=== PATIENT | male | born 1955 | race Asian ===

== ENCOUNTER 2019-06-16 01:07 | Inpatient (IN) | payer OTHER ==
--- NOTE | 2019-06-16 02:00 | PDOC ---
History of Present Illness - General Chief Complaint: Hemoptysis Stated Complaint: VOMITING BLOOD Time Seen by Provider: 06/16/19 01:31 History Source: Patient, Family (Son present at bedside.) Exam Limitations: No Limitations - History of Present Illness Initial Comments: HPI: 64 y/o male presenting to [facility] ER complaining of coughing up blood since this afternoon. Estimates approx. 15 episodes during the afternoon. Denies associated chest pain, SOB, fevers, or chills. Denies any abdominal pain, sore throat, or vomiting. Has been in normal state of health. Endorses 1 episode of night sweats earlier this week. Denies no unintentional weight loss, recent travel, or exposure to visitors from outside the country. Denies known h/o or exposure to TB. Pt is currently prescribed Plavix. Started taking it following vascular surgery by Dr. Garcia last year. Social Hx: - Former smoker, believes stopped 1.5 years ago Medical Hx: - HTN - HLD - Diabetes, not insulin dependent - H/o of ischemia of toe Review of Systems: In addition to that documented in the HPI above, the additional ROS was obtained : Constitutional: Denies fevers or chills Head: Denies vision changes ENMT: Denies sore throat CV: Denies chest pain Resp: Denies SOB GI: Denies vomiting or diarrhea : Denies painful urination MSK: Denies recent trauma Skin: Denies new rashes Neuro: Denies new numbness or tingling or weakness Endocrine: Denies polyuria Heme: Denies bleeding or bruising Physical Examination: Constitutional: Well-developed, well-nourished adult male in no acute distress or obvious discomfort. Found sitting upright on edge of hospital bed. Alert and oriented x4. Answered all questions appropriately and completely. Speech was non -labored, non-pressured. Single episode of coughing during interview produced small amount of bloody mucous. Head: Normocephalic. No obvious external signs of trauma. Eyes: Sclerae white. Ears: Hearing grossly intact. Nose: No nasal discharge. Throat: Oral cavity and pharynx normal. No inflammation, swelling, exudate, or lesions. Teeth and gingiva in good general condition. Neck: Supple, trachea is midline. Cardiovascular / Chest: Regular rate and regular rhythm. No murmur, rubs, clicks , or gallops. Peripheral pulses: radial pulses full. No pretibial edema. Respiratory: Breathing unlabored. Equal chest rise and fall. Clear to auscultation bilaterally. No stridor, no wheezing, no rhonchi. Gastrointestinal: abdomen is soft, non-tender, non-distended. Neuro: Alert and oriented. Moving all four extremities spontaneously. Skin: Warm, dry, and intact. Psych: Affect: appropriate. Mood: normal. MDM: *Reviewed vital signs, nursing notes, and prior visit documentation (if available). 64 y/o male presenting with a one day h/o of hemoptysis. Former smoker. On Plavix. No additional infectious symptoms. No B cell or additional TB symptoms/ exposures. Afebrile. Vitals unremarkable for hypotension or tachycardia. Physical exam as described above. Will further evaluate with non-con chest CT. Chest CT revealed right lower and upper lobe consolidation suggestive for possible post obstructive pneumonia. Possible right hilar mass. Pt and son deny known mass. Will obtain CBC, CMP, and blood cultures. Ordered Levaquin for community acquired pneumonia. CBC unremarkable for leukocytosis. CMP unremarkable for significant electrolyte derangement. Will admit for IV antibiotics and further workup of possible mass. 04:30 Tele[address] discussion with resident Dr. Cm. Verbally appraised of the pts HPI, ED course, and current plan of management. Will admit pt to med/surg for attending Dr. Wilson. Enrique Bustos M.D., PGY2 Emergency Medicine Resident Past History - Past Medical History Allergies/Adverse Reactions: Allergies Allergy/AdvReac Type Severity Reaction Status Date / Time Penicillins Allergy Mild Rash Verified 04/23/18 09:57 Home Medications: Ambulatory Orders metFORMIN HCL [Metformin HCl] 1,000 mg PO HS 02/03/16 Losartan Potassium [Cozaar -] 100 mg PO DAILY 03/03/18 Simvastatin 20 mg PO DAILY 03/03/18 metFORMIN HCL [Metformin HCl] 500 mg PO AM 03/03/18 Amlodipine Besylate [Norvasc -] 10 mg PO HS #30 tablet 03/09/18 Clopidogrel Bisulfate [Plavix] 75 mg PO DAILY #30 tablet 03/09/18 Hydrochlorothiazide [Hctz -] 12.5 mg PO DAILY #30 cap 03/09/18 Insulin Detemir [Levemir Flextouch] 5 unit SQ DAILY@0700 #3 insuln.pen 03/09/18 Anemia: No Asthma: No Cancer: No Cardiac Disorders: No CVA: No COPD: No CHF: No Dementia: No Diabetes: Yes GI Disorders: No Disorders: No HTN: Yes Hypercholesterolemia: Yes Liver Disease: No Seizures: No Thyroid Disease: No - Suicide/Smoking/Psychosocial Hx Smoking History: Unknown if ever smoked Have you smoked in the past 12 months: Yes Number of Cigarettes Smoked Daily: 10 'Breaking Loose' booklet given: 03/03/18 Hx Alcohol Use: Yes (weekends) Drug/Substance Use Hx: No Substance Use Type: Alcohol Hx Substance Use Treatment: No *Physical Exam - Vital Signs Last Vital Signs Temp Pulse Resp BP Pulse Ox 98.3 F 94 H 18 141/87 99 06/16/19 01:26 06/16/19 01:26 06/16/19 01:26 06/16/19 01:26 06/16/19 01:26 ED Treatment Course - LABORATORY CBC & Chemistry Diagram: 06/16/19 03:30 06/16/19 03:30 - RADIOLOGY Radiology Studies Ordered: Category Date Time Status CHEST CT WITHOUT CONTRAST [CT] Stat CT Scan 06/16/19 01:57 Ordered Radiograph Interpretation: Non-con Chest CT: THIS IS A PRELIMINARY REPORT FROM [facility] DATE OF SERVICE: 2019-06-16 02:03:50 IMAGES: [id number] EXAM: CHEST CT WITHOUT CONTRAST HISTORY: Hemoptysis COMPARISON: None. FINDINGS: There is no aortic aneurysm. There may be moderate right-sided hilar adenopathy or mass, though evaluation is limited without contrast. There is a consolidation in the right lower lobe consistent with pneumonia, unclear of postobstructive related to tumor. Additional small infiltrates noted in the right upper lobe, suggesting pneumonia. The heart size is normal. There is narrowing of the right upper lobe bronchus, possibly due to mass or adenopathy. The trachea and upper bronchi are patent. There is no pleural or pericardial effusion. Upper abdominal structures are normal IMPRESSION: Possible right hilar adenopathy or mass with narrowing of the right upper lobe bronchus. Right lower lobe and upper lobe consolidations, consistent with pneumonia, possibly postobstructive in nature and related tumor. One or more of the following dose reduction techniques were used: automated exposure control, adjustment of the mA and/or kV according to patient size, use of iterative reconstructive technique. THIS DOCUMENT HAS BEEN ELECTRONICALLY SIGNED Kuldip Montano MD 06/16/2019 02:58 EST *DC/Admit/Observation/Transfer Diagnosis at time of Disposition: Pneumonia Qualifiers: Pneumonia type: due to unspecified organism Laterality: right Lung location: unspecified part of lung Qualified Code(s): J18.9 - Pneumonia, unspecified organism - Discharge Dispostion Condition at time of disposition: Stable Decision to Admit order: Yes - Referrals - Patient Instructions - Post Discharge Activity
--- NOTE | 2019-06-16 03:02 | PDOC ---
Attending Attestation - Resident Resident Name: Enrique Bustos - ED Attending Attestation I have performed the following: I have examined & evaluated the patient, The case was reviewed & discussed with the resident, I agree w/resident's findings & plan - HPI HPI: 06/16/19 03:32 Pt comes with hemoptysis; he ahs a hx of smoking and a hx of prostate cancer. - Physicial Exam PE: 06/16/19 03:33 Agree with resident exam - Medical Decision Making 06/16/19 03:02 Patient Name: DEISI DAVIES THIS IS A PRELIMINARY REPORT FROM [facility] DATE OF SERVICE: 2019-06-16 02:03:50 IMAGES: [id number] EXAM: CHEST CT WITHOUT CONTRAST HISTORY: Hemoptysis COMPARISON: None. FINDINGS: There is no aortic aneurysm. There may be moderate right-sided hilar adenopathy or mass, though evaluation is limited without contrast. There is a consolidation in the right lower lobe consistent with pneumonia, unclear of postobstructive related to tumor. Additional small infiltrates noted in the right upper lobe, suggesting pneumonia. The heart size is normal. There is narrowing of the right upper lobe bronchus, possibly due to mass or adenopathy. The trachea and upper bronchi are patent. There is no pleural or pericardial effusion. Upper abdominal structures are normal IMPRESSION: Possible right hilar adenopathy or mass with narrowing of the right upper lobe bronchus. Right lower lobe and upper lobe consolidations, consistent with pneumonia, possibly postobstructive in nature and related tumor. 06/16/19 03:33 Pt will be admitted and labs will be sent. He needs IV abx for possible pneumonia and pulm consult for bronchoscopy to r/o primary lung cancer vs infectious/fungal mass, vs mets form prostate ca.
[2019-06-16 03:35] LABS: BASO % 0.6 % (0-2.0); HEMATOCRIT 31.9 % (35.4-49); HEMOGLOBIN 10.8 GM/dL (11.7-16.9); LYMPH % 27.2 % (8-40); MCH 28.9 pg (25.7-33.7); MCHC 33.8 g/dl (32.0-35.9); MEAN CELL VOLUME 85.7 fl (80-96); MEAN PLT VOLUME 6.7 fl (7.5-11.1); MONO % 7.1 % (3.8-10.2); NEUT % 61.1 % (42.8-82.8); PLATELET COUNT 272 K/MM3 (134-434); RBC 3.72 M/mm3 (4.00-5.60); RDW 13.3 % (11.9-15.9); WHITE BLOOD COUNT 6.1 K/mm3 (4.0-10.0)
[2019-06-16 03:57] LABS: ALBUMIN 3.1 g/dl (3.4-5.0); BILIRUBIN,TOTAL 0.3 mg/dL (0.2-1); BLOOD UREA NITROGEN 11.5 mg/dL (7-18); CALCIUM 8.6 mg/dL (8.5-10.1); CREATININE 0.9 mg/dL (0.55-1.3); POTASSIUM 4.2 mmol/L (3.5-5.1)
--- NOTE | 2019-06-16 05:36 | HP ---
CHIEF COMPLAINT: Cough with blood PCP: HISTORY OF PRESENT ILLNESS: 64 y/o M presenting to ED, accompanied by son whom translated 2/2 pt limited Korean, c/o bloody cough. Cough w blood started 3 weeks ago. Cough at visit was dry and nonproductive but pt states his concern of x15 episodes of phlegm with blood. Cough is associated with new onset of night sweats. He recently quit smoking cigarettes. He denies NVFD and chills. He has not felt dizzy or fainted. He does not experience SOB, CP, and bone pain. 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 Pt denies recent travel, sick contacts, or new foods. Pt has not been around anyone who has traveled recently to his knowledge and has not been around persons infected with TB. Pt states he only uses one pillow at night and has no night time awakening to catch his breath. Pt is not physically active by lifestyle choice so he cannot confirm how far he can walk or how many stairs he can climb. ER course was notable for: (1) CT chest with findings significant for RIGHT hilar adenopathy, RIGHT upper lobe consolidation, RIGHT lower lobe consolidation (2) Receiving levaquin Recent Travel: Denies PAST MEDICAL HISTORY: - DM - HTN - HLD - Prostate CA PAST SURGICAL HISTORY: Left iliac artery angioplasty (03/08/18) Social History: Smoking: Former smoker. 40 years at 1 ppd. Alcohol:4-5 glasses of scotch per day Drugs: Denies Family History: Allergies Penicillins Allergy (Mild, Verified 04/23/18 09:57) Rash HOME MEDICATIONS: Home Medications Medication Instructions Recorded metFORMIN HCL [Metformin HCl] 1,000 mg PO HS 02/03/16 Losartan Potassium [Cozaar -] 100 mg PO DAILY 03/03/18 Simvastatin 20 mg PO DAILY 03/03/18 metFORMIN HCL [Metformin HCl] 500 mg PO AM 03/03/18 Amlodipine Besylate [Norvasc -] 10 mg PO HS #30 tablet 03/09/18 Clopidogrel Bisulfate [Plavix] 75 mg PO DAILY #30 tablet 03/09/18 Hydrochlorothiazide [Hctz -] 12.5 mg PO DAILY #30 cap 03/09/18 Insulin Detemir [Levemir Flextouch] 5 unit SQ DAILY@0700 #3 insuln.pen 03/09/18 REVIEW OF SYSTEMS CONSTITUTIONAL: Absent: fever, chills, diaphoresis, generalized weakness, malaise, loss of appetite, weight change HEENT: Absent: rhinorrhea, nasal congestion, throat pain, throat swelling, difficulty swallowing, mouth swelling, ear pain, eye pain, visual changes CARDIOVASCULAR: Absent: chest pain, syncope, palpitations, irregular heart rate, lightheadedness , peripheral edema RESPIRATORY: Absent: cough, shortness of breath, dyspnea with exertion, orthopnea, wheezing, stridor, hemoptysis GASTROINTESTINAL: Absent: abdominal pain, abdominal distension, nausea, vomiting, diarrhea, constipation, melena, hematochezia GENITOURINARY: Absent: dysuria, frequency, urgency, hesitancy, hematuria, flank pain, genital pain MUSCULOSKELETAL: Absent: myalgia, arthralgia, joint swelling, back pain, neck pain SKIN: Absent: rash, itching, pallor HEMATOLOGIC/IMMUNOLOGIC: Absent: easy bleeding, easy bruising, lymphadenopathy, frequent infections ENDOCRINE: Absent: unexplained weight gain, unexplained weight loss, heat intolerance, cold intolerance NEUROLOGIC: Absent: headache, focal weakness or paresthesias, dizziness, unsteady gait, seizure, mental status changes, bladder or bowel incontinence PSYCHIATRIC: Absent: anxiety, depression, suicidal or homicidal ideation, hallucinations. PHYSICAL EXAMINATION Vital Signs Temp Pulse Resp BP Pulse Ox 98.3 F 87 18 135/62 96 06/16/19 05:22 06/16/19 05:22 06/16/19 05:22 06/16/19 05:22 06/16/19 05:22 GENERAL: Awake, alert, and fully oriented, in no acute distress. HEAD: Normal with no signs of trauma. EYES: Conjunctival injection.hyperemia Pupils equal, round and reactive to light , extraocular movements intact, sclera anicteric, conjunctiva clear. No lid lag. EARS, NOSE, THROAT: Ears normal, nares patent, oropharynx clear without exudates. Moist mucous membranes. NECK: NO head + neck lymphadenopathy appreciated. Normal range of motion, supple without lymphadenopathy, JVD, or masses. LUNGS: RIGHT upper lobe wheezing from posterior. Tactile dullness on RIGHT upper and middle lobe. Otherwise, breath sounds equal, clear to auscultation bilaterally. No crackles and no use of accessory muscles. HEART: Regular rate and rhythm, normal S1 and S2 without murmur, rub or gallop. ABDOMEN: Soft, nontender, not distended, normoactive bowel sounds, no guarding, no rebound, no masses. No hepatomegaly or splenomegaly. MUSCULOSKELETAL: Normal range of motion at all joints. No bony deformities or tenderness. No CVA tenderness. UPPER EXTREMITIES: NO axillary lymphadenpathy appreciated. 2+ pulses, warm, well -perfused. No cyanosis. No clubbing. No peripheral edema. LOWER EXTREMITIES: 2+ pulses, warm, well-perfused. No calf tenderness. No peripheral edema. NEUROLOGICAL: Cranial nerves II-XII intact. Normal speech. Normal gait. PSYCHIATRIC: Cooperative. Good eye contact. Appropriate mood and affect. SKIN: Warm, dry, normal turgor, no rashes or lesions noted, normal capillary refill. Laboratory Results - last 24 hr 06/16/19 06/16/19 03:30 03:30 WBC 6.1 RBC 3.72 L Hgb 10.8 L Hct 31.9 L D MCV 85.7 MCH 28.9 MCHC 33.8 RDW 13.3 Plt Count 272 D MPV 6.7 L D Absolute Neuts (auto) 3.7 Neutrophils % 61.1 Lymphocytes % 27.2 Monocytes % 7.1 Eosinophils % 4.0 Basophils % 0.6 Nucleated RBC % 0 Sodium 135 L Potassium 4.2 Chloride 102 Carbon Dioxide 20 L Anion Gap 13 BUN 11.5 Creatinine 0.9 Est GFR (CKD-EPI)AfAm 105.72 Est GFR (CKD-EPI)NonAf 91.22 Random Glucose 233 H Calcium 8.6 Total Bilirubin 0.3 AST 20 ALT 28 Alkaline Phosphatase 108 Total Protein 7.0 Albumin 3.1 L ASSESSMENT/PLAN: 64 y/o male with hemoptysis and positive lung findings on CT in the absence of physical exam findings supporting infectious process. # Poss. PNA VS poss. lung tumor - Repeat CT with contrast to elucidate RIGHT pulmonary mass - Culture sputum sample - Consult pulmonology - If CT neg. for PNA, consult oncology #F/E/N - No standing fluids - Monitor electrolytes - Diabetic diet # DVT prophylaxis - Regular ambulation q2h # Dispo Visit type - Emergency Visit Emergency Visit: Yes Care time: The patient presented to the Emergency Department on the above date and was hospitalized for further evaluation of their emergent condition. - New Patient This patient is new to me today: Yes Date on this admission: 06/16/19 - Critical Care Critical Care patient: No ATTENDING PHYSICIAN STATEMENT I saw and evaluated the patient. I reviewed the resident's note and discussed the case with the resident. I agree with the resident's findings and plan as documented. SUBJECTIVE: OBJECTIVE: ASSESSMENT AND PLAN:
--- NOTE | 2019-06-16 05:58 | PN ---
Teaching Attending Note Name of Resident: Khadar Fournier ATTENDING PHYSICIAN STATEMENT I saw and evaluated the patient. I reviewed the resident's note and discussed the case with the resident. I agree with the resident's findings and plan as documented. He is a 64 Y/O M W uncontrolled DM, HTN, HLD, PVD S/P PCI last year on plavix, EX heavy smoker and active Etoh abused( binge drinker). 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 no recent travels, has no pets in the house. Denies any urinary complaints of HX of BPH He is a binge drinker and drinks 6 drinks of whiskey/day during the day In the ED he was treated for possible PNA In exam he is afebrile, in no distress, talks in full sentences, CVS:S1S2, NO LAD, CTAB, Abd:bs+ NT/ND, Ext: no edema Labs: No leukocytosis, CT chest pending reports A&P: Hemoptysis in a smoker: less likely to be PNA and will hold off antibiotics, pending Pulm evaluation, and CT with contrast, Will also ask IR for possible Biopsy VS bronchoscopy, send sputum for CX and cytology. send Quantiferon levels. DM: will hold Po medications and will start on insulin sliding scale. PVD: on plavix, will C/W aspirin at this time pending pulmonology recs C/W statins rest of the management per HS notes
[2019-06-16] MEDS: INSULIN SLIDING SCALE (NOVOLOG) 1 VIAL SQ SCH ×4 (08:40→22:17)
[2019-06-16 08:45] LABS: INR 1.14 (0.83-1.09); PROTHROMBIN TIME (PATIENT) 13.5 SEC (9.7-13.0)
[2019-06-16 08:48] LABS: ACTIVATED PTT 34.4 SECONDS (25.2-36.5)
[2019-06-16 08:55] LABS: BASO % 0.3 % (0-2.0); EOS % 2.2 % (0-4.5); HEMATOCRIT 30.7 % (35.4-49); HEMOGLOBIN 10.6 GM/dL (11.7-16.9); LYMPH % 13.5 % (8-40); MCH 28.9 pg (25.7-33.7); MCHC 34.4 g/dl (32.0-35.9); MEAN PLT VOLUME 6.5 fl (7.5-11.1); MONO % 5.7 % (3.8-10.2); NEUT % 78.3 % (42.8-82.8); PLATELET COUNT 269 K/MM3 (134-434); RBC 3.66 M/mm3 (4.00-5.60); RDW 13.3 % (11.9-15.9); WHITE BLOOD COUNT 7.1 K/mm3 (4.0-10.0)
[2019-06-16 09:06] LABS: BILIRUBIN,TOTAL 0.6 mg/dL (0.2-1); BLOOD UREA NITROGEN 9.6 mg/dL (7-18); CALCIUM 8.7 mg/dL (8.5-10.1); CREATININE 0.8 mg/dL (0.55-1.3); MAGNESIUM 1.6 mg/dL (1.8-2.4); POTASSIUM 4.5 mmol/L (3.5-5.1); TOT PROT 7.2 g/dl (6.4-8.2)
[2019-06-16] MEDS: LOSARTAN POTASSIUM 50 MG TABLET (FP) PO SCH (09:41)
[2019-06-16] MEDS ORDERED: CLOPIDOGREL BISULFATE 75 MG TABLET (FP) PO SCH (10:00)
--- NOTE | 2019-06-16 10:25 | EKG ---
Test Reason : Blood Pressure : / mmHG Vent. Rate : 086 BPM Atrial Rate : 086 BPM P-R Int : 182 ms QRS Dur : 100 ms QT Int : 376 ms P-R-T Axes : 063 046 075 degrees QTc Int : 449 ms NORMAL SINUS RHYTHM NONSPECIFIC T WAVE ABNORMALITY ABNORMAL ECG WHEN COMPARED WITH ECG OF 03-MAR-2018 11:12, NO SIGNIFICANT CHANGE WAS FOUND Confirmed by Rea Velasco ([id number]) on 06/16/2019 10:24:33 AM Referred By: Confirmed By:Rea Velasco
--- NOTE | 2019-06-16 11:56 | CON.PULM ---
Consult Consult Specialty:: PULMONARY Referred by:: Dr Mejias Reason for Consultation:: hemoptysis - History of Present Illness Chief Complaint: hemoptysis History of Present Illness: 64yo male with h/o HTN, DM, hyperlipidemia, prostate ca, PAD who was admitted with hemoptysis. States hemoptysis started yesterday but per chart had started 3 weeks ago. Described as dark red, mixed with phlegm and about 1/2 tsp/day. No chest pain or discomfort. No history of asthma or COPD. He is a former long time smoker, started around 22yo, 1 PPD until he quit 1 1/2 years ago. He takes plavix after vascular surgery 1 1/2 years ago. No cardiac stents. No family history of cancers. 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 No fevers , chills but with occasional sweats. No unintentional weight loss. - History Source History Provided By: Patient, Family Member, Medical Record Limitations to Obtaining History: Language Barrier - Past Medical History Cardio/Vascular: Yes: HTN, Hyperlipdemia Endocrine: Yes: Diabetes Mellitus - Alcohol/Substance Use Hx Alcohol Use: Yes (weekends) - Smoking History Smoking history: Unknown if ever smoked Have you smoked in the past 12 months: Yes Aproximately how many cigarettes per day: 10 Home Medications - Allergies Allergies/Adverse Reactions: Allergies Allergy/AdvReac Type Severity Reaction Status Date / Time Penicillins Allergy Mild Rash Verified 04/23/18 09:57 - Home Medications Home Medications: Ambulatory Orders Losartan Potassium [Cozaar -] 50 mg PO DAILY 03/03/18 Simvastatin 20 mg PO DAILY 03/03/18 metFORMIN HCL [Metformin HCl] 500 mg PO BID 03/03/18 Amlodipine Besylate [Norvasc -] 10 mg PO HS #30 tablet 03/09/18 Clopidogrel Bisulfate [Plavix] 75 mg PO DAILY #30 tablet 03/09/18 Sitagliptin Phosphate [Januvia] 100 mg PO DAILY 06/16/19 Review of Systems - Review of Systems Constitutional: reports: Night Sweats. denies: Chills, Fever, Unintentional Wgt. Loss, Weakness Eyes: denies: Recent Change in Vision HENT: denies: Nasal Congestion, Throat Pain Neck: denies: Stiffness, Tenderness Cardiovascular: denies: Chest Pain, Palpitations, Shortness of Breath Respiratory: reports: Cough, Hemoptysis. denies: SOB on Exertion, Wheezing Gastrointestinal: denies: Abdominal Pain, Nausea, Vomiting Genitourinary: denies: Dysuria, Hematuria Neurological: denies: Dizziness, Headache Endocrine: denies: Unexplained Weight Loss Physical Exam Vital Sings: Vital Signs Temperature 97.8 F 06/16/19 07:00 Pulse Rate 88 06/16/19 09:35 Respiratory Rate 18 06/16/19 09:35 Blood Pressure 154/79 06/16/19 09:35 O2 Sat by Pulse Oximetry (%) 96 06/16/19 07:15 Constitutional: Yes: Calm Eyes: Yes: Conjunctiva Clear, EOM Intact HENT: Yes: Atraumatic, Normocephalic Neck: Yes: Supple, Trachea Midline Cardiovascular: Yes: Regular Rate and Rhythm Respiratory: Yes: Diminished (decreased breath sounds at the bases) ...Clubbing: No Gastrointestinal: Yes: Normal Bowel Sounds, Soft. No: Tenderness Edema: No Neurological: Yes: Alert, Oriented Labs: CBC, BMP 06/16/19 08:05 06/16/19 08:05 Imaging - Results Chest X-ray: Report Reviewed, Image Reviewed Cat Scan: Report Reviewed, Image Reviewed (RLL mass with post obstructive consolidation, patchy infiltrate RUL) Problem List - Problems (1) Hemoptysis Code(s): R04.2 - HEMOPTYSIS (2) Lung mass Code(s): R91.8 - OTHER NONSPECIFIC ABNORMAL FINDING OF LUNG FIELD Assessment/Plan Hemoptysis RLL Mass r/o Pneumonia HTN DM Hyperlipidemia PAD - CT findings suspcious for malignancy, will need biopsy but will need to be off plavix x 7 days - would give empiric antibiotics - f/u cultures - quantify hemoptysis - O2 to keep Spo2 >90% - inhaled bronchodilators as needed - outpt PFTs and PET scan - DVT prophylaxis - can continue work up as outpt Thank you for this consult Lam Dillon MD
[2019-06-16] MEDS ORDERED: INSULIN (NOVOLOG) ASPART 100 UNITS/ML 10ML VIAL ONE ×2 (11:58→16:49)
[2019-06-16] MEDS ORDERED: ALBUTEROL SO4 2.5/IPRATROPIUM 0.5 INH SOL 3 ML VIAL.NEB. NEB PRN (12:00)
--- NOTE | 2019-06-16 12:46 | PN ---
Physical Exam: SUBJECTIVE: Patient seen and examined,still with ongoing hemoptysis. Reports cough for a few weeks, but no productive sputum. no fevers, chills, dyspnea, chest pain or new concerns. OBJECTIVE: Vital Signs Period Temp Pulse Resp BP Sys/De La Torre Pulse Ox Last 24 Hr 97.8 F-98.3 F 85-94 18-18 135-154/62-87 96-99 Intake & Output 06/13/19 06/14/19 06/15/19 06/16/19 23:59 23:59 23:59 23:59 Weight 155 lb 3 oz GENERAL: lying in bed in no acute distress Neck: soft, supple, no JVD Chest: right sided rales from base upto upper 1/3rd, left basilar rales, no wheezing, pos air entry CVS:S1S2 regular Abdomen: soft, NT, ND, pos bowel sounds Extremities: no edema Psych: Appropriate, co-operative Laboratory Results - last 24 hr 06/16/19 06/16/19 06/16/19 03:30 03:30 07:53 WBC 6.1 RBC 3.72 L Hgb 10.8 L Hct 31.9 L D MCV 85.7 MCH 28.9 MCHC 33.8 RDW 13.3 Plt Count 272 D MPV 6.7 L D Absolute Neuts (auto) 3.7 Neutrophils % 61.1 Lymphocytes % 27.2 Monocytes % 7.1 Eosinophils % 4.0 Basophils % 0.6 Nucleated RBC % 0 PT with INR INR PTT (Actin FS) Sodium 135 L Potassium 4.2 Chloride 102 Carbon Dioxide 20 L Anion Gap 13 BUN 11.5 Creatinine 0.9 Est GFR (CKD-EPI)AfAm 105.72 Est GFR (CKD-EPI)NonAf 91.22 POC Glucometer 192 Random Glucose 233 H Calcium 8.6 Magnesium Total Bilirubin 0.3 AST 20 ALT 28 Alkaline Phosphatase 108 Total Protein 7.0 Albumin 3.1 L 06/16/19 06/16/19 06/16/19 08:05 08:05 08:05 WBC 7.1 RBC 3.66 L Hgb 10.6 L Hct 30.7 L MCV 84.0 MCH 28.9 MCHC 34.4 RDW 13.3 Plt Count 269 MPV 6.5 L Absolute Neuts (auto) 5.6 Neutrophils % 78.3 D Lymphocytes % 13.5 D Monocytes % 5.7 Eosinophils % 2.2 Basophils % 0.3 Nucleated RBC % 0 PT with INR 13.50 H INR 1.14 H PTT (Actin FS) 34.4 Sodium 135 L Potassium 4.5 Chloride 102 Carbon Dioxide 23 Anion Gap 10 BUN 9.6 Creatinine 0.8 Est GFR (CKD-EPI)AfAm 110.96 Est GFR (CKD-EPI)NonAf 95.74 POC Glucometer Random Glucose 215 H Calcium 8.7 Magnesium 1.6 L Total Bilirubin 0.6 AST 22 ALT 27 Alkaline Phosphatase 117 Total Protein 7.2 Albumin 3.0 L 06/16/19 11:52 WBC RBC Hgb Hct MCV MCH MCHC RDW Plt Count MPV Absolute Neuts (auto) Neutrophils % Lymphocytes % Monocytes % Eosinophils % Basophils % Nucleated RBC % PT with INR INR PTT (Actin FS) Sodium Potassium Chloride Carbon Dioxide Anion Gap BUN Creatinine Est GFR (CKD-EPI)AfAm Est GFR (CKD-EPI)NonAf POC Glucometer 254 Random Glucose Calcium Magnesium Total Bilirubin AST ALT Alkaline Phosphatase Total Protein Albumin Active Medications Generic Name Dose Route Start Last Admin Trade Name Freq PRN Reason Stop Dose Admin Albuterol/Ipratropium 1 amp 06/16/19 12:00 Duoneb - NEB Q6H PRN SHORTNESS OF BREATH Amlodipine Besylate 10 mg 06/16/19 22:00 Norvasc - PO HS MOLLY Ceftriaxone Sodium 1 gm/ 50 mls @ 100 mls/hr 06/17/19 10:00 Dextrose IVPB DAILY MOLLY Azithromycin 500 mg in 250 mls @ 250 mls/hr 06/17/19 10:00 Zithromax 500mg Ivpb (Pre-Docked) IVPB 06/21/19 10:59 DAILY MOLLY Insulin Aspart 1 vial 06/16/19 07:00 06/16/19 12:00 Novolog Vial Sliding Scale - SQ 6 units ACHS MOLLY Administration Protocol Losartan Potassium 50 mg 06/16/19 10:00 06/16/19 09:41 Cozaar - PO 50 mg DAILY MOLLY Administration CT chest results and images reviewed ASSESSMENT/PLAN: 64 yom with PMhx of HTN, HLD, NIDDM, PAD s/p Left iliac vessel angioplasty/PCI , ex heavy smoker, Prostate Ca admitted with hemoptysis and found with lung mass and suspect post operative consolidation. -Suspect RLL lung mass -S/p Post obstructive PNA -PAD s/p left iliac vessel angioplasty/PCI 02/2018 -NIDDM -HTN -HLD -Prostate Ca Plan: Pulmonary input noted. Emperic ceftriaxone/azithromycin. Transition to levaquin in 24 hours if no concerns. QFT sent. ID/oncology input. D/c plavix. Will need to be off plavix for 7 days for biopsy. ISS, hold metformin. resume januvia based on blood sugar readings Continue losartan/amlodipine DVTPPX SCDs , encourage ambulation dipo plan for d/c home in 24 hours if h/h stable, no concerning hemoptysis, no new concerns for infection with outpatient follow up for biopsy in 1week. Discussed with patient and at bedside, all questions answered. Visit type - Emergency Visit Emergency Visit: Yes ED Registration Date: 06/16/19 Care time: The patient presented to the Emergency Department on the above date and was hospitalized for further evaluation of their emergent condition. - New Patient This patient is new to me today: Yes Date on this admission: 06/16/19 - Critical Care Critical Care patient: No - Discharge Referral Referred to [facility] Med P.C.: No
--- NOTE | 2019-06-16 14:37 | PN ---
Progress Note (short form) - Note Progress Note: ID CONSULT DICTATED R LUNG MASS R/O POST OBSTRUCTIVE PNEUMONIA HEMOPTYSIS PCN ALLERGY OBTAIN SPUTUM C/S,AFB, QUANTIFERON SPUTUM CYTOLOGY CONTINUE CEFTRIAXONE/ ZITHROMAX
[2019-06-16] MEDS: guaiFENesin/D-M SUGAR-FREE/ACLHOL-FREE 118 ML BOTTLE PO PRN ×2 (17:22→22:09)
[2019-06-16] MEDS ORDERED: PT OWN MED DRAWER 7, Y5N ONE ×2 (17:37→21:59)
--- NOTE | 2019-06-16 19:32 | CONS ---
INFECTIOUS DISEASE CONSULTATION DATE OF CONSULTATION: DATE OF DICTATION: 06/16/2019 HISTORY OF PRESENT ILLNESS: The patient is a 64-year-old male who was evaluated for pneumonia. He reports developing a dry cough approximately 1 week prior to admission. He took [id number] remedies without significant improvement. He developed ariana hemoptysis and is now admitted for further evaluation. A CAT scan of the chest was performed and shows a right lower lobe mass lesion with right hilar and mediastinal adenopathy. Postobstructive pneumonitis could not be excluded. He is awake and alert, seated in bed. He denies any chest pain, denies any dyspnea at rest. No fever or chills. He had previously been feeling well. Denies any ill contacts. Recent travel to [place] in March 2019. Denies fevers, chills, night sweats, weight loss. PAST MEDICAL HISTORY: Positive for coronary artery disease status post coronary artery stent on Plavix, hypertension, diabetes, hyperlipidemia, ischemic toe, prostate cancer status post radiation therapy. ALLERGIES: PENICILLIN, reports pruritus. No history of anaphylaxis. MEDICATIONS: At the present time include albuterol, amlodipine, Zithromax, ceftriaxone, insulin, losartan. SOCIAL HISTORY: Originally from [facility], has been living in the [facility] for the past 25 years. He was formerly a heavy smoker, stopping approximately a year and a half ago. Positive active alcohol ingestion. 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 SYSTEMS REVIEW: Neurologic: No loss of consciousness, seizure activity, focal weakness. Cardiac: Negative chest pain or palpitations. Respiratory: As per HPI. Gastrointestinal: Negative vomiting or diarrhea. Genitourinary: Negative for urinary tract infection. LABORATORY DATA: White count 7.1, 78 neutrophils, 13 lymphocytes, 5 monocytes, 2 eosinophils. BUN 9, creatinine 0.8. Cultures are pending. PHYSICAL EXAMINATION:General: He is awake and alert, seated in bed, in no acute distress. Breathing is nonlabored. Vital Signs: Temperature 97.8, blood pressure 154/79, pulse 88 and regular, respirations 18 per minute. HEENT: Sclerae are anicteric. Heart Sounds: S1, S2. Lungs: Diminished breath sounds at the right base, few rhonchi. Abdomen: Soft and nontender. Extremities: Negative for edema. IMPRESSION: 1. Right lung mass, rule out postobstructive pneumonia. 2. Ariana hemoptysis. 3. PENICILLIN allergy. PLAN: CAT scan findings suggestive of a right lung mass with hilar and mediastinal adenopathy, cannot rule out a postobstructive pneumonia. In light of hemoptysis and travel history to [place], will obtain sputum AFB and PCR. Obtain QuantiFERON. Empiric antibiotic coverage in this PENICILLIN-allergic patient with ceftriaxone and Zithromax. Pulmonary evaluation. Will require a biopsy once off Plavix. Case discussed with family members present at the time of examination. Thank you for your kind referral. MAGDI PAYTON M.D. NICOL/[id number]
[2019-06-16] MEDS ORDERED: ATORVASTATIN CA 10 MG TABLET (FP) PO SCH (22:00)
[2019-06-16] MEDS: amLODIPine BESYLATE 10 MG TABLET (FP) PO SCH (22:08)
--- NOTE | 2019-06-16 22:51 | CONSULT ---
Consult Consult Specialty:: Oncology Referred by:: Dr. Wilson Reason for Consultation:: Lung mass - History of Present Illness Chief Complaint: SOB History of Present Illness: 64M, ex-smoker (1 ppd until 1.5 years ago), with HTN, DM, hx of prostate cancer s/p, PAD, on Plavix, presented with hemoptysis for [address] scan of chest showed RLL mass with post-obstructive consolidation and patchy infiltrate RUL ( official report pending). On empiric Abx. Evaluated by pulm for possible bronch but need to wait due to Plavix. Continues to have hemoptysis. Denies weight loss, chest pain. Endorses intermittent SOB - Past Medical History Cardio/Vascular: Yes: HTN, Hyperlipdemia Endocrine: Yes: Diabetes Mellitus - Alcohol/Substance Use Hx Alcohol Use: Yes (weekends) - Smoking History Smoking history: Unknown if ever smoked Have you smoked in the past 12 months: Yes Aproximately how many cigarettes per day: 10 If you are a former smoker, when did you quit?: one & 1/2 year Home Medications - Allergies Allergies/Adverse Reactions: Allergies Allergy/AdvReac Type Severity Reaction Status Date / Time Penicillins Allergy Mild Rash Verified 04/23/18 09:57 - Home Medications Home Medications: Ambulatory Orders Losartan Potassium [Cozaar -] 50 mg PO DAILY 03/03/18 Simvastatin 20 mg PO DAILY 03/03/18 metFORMIN HCL [Metformin HCl] 500 mg PO BID 03/03/18 Amlodipine Besylate [Norvasc -] 10 mg PO HS #30 tablet 03/09/18 Clopidogrel Bisulfate [Plavix] 75 mg PO DAILY #30 tablet 03/09/18 Sitagliptin Phosphate [Januvia] 100 mg PO DAILY 06/16/19 Review of Systems - Review of Systems Constitutional: denies: Fever, Loss of Appetite, Unintentional Wgt. Loss, Weakness HENT: reports: No Symptoms Cardiovascular: reports: Shortness of Breath. denies: Chest Pain Respiratory: reports: Cough, Hemoptysis Gastrointestinal: reports: No Symptoms Physical Exam Vital Signs: Vital Signs Temperature 99.5 F 06/16/19 21:49 Pulse Rate 84 06/16/19 21:49 Respiratory Rate 20 06/16/19 21:49 Blood Pressure 159/88 06/16/19 21:49 O2 Sat by Pulse Oximetry (%) 96 06/16/19 07:15 Constitutional: Yes: Well Nourished, No Distress Eyes: Yes: Conjunctiva Clear Cardiovascular: Yes: Regular Rate and Rhythm Respiratory: Yes: Regular, CTA Bilaterally Gastrointestinal: Yes: Soft. No: Distention, Tenderness Edema: Yes Edema: LLE: 1+, RLE: 1+ Labs: CBC, BMP 06/16/19 08:05 06/16/19 08:05 Imaging - Results Cat Scan: Report Reviewed Assessment/Plan 64M, with significant smoking history, presented with hemoptysis and found to have RLL lung mass. Possible bronch. Please obtain CT abd/pel to eval for distant disease. Will follow.
[2019-06-17] MEDS: guaiFENesin/D-M SUGAR-FREE/ACLHOL-FREE 118 ML BOTTLE PO PRN (06:46)
[2019-06-17] MEDS: INSULIN SLIDING SCALE (NOVOLOG) 1 VIAL SQ SCH ×4 (06:47→22:28)
[2019-06-17 08:21] LABS: BASO % 0.4 % (0-2.0); EOS % 1.7 % (0-4.5); HEMATOCRIT 31.8 % (35.4-49); HEMOGLOBIN 11.1 GM/dL (11.7-16.9); MCH 29.2 pg (25.7-33.7); MEAN CELL VOLUME 83.4 fl (80-96); MEAN PLT VOLUME 6.7 fl (7.5-11.1); MONO % 7.9 % (3.8-10.2); PLATELET COUNT 278 K/MM3 (134-434); RBC 3.81 M/mm3 (4.00-5.60); RDW 13.9 % (11.9-15.9); WHITE BLOOD COUNT 6.7 K/mm3 (4.0-10.0)
--- NOTE | 2019-06-17 09:55 | PN ---
Physical Exam: SUBJECTIVE: Patient seen and examined at bed side , feeling better but still coughing blood. denies any fever , chest pain N/V/D/C. OBJECTIVE: Vital Signs Period Temp Pulse Resp BP Sys/De La Torre Pulse Ox Last 24 Hr 98.7 F-99.5 F 84-89 18-20 148-159/75-89 95 GENERAL: AAOx3 in NAD HEAD: NC/AT EYES: EOMI, Conjunctiva clear, sclera anicteric ENT: moist mucous membrane NECK: Supple, no JVD LUNGS: decrease breath sounds at the bases , right side rales , no wheezing no accessory muscle use HEART: NSR, normal s1, s2, no M/R/G ABDOMEN: Soft, ND, NT, +BS 4 Q, no CVA Tenderness LOWER EXTREMITIES: no edema, +2DP pulse, NEUROLOGICAL: No focal deficit. Normal speech. gait not observed. PSYCHIATRIC: Cooperative. Good eye contact. Appropriate mood and affect. SKIN: Warm, dry, Laboratory Results - last 24 hr 06/16/19 06/16/19 06/16/19 11:52 16:33 22:13 WBC RBC Hgb Hct MCV MCH MCHC RDW Plt Count MPV Absolute Neuts (auto) Neutrophils % Lymphocytes % Monocytes % Eosinophils % Basophils % Nucleated RBC % POC Glucometer 254 192 190 06/17/19 06/17/19 06:10 06:43 WBC 6.7 RBC 3.81 L Hgb 11.1 L Hct 31.8 L MCV 83.4 MCH 29.2 MCHC 35.0 RDW 13.9 Plt Count 278 MPV 6.7 L Absolute Neuts (auto) 4.9 Neutrophils % 73.0 Lymphocytes % 17.0 D Monocytes % 7.9 Eosinophils % 1.7 Basophils % 0.4 Nucleated RBC % 0 POC Glucometer 177 Active Medications Generic Name Dose Route Start Last Admin Trade Name Freq PRN Reason Stop Dose Admin Albuterol/Ipratropium 1 amp 06/16/19 12:00 Duoneb - NEB Q6H PRN SHORTNESS OF BREATH Amlodipine Besylate 10 mg 06/16/19 22:00 06/16/19 22:08 Norvasc - PO 10 mg HS MOLLY Administration Guaifenesin 5 ml 06/16/19 16:41 06/17/19 06:46 Diabetic Tussin Dm - PO 5 ml Q4H PRN Administration COUGH Insulin Aspart 1 vial 06/16/19 07:00 06/17/19 06:47 Novolog Vial Sliding Scale - SQ 2 units ACHS MOLLY Administration Protocol Losartan Potassium 50 mg 06/16/19 10:00 06/16/19 09:41 Cozaar - PO 50 mg DAILY MOLLY Administration CBC, BMP 06/17/19 06:10 06/16/19 08:05 06/16/2019 Ct chest w contrat IMPRESSION: 1. Large right lower lobe mass strongly suspicious for malignancy. 2. Extensive right hilar and mediastinal lymphadenopathy. 3. Postobstructive consolidation right lower lobe with additional small right upper lobe infiltrate. Clinical correlation and follow-up recommended. Please see above discussion. ASSESSMENT/PLAN: 64 y/o male with hemoptysis and positive lung findings on CT in the absence of physical exam findings supporting infectious process. # Hemoptysis # Post obstructive . PNA R.o malignancy , less likley TB - Culture sputum sample - sputum cytology - AFB x3 sputum - Consult pulmonology - consult oncology - hold plavix as pt will need biopsy after 7 days - Abx per ID Ceftin 500 bid Po, -h.o pencillin allergy only rash , tolerating cephalosporins -consult thoracic surgery :Dr Guillory Recommend outpatient pet scan, but could consider CT guided biopsy or bronch as inpatient to determine if this is lung cancer.and cranial imaging -PAD s/p left iliac vessel angioplasty/PCI 02/2018: hold plavix in term of need for biopsy -NIDDM hold metformin resume Januvia -HTN , cont home meds losartan and amlodipine -HLD cont home meds -Prostate Ca on #F/E/N - No standing fluids - Monitor electrolytes - Diabetic diet # DVT prophylaxis - Regular ambulation q2h # Dispo - DC in 1-2 days pending AFB results and follow up out pt in term of lung cancer Visit type - Emergency Visit Emergency Visit: Yes ED Registration Date: 06/16/19 Care time: The patient presented to the Emergency Department on the above date and was hospitalized for further evaluation of their emergent condition. - New Patient This patient is new to me today: Yes Date on this admission: 06/17/19 - Critical Care Critical Care patient: No ATTENDING PHYSICIAN STATEMENT I saw and evaluated the patient. I reviewed the resident's note and discussed the case with the resident. I agree with the resident's findings and plan as documented. SUBJECTIVE: OBJECTIVE: ASSESSMENT AND PLAN:
[2019-06-17] MEDS ORDERED: levoFLOXacin 750 MG TABLET PO SCH (10:00)
[2019-06-17] MEDS ORDERED: AZITHROMYCIN IVPB 500 MG/250 ML BAG IVPB SCH (10:00)
[2019-06-17] MEDS ORDERED: CEFTRIAXONE 1 GM in DEXTROSE 5%-WATER - 50 ML IVPB SCH (10:00)
--- NOTE | 2019-06-17 10:50 | PN ---
Progress Note (short form) - Note Progress Note: Still with dark hemoptysis mixed with sputum. Quantity seems to be several teaspoons according to the patient. No CP. Afebrile. Intake & Output 06/14/19 06/15/19 06/16/19 06/17/19 23:59 23:59 23:59 23:59 Intake Total 200 Balance 200 Weight 155 lb 0.3 oz Last Vital Signs Temp Pulse Resp BP Pulse Ox 98.7 F 84 18 158/89 95 06/17/19 06:28 06/17/19 06:28 06/17/19 06:28 06/17/19 06:28 06/16/19 21:00 Active Medications Albuterol/Ipratropium (Duoneb -) 1 amp NEB Q6H PRN PRN Reason: SHORTNESS OF BREATH Amlodipine Besylate (Norvasc -) 10 mg PO HS [facility] Last Admin: 06/16/19 22:08 Dose: 10 mg Cefuroxime Axetil (Ceftin -) 500 mg PO BID [facility] Guaifenesin (Diabetic Tussin Dm -) 5 ml PO Q4H PRN PRN Reason: COUGH Last Admin: 06/17/19 06:46 Dose: 5 ml Insulin Aspart (Novolog Vial Sliding Scale -) 1 vial SQ ACHS [facility]; Protocol Last Admin: 06/17/19 06:47 Dose: 2 units Losartan Potassium (Cozaar -) 50 mg PO DAILY [facility] Last Admin: 06/16/19 09:41 Dose: 50 mg Constitutional: Yes: NAD Eyes: Yes: Conjunctiva Clear, EOM Intact HENT: Yes: Atraumatic, Normocephalic Neck: Yes: Supple, Trachea Midline Cardiovascular: Yes: Regular Rate and Rhythm Respiratory: Yes: Diminished (decreased breath sounds at the bases) ...Clubbing: No Gastrointestinal: Yes: Normal Bowel Sounds, Soft. No: Tenderness Edema: No Neurological: Yes: Alert, Oriented Labs: Laboratory Results - last 24 hr 06/16/19 06/16/19 06/16/19 11:52 16:33 22:13 WBC RBC Hgb Hct MCV MCH MCHC RDW Plt Count MPV Absolute Neuts (auto) Neutrophils % Lymphocytes % Monocytes % Eosinophils % Basophils % Nucleated RBC % POC Glucometer 254 192 190 06/17/19 06/17/19 06:10 06:43 WBC 6.7 RBC 3.81 L Hgb 11.1 L Hct 31.8 L MCV 83.4 MCH 29.2 MCHC 35.0 RDW 13.9 Plt Count 278 MPV 6.7 L Absolute Neuts (auto) 4.9 Neutrophils % 73.0 Lymphocytes % 17.0 D Monocytes % 7.9 Eosinophils % 1.7 Basophils % 0.4 Nucleated RBC % 0 POC Glucometer 177 Problem List - Problems (1) Hemoptysis Code(s): R04.2 - HEMOPTYSIS (2) Lung mass Code(s): R91.8 - OTHER NONSPECIFIC ABNORMAL FINDING OF LUNG FIELD Assessment/Plan Hemoptysis RLL Mass High clinical suspicion of Malignancy r/o Pneumonia HTN DM Hyperlipidemia PAD - CT findings suspcious for malignancy: ideally EBUS of the mediastinum to establish diagnosis and stage - ABX per ID - f/u cultures - quantify hemoptysis - O2 to keep Spo2 >90% - inhaled bronchodilators as needed - outpt PFTs and PET scan - DVT prophylaxis - Follow sputum AFB Dr Dominguez
--- NOTE | 2019-06-17 11:41 | PN ---
Teaching Attending Note Name of Resident: Nathan Hughes ATTENDING PHYSICIAN STATEMENT I saw and evaluated the patient. I reviewed the resident's note and discussed the case with the resident. I agree with the resident's findings and plan as documented with exceptions below. SUBJECTIVE: Patient seen and examined, ongoing hemoptysis per patient and . OBJECTIVE: Vital Signs Period Temp Pulse Resp BP Sys/De La Torre Pulse Ox Last 24 Hr 97.8 F-99.5 F 84-89 18-20 148-159/70-89 95 Intake & Output 06/14/19 06/15/19 06/16/19 06/17/19 23:59 23:59 23:59 23:59 Intake Total 200 Balance 200 Weight 155 lb 0.3 oz GENERAL: lying in bed in no acute distress Neck: soft, supple, no JVD Chest: right sided rales from base upto upper 1/3rd, left basilar rales, no wheezing, pos air entry CVS:S1S2 regular Abdomen: soft, NT, ND, pos bowel sounds Extremities: no edema Psych: Appropriate, co-operative Home Medications Medication Instructions Recorded Losartan Potassium [Cozaar -] 50 mg PO DAILY 03/03/18 Simvastatin 20 mg PO DAILY 03/03/18 metFORMIN HCL [Metformin HCl] 500 mg PO BID 03/03/18 Amlodipine Besylate [Norvasc -] 10 mg PO HS #30 tablet 03/09/18 Clopidogrel Bisulfate [Plavix] 75 mg PO DAILY #30 tablet 03/09/18 Sitagliptin Phosphate [Januvia] 100 mg PO DAILY 06/16/19 Active Medications Albuterol/Ipratropium (Duoneb -) 1 amp NEB Q6H PRN PRN Reason: SHORTNESS OF BREATH Amlodipine Besylate (Norvasc -) 10 mg PO HS [facility] Last Admin: 06/16/19 22:08 Dose: 10 mg Cefuroxime Axetil (Ceftin -) 500 mg PO BID [facility] Guaifenesin (Diabetic Tussin Dm -) 5 ml PO Q4H PRN PRN Reason: COUGH Last Admin: 06/17/19 06:46 Dose: 5 ml Insulin Aspart (Novolog Vial Sliding Scale -) 1 vial SQ [facility]; Protocol Last Admin: 06/17/19 06:47 Dose: 2 units Losartan Potassium (Cozaar -) 50 mg PO DAILY [facility] Last Admin: 06/16/19 09:41 Dose: 50 mg Laboratory Results - last 24 hr 06/16/19 06/16/19 06/16/19 11:52 16:33 22:13 WBC RBC Hgb Hct MCV MCH MCHC RDW Plt Count MPV Absolute Neuts (auto) Neutrophils % Lymphocytes % Monocytes % Eosinophils % Basophils % Nucleated RBC % POC Glucometer 254 192 190 06/17/19 06/17/19 06:10 06:43 WBC 6.7 RBC 3.81 L Hgb 11.1 L Hct 31.8 L MCV 83.4 MCH 29.2 MCHC 35.0 RDW 13.9 Plt Count 278 MPV 6.7 L Absolute Neuts (auto) 4.9 Neutrophils % 73.0 Lymphocytes % 17.0 D Monocytes % 7.9 Eosinophils % 1.7 Basophils % 0.4 Nucleated RBC % 0 POC Glucometer 177 ASSESSMENT AND PLAN: 64 yom with PMhx of HTN, HLD, NIDDM, PAD s/p Left iliac vessel angioplasty/PCI , ex heavy smoker, Prostate Ca admitted with hemoptysis and found with lung mass and suspect post operative consolidation. -RLL Lung mass with hilar/mediastinal lymphadenopathy suspicious for malignancy -R/o Post obstructive PNA -Hemoptysis -PAD s/p left iliac vessel angioplasty/PCI 02/2018 -NIDDM -HTN -HLD -Prostate Ca Plan: Discussed with pulmonary, plan for outpatient follow up with Dr. Guillory for likely EBUS/lung biopsy. Will need to be off plavix for 7 days. Sputum AFB x3 and QFT but low suspicion for active TB, CT findings and presentation are highly suspicious for malignancy. Discussed with ID, changed for cefuroxime. Oncology input noted. Recent CT chest with contrast. Will wait atleast 48-72 hours to repeat contrast. Can be pursued outpatient. PFTs/PET outpatient. h/h stable. ISS, hold metformin. resume januvia based on blood sugar readings Continue losartan/amlodipine DVTPPX SCDs , encourage ambulation Dispo plan for d/c home 1-2 days if h/h stable, no concerning hemoptysis, sputum AFB, with outpatient follow up for biopsy in 1 week. Discussed with patient and at bedside, all questions answered. Informed about need for follow up for biopsy and pulmonary/oncology follow up.
[2019-06-17] MEDS ORDERED: INSULIN (NOVOLOG) ASPART 100 UNITS/ML 10ML VIAL ONE (11:44)
[2019-06-17] MEDS: LOSARTAN POTASSIUM 50 MG TABLET (FP) PO SCH (11:50)
[2019-06-17] MEDS: CEFUROXIME AXETIL 500 MG TABLET PO SCH ×2 (11:51→22:21)
[2019-06-17 14:01] VITALS: BMI 23.6
--- NOTE | 2019-06-17 14:59 | PN ---
Progress Note (short form) - Note Progress Note: Thoracic Surgery: Images reviewed. Likely advanced malignancy, at least stage 3. Recommend outpatient pet scan, but could consider CT guided biopsy or bronch as inpatient to determine if this is lung cancer. However, optimal staging would have PET before biopsy bc there may be other potential areas of biopsy suggesting stage 4 disease. Also, recommend cranial imaging. If no obvious mets , an EBUS of the paratracheal node would establish stage 3 disease.
--- NOTE | 2019-06-17 18:08 | PN ---
Progress Note, Physician History of Present Illness: AWAKE, ALERT SEATED IN BED REPORTS + HEMOPTYSIS NO C/O CHEST PAIN/ DYSPNEA OCCASIONAL COUGH TOLERATED CEPHALSPORIN NO FEVER/ CHILLS WBC WNL - Current Medication List Current Medications: Active Medications Albuterol/Ipratropium (Duoneb -) 1 amp NEB Q6H PRN PRN Reason: SHORTNESS OF BREATH Amlodipine Besylate (Norvasc -) 10 mg PO HS [facility] Last Admin: 06/16/19 22:08 Dose: 10 mg Cefuroxime Axetil (Ceftin -) 500 mg PO BID [facility] Last Admin: 06/17/19 11:51 Dose: 500 mg Guaifenesin (Diabetic Tussin Dm -) 5 ml PO Q4H PRN PRN Reason: COUGH Last Admin: 06/17/19 06:46 Dose: 5 ml Insulin Aspart (Novolog Vial Sliding Scale -) 1 vial SQ ACHS [facility]; Protocol Last Admin: 06/17/19 16:50 Dose: 4 units Losartan Potassium (Cozaar -) 50 mg PO DAILY [facility] Last Admin: 06/17/19 11:50 Dose: 50 mg - Objective Vital Signs: Vital Signs Temperature 99.2 F 06/17/19 17:55 Pulse Rate 80 06/17/19 17:55 Respiratory Rate 18 06/17/19 17:55 Blood Pressure 151/78 06/17/19 17:55 O2 Sat by Pulse Oximetry (%) 95 06/17/19 10:00 Constitutional: Yes: No Distress Cardiovascular: Yes: Regular Rate and Rhythm, S1, S2 Respiratory: Yes: Other (+ CREPITATIONS R BASE) Gastrointestinal: Yes: Normal Bowel Sounds, Soft Labs: CBC, BMP 06/17/19 06:10 06/16/19 08:05 INR, PTT INR 1.14 (0.83-1.09) H 06/16/19 08:05 Assessment/Plan R LUNG MASS/ CONSOLIDATION R/O MALIGNANCY R/O POST OBSTRUCTIVE PNEUMONIA HEMOPTYSIS PCN ALLERGY AWAIT AFB CONTINUE CEFTIN BX PER PULMONARY
[2019-06-17] MEDS: amLODIPine BESYLATE 10 MG TABLET (FP) PO SCH (22:21)
[2019-06-18] MEDS: INSULIN SLIDING SCALE (NOVOLOG) 1 VIAL SQ SCH ×4 (06:36→21:17)
[2019-06-18 08:00] LABS: BASO % 0.4 % (0-2.0); EOS % 2.2 % (0-4.5); HEMATOCRIT 33.6 % (35.4-49); HEMOGLOBIN 11.6 GM/dL (11.7-16.9); LYMPH % 23.7 % (8-40); MCHC 34.5 g/dl (32.0-35.9); MEAN CELL VOLUME 84.1 fl (80-96); MEAN PLT VOLUME 6.9 fl (7.5-11.1); MONO % 6.8 % (3.8-10.2); NEUT % 66.9 % (42.8-82.8); PLATELET COUNT 304 K/MM3 (134-434); RBC 3.99 M/mm3 (4.00-5.60); RDW 13.6 % (11.9-15.9)
[2019-06-18 08:19] LABS: MAGNESIUM 2.1 mg/dL (1.8-2.4)
[2019-06-18] MEDS: CEFUROXIME AXETIL 500 MG TABLET PO SCH ×2 (09:55→21:20)
[2019-06-18] MEDS: LOSARTAN POTASSIUM 50 MG TABLET (FP) PO SCH (09:55)
--- NOTE | 2019-06-18 11:18 | PN ---
Progress Note (short form) - Note Progress Note: Breathing feels a little better today. Less hemoptysis. Reported as dark and less in volume. No CP. Afebrile. Intake & Output 06/15/19 06/16/19 06/17/19 06/18/19 23:59 23:59 23:59 23:59 Intake Total 200 800 Balance 200 800 Weight 155 lb 0.3 oz 155 lb Last Vital Signs Temp Pulse Resp BP Pulse Ox 98.6 F 82 18 162/79 97 06/18/19 09:45 06/18/19 09:45 06/18/19 09:45 06/18/19 09:45 06/18/19 10:00 Active Medications Albuterol/Ipratropium (Duoneb -) 1 amp NEB Q6H PRN PRN Reason: SHORTNESS OF BREATH Amlodipine Besylate (Norvasc -) 10 mg PO HS [facility] Last Admin: 06/17/19 22:21 Dose: 10 mg Cefuroxime Axetil (Ceftin -) 500 mg PO BID [facility] Last Admin: 06/18/19 09:55 Dose: 500 mg Guaifenesin (Diabetic Tussin Dm -) 5 ml PO Q4H PRN PRN Reason: COUGH Last Admin: 06/17/19 06:46 Dose: 5 ml Insulin Aspart (Novolog Vial Sliding Scale -) 1 vial SQ [facility]; Protocol Last Admin: 06/18/19 06:36 Dose: 2 units Losartan Potassium (Cozaar -) 50 mg PO DAILY [facility] Last Admin: 06/18/19 09:55 Dose: 50 mg Constitutional: Yes: NAD Eyes: Yes: Conjunctiva Clear, EOM Intact HENT: Yes: Atraumatic, Normocephalic Neck: Yes: Supple, Trachea Midline Cardiovascular: Yes: Regular Rate and Rhythm Respiratory: Yes: Diminished (decreased breath sounds at the bases) ...Clubbing: No Gastrointestinal: Yes: Normal Bowel Sounds, Soft. No: Tenderness Edema: No Neurological: Yes: Alert, Oriented Labs: Laboratory Results - last 24 hr 06/17/19 06/17/19 06/17/19 11:53 16:47 22:25 WBC RBC Hgb Hct MCV MCH MCHC RDW Plt Count MPV Absolute Neuts (auto) Neutrophils % Lymphocytes % Monocytes % Eosinophils % Basophils % Nucleated RBC % POC Glucometer 248 235 288 Phosphorus Magnesium 08/06/19 08/06/19 08/06/19 06:35 06:50 06:50 WBC 7.0 RBC 3.99 L Hgb 11.6 L Hct 33.6 L MCV 84.1 MCH 29.0 MCHC 34.5 RDW 13.6 Plt Count 304 MPV 6.9 L Absolute Neuts (auto) 4.7 Neutrophils % 66.9 Lymphocytes % 23.7 D Monocytes % 6.8 Eosinophils % 2.2 Basophils % 0.4 Nucleated RBC % 0 POC Glucometer 153 Phosphorus 4.0 Magnesium 2.1 Problem List - Problems (1) Hemoptysis Code(s): R04.2 - HEMOPTYSIS (2) Lung mass Code(s): R91.8 - OTHER NONSPECIFIC ABNORMAL FINDING OF LUNG FIELD Assessment/Plan Hemoptysis RLL Mass High clinical suspicion of Malignancy r/o Pneumonia HTN DM Hyperlipidemia PAD - CTS evaluation noted: agree that PET is helpful to determine optimal site for diagnosis/staging (ie EBUS) - ABX per ID - f/u cultures - quantify hemoptysis - O2 to keep Spo2 >90% - inhaled bronchodilators as needed - outpt PFTs and PET scan - DVT prophylaxis - Follow sputum AFB Dr Dominguez
--- NOTE | 2019-06-18 14:35 | PN ---
Physical Exam: SUBJECTIVE: Patient seen and examined, blood tinged sputum, no new dyspnea, headache or concerns. OBJECTIVE: Vital Signs Period Temp Pulse Resp BP Sys/De La Torre Pulse Ox Last 24 Hr 98.3 F-99.2 F 79-82 18-18 139-162/73-80 95-97 Intake & Output 06/15/19 06/16/19 06/17/19 06/18/19 23:59 23:59 23:59 23:59 Intake Total 200 800 Balance 200 800 Weight 155 lb 0.3 oz 155 lb GENERAL: lying in bed in no acute distress Neck: soft, supple, no JVD Chest: right sided rales from base upto upper 1/3rd, left basilar rales, no wheezing, pos air entry CVS:S1S2 regular Abdomen: soft, NT, ND, pos bowel sounds Extremities: no edema Psych: Appropriate, co-operative Laboratory Results - last 24 hr 06/17/19 06/17/19 06/18/19 16:47 22:25 06:35 WBC RBC Hgb Hct MCV MCH MCHC RDW Plt Count MPV Absolute Neuts (auto) Neutrophils % Lymphocytes % Monocytes % Eosinophils % Basophils % Nucleated RBC % POC Glucometer 235 288 153 Phosphorus Magnesium 06/18/19 06/18/19 06/18/19 06:50 06:50 11:34 WBC 7.0 RBC 3.99 L Hgb 11.6 L Hct 33.6 L MCV 84.1 MCH 29.0 MCHC 34.5 RDW 13.6 Plt Count 304 MPV 6.9 L Absolute Neuts (auto) 4.7 Neutrophils % 66.9 Lymphocytes % 23.7 D Monocytes % 6.8 Eosinophils % 2.2 Basophils % 0.4 Nucleated RBC % 0 POC Glucometer 182 Phosphorus 4.0 Magnesium 2.1 Active Medications Generic Name Dose Route Start Last Admin Trade Name Freq PRN Reason Stop Dose Admin Albuterol/Ipratropium 1 amp 06/16/19 12:00 Duoneb - NEB Q6H PRN SHORTNESS OF BREATH Amlodipine Besylate 10 mg 06/16/19 22:00 06/17/19 22:21 Norvasc - PO 10 mg HS MOLLY Administration Cefuroxime Axetil 500 mg 06/17/19 10:00 06/18/19 09:55 Ceftin - PO 500 mg BID MOLLY Administration Guaifenesin 5 ml 06/16/19 16:41 06/17/19 06:46 Diabetic Tussin Dm - PO 5 ml Q4H PRN Administration COUGH Insulin Aspart 1 vial 06/16/19 07:00 06/18/19 11:35 Novolog Vial Sliding Scale - SQ 2 units ACHS MOLLY Administration Protocol Losartan Potassium 50 mg 06/16/19 10:00 06/18/19 09:55 Cozaar - PO 50 mg DAILY MOLLY Administration CT brain and CT A/P results reviewed Microbiology 06/16/19 09:44 Sputum - Expectorated Gram Stain - Final 06/16/19 09:44 Sputum - Expectorated Sputum Culture - Final NORMAL RESPIRATORY KEITH 06/16/19 17:15 Sputum - Expectorated AFB Smear Concentration - Final 06/16/19 17:15 Sputum - Expectorated Mycobacterial Culture - Preliminary 06/16/19 05:25 Sputum - Expectorated AFB Smear Concentration - Final 06/16/19 05:25 Sputum - Expectorated Mycobacterial Culture - Preliminary 06/17/19 14:20 Sputum - Expectorated AFB Smear Concentration - Preliminary 06/17/19 14:20 Sputum - Expectorated Mycobacterial Culture - Preliminary 06/16/19 06:00 Blood - Peripheral Venous Blood Culture - Preliminary NO GROWTH OBTAINED AFTER 48 HOURS, INCUBATION TO CONTINUE FOR 3 DAYS. 06/16/19 06:00 Blood - Peripheral Venous Blood Culture - Preliminary NO GROWTH OBTAINED AFTER 48 HOURS, INCUBATION TO CONTINUE FOR 3 DAYS. 06/16/19 17:15 Urine For Antigen Detection Legionella Antigen - Final 06/16/19 17:15 Urine For Antigen Detection Streptococcus pneumoniae Antigen (M - Final ASSESSMENT/PLAN: 64 yom with PMhx of HTN, HLD, NIDDM, PAD s/p Left iliac vessel angioplasty/PCI , ex heavy smoker, Prostate Ca admitted with hemoptysis and found with lung mass and suspect post operative consolidation. -RLL Lung mass with hilar/mediastinal lymphadenopathy suspicious for malignancy -Brain mass with vasogenic edema, suspicious for metastatic lesion -R/o Post obstructive PNA -Hemoptysis -PAD s/p left iliac vessel angioplasty/PCI 02/2018 -NIDDM -HTN -HLD -Prostate Ca Plan: Clinical presentation and imaging not consistent with TB. Sputum AFB (prelim neg so far) and QFT sent. Discussed with hadley Inman for d/c on cefuroxime for 1 week. H/h stable. Pulmonary/thoracic surgery input noted. Also with solitary brain lesion suspicious for metastasis. Neurosurgery consulted, discussed with Dr. Underwood, resectable if deemed appropriate. Discussed with Dr. Guillory, lung lesion not resectable. Based on current imaging, recommend CT guided lung biopsy. Needs to be off plavix for 1 week for lung biopsy. Will await Dr. Syed's input before formulating a d/c plan. Oncology aware. PFTs/PET outpatient. ISS, hold metformin given recent contrast. resume januvia on dc Continue losartan/amlodipine DVTPPX SCDs , encourage ambulation Dispo plan for d/c home later today pending oncology input and plan of care. Discussed with nursing and patient/son/ at bedside in detail, all questions answered. Visit type - Emergency Visit Emergency Visit: Yes ED Registration Date: 06/16/19 Care time: The patient presented to the Emergency Department on the above date and was hospitalized for further evaluation of their emergent condition. - New Patient This patient is new to me today: No - Critical Care Critical Care patient: No - Discharge Referral Referred to [facility] Med P.C.: No
--- NOTE | 2019-06-18 16:34 | CONSULT ---
Consult - text type - Consultation Consultation Note: NEUROSURGERY CONSULTATION Segundo Higgins is a 64 year old [place] male who presented with recent onset hemoptysis. During evaluation, he was found to have a Right lower lobe pulmonary lesion with multiple lesions suspicious for hilar adenopathy. The patient has been taking Plavix for cardiac disease and biopsy of the Pulmonary lesion is pending. As part of his staging, Head CT with and without contrast was obtained and this reveals a 9.2mm x 9.2mm lesion in the Right frontal lobe just above the cingulate gyrus with some perilesional edema. On this exam, it appears to represent a solitary focus. The patient has a remote history of Prostate cancer which reportedly responded to treatment. The patient is neurologically nonfocal and this lesion represents an incidental finding during staging of his pulmonary process. I discussed this case with Dr. Guillory as well as Dr. Mejias. Plans are in place to discharge the patient to allow the Plavix to wear off and then biopsy the pulmonary lesion next week. There has also been suggestion of PET scanning to identify potential other foci of metastatic spread. The patient is relatively young and healthy otherwise and given a solitary lesion in the brain which is reasonably accessible for resection, consideration must be given to the role of craniotomy and microsurgical resection of the lesion. In general, patients with solitary metastatic foci that can be resected without undue morbidity, would benefit from surgical resection with subsequent radiation, if the patient's overall prognosis is poor, he would not be a candidate for surgery. Agree with plans in place to have Oncology evaluate the patient and to reserve a decision on the advisability of Neurosurgical treatment until afterwards. Will follow. Case discussed with patient and family (spouse and son). Contact information provided.
--- NOTE | 2019-06-18 19:21 | PN ---
Progress Note (short form) - Note Progress Note: Patient seen and examined Discussed with staff Underwent MRI of brain. Can have outpatient PET. Last took Plavix -06/16 Can decide re area to biopsy based upon PET CT with mediastinal involvement - at least stage III disease-- NON surgical candidate. Based upon path and extent of disease on PET, , can decide best approach to treatment both for TRA[employer] SERVICE [employer]CTOR and systemically. Have discussed all of the above with son at bedside.
[2019-06-18] MEDS ORDERED: INSULIN (NOVOLOG) ASPART 100 UNITS/ML 10ML VIAL ONE (21:16)
[2019-06-18] MEDS: amLODIPine BESYLATE 10 MG TABLET (FP) PO SCH (21:17)
[2019-06-19] MEDS: INSULIN SLIDING SCALE (NOVOLOG) 1 VIAL SQ SCH (06:10)
[2019-06-19 07:36] LABS: BASO % 0.4 % (0-2.0); HEMATOCRIT 30.4 % (35.4-49); HEMOGLOBIN 10.5 GM/dL (11.7-16.9); LYMPH % 19.2 % (8-40); MCHC 34.5 g/dl (32.0-35.9); MEAN CELL VOLUME 84.1 fl (80-96); MEAN PLT VOLUME 6.7 fl (7.5-11.1); MONO % 7.1 % (3.8-10.2); NEUT % 70.3 % (42.8-82.8); PLATELET COUNT 274 K/MM3 (134-434); RBC 3.61 M/mm3 (4.00-5.60); RDW 13.3 % (11.9-15.9); WHITE BLOOD COUNT 5.6 K/mm3 (4.0-10.0)
--- NOTE | 2019-06-19 07:55 | PN ---
Physical Exam: SUBJECTIVE: Patient seen and examined OBJECTIVE: Vital Signs Period Temp Pulse Resp BP Sys/De La Torre Pulse Ox Last 24 Hr 98.1 F-99.0 F 18-82 18-18 130-162/62-79 95-97 GENERAL: The patient is awake, alert, and fully oriented, in no acute distress. HEAD: Normal with no signs of trauma. EYES: PERRL, extraocular movements intact, sclera anicteric, conjunctiva clear. No ptosis. ENT: Ears normal, nares patent, oropharynx clear without exudates, moist mucous membranes. NECK: Trachea midline, full range of motion, supple. LUNGS: Breath sounds equal, clear to auscultation bilaterally, no wheezes, no crackles, no accessory muscle use. HEART: Regular rate and rhythm, S1, S2 without murmur, rub or gallop. ABDOMEN: Soft, nontender, nondistended, normoactive bowel sounds, no guarding, no rebound, no hepatosplenomegaly, no masses. EXTREMITIES: 2+ pulses, warm, well-perfused, no edema. NEUROLOGICAL: Cranial nerves II through XII grossly intact. Normal speech, gait not observed. PSYCH: Normal mood, normal affect. SKIN: Warm, dry, normal turgor, no rashes or lesions noted Laboratory Results - last 24 hr 06/18/19 06/18/19 06/18/19 06:50 06:50 11:34 WBC 7.0 RBC 3.99 L Hgb 11.6 L Hct 33.6 L MCV 84.1 MCH 29.0 MCHC 34.5 RDW 13.6 Plt Count 304 MPV 6.9 L Absolute Neuts (auto) 4.7 Neutrophils % 66.9 Lymphocytes % 23.7 D Monocytes % 6.8 Eosinophils % 2.2 Basophils % 0.4 Nucleated RBC % 0 POC Glucometer 182 Phosphorus 4.0 Magnesium 2.1 06/18/19 06/18/19 06/19/19 16:14 21:15 05:41 WBC RBC Hgb Hct MCV MCH MCHC RDW Plt Count MPV Absolute Neuts (auto) Neutrophils % Lymphocytes % Monocytes % Eosinophils % Basophils % Nucleated RBC % POC Glucometer 227 180 160 Phosphorus Magnesium Active Medications Generic Name Dose Route Start Last Admin Trade Name Freq PRN Reason Stop Dose Admin Albuterol/Ipratropium 1 amp 06/16/19 12:00 Duoneb - NEB Q6H PRN SHORTNESS OF BREATH Amlodipine Besylate 10 mg 06/16/19 22:00 06/18/19 21:17 Norvasc - PO 10 mg HS MOLLY Administration Cefuroxime Axetil 500 mg 06/17/19 10:00 06/18/19 21:20 Ceftin - PO 500 mg BID MOLLY Administration Guaifenesin 5 ml 06/16/19 16:41 06/17/19 06:46 Diabetic Tussin Dm - PO 5 ml Q4H PRN Administration COUGH Insulin Aspart 1 vial 06/16/19 07:00 06/19/19 06:10 Novolog Vial Sliding Scale - SQ 2 units ACHS MOLLY Administration Protocol Losartan Potassium 50 mg 06/16/19 10:00 06/18/19 09:55 Cozaar - PO 50 mg DAILY MOLLY Administration ASSESSMENT/PLAN: ATTENDING PHYSICIAN STATEMENT I saw and evaluated the patient. I reviewed the resident's note and discussed the case with the resident. I agree with the resident's findings and plan as documented. SUBJECTIVE: OBJECTIVE: ASSESSMENT AND PLAN:
[2019-06-19 08:06] LABS: BLOOD UREA NITROGEN 13.5 mg/dL (7-18); CREATININE 0.8 mg/dL (0.55-1.3); POTASSIUM 4.1 mmol/L (3.5-5.1)
[2019-06-19 09:48] VITALS: BP 150/78; PULSE 85; TEMP 97.6
[2019-06-19] MEDS: CEFUROXIME AXETIL 500 MG TABLET PO SCH (10:10)
[2019-06-19] MEDS: LOSARTAN POTASSIUM 50 MG TABLET (FP) PO SCH (10:10)
--- NOTE | 2019-06-19 10:33 | PN ---
Progress Note (short form) - Note Progress Note: Breathing feels overall better. Less hemoptysis. Again reported as dark and less in volume. No CP. Afebrile. MRI brain noted: (+) Met Intake & Output 06/16/19 06/17/19 06/18/19 06/19/19 23:59 23:59 23:59 23:59 Intake Total 200 800 600 Balance 200 800 600 Weight 155 lb 0.3 oz 155 lb Last Vital Signs Temp Pulse Resp BP Pulse Ox 97.6 F 85 18 150/78 95 06/19/19 09:47 06/19/19 09:47 06/19/19 09:47 06/19/19 09:47 06/19/19 09:00 Active Medications Albuterol/Ipratropium (Duoneb -) 1 amp NEB Q6H PRN PRN Reason: SHORTNESS OF BREATH Amlodipine Besylate (Norvasc -) 10 mg PO HS [facility] Last Admin: 06/18/19 21:17 Dose: 10 mg Cefuroxime Axetil (Ceftin -) 500 mg PO BID [facility] Last Admin: 06/19/19 10:10 Dose: 500 mg Guaifenesin (Diabetic Tussin Dm -) 5 ml PO Q4H PRN PRN Reason: COUGH Last Admin: 06/17/19 06:46 Dose: 5 ml Insulin Aspart (Novolog Vial Sliding Scale -) 1 vial SQ ACHS [facility]; Protocol Last Admin: 06/19/19 06:10 Dose: 2 units Losartan Potassium (Cozaar -) 50 mg PO DAILY [facility] Last Admin: 06/19/19 10:10 Dose: 50 mg Constitutional: Yes: NAD Eyes: Yes: Conjunctiva Clear, EOM Intact HENT: Yes: Atraumatic, Normocephalic Neck: Yes: Supple, Trachea Midline Cardiovascular: Yes: Regular Rate and Rhythm Respiratory: Yes: Diminished (decreased breath sounds at the bases) ...Clubbing: No Gastrointestinal: Yes: Normal Bowel Sounds, Soft. No: Tenderness Edema: No Neurological: Yes: Alert, Oriented Labs: Laboratory Results - last 24 hr 06/18/19 06/18/19 06/18/19 11:34 16:14 21:15 WBC RBC Hgb Hct MCV MCH MCHC RDW Plt Count MPV Absolute Neuts (auto) Neutrophils % Lymphocytes % Monocytes % Eosinophils % Basophils % Nucleated RBC % Sodium Potassium Chloride Carbon Dioxide Anion Gap BUN Creatinine Est GFR (CKD-EPI)AfAm Est GFR (CKD-EPI)NonAf POC Glucometer 182 227 180 Random Glucose Calcium 06/19/19 06/19/19 06/19/19 05:41 07:00 07:00 WBC 5.6 RBC 3.61 L Hgb 10.5 L Hct 30.4 L MCV 84.1 MCH 29.0 MCHC 34.5 RDW 13.3 Plt Count 274 MPV 6.7 L Absolute Neuts (auto) 3.9 Neutrophils % 70.3 Lymphocytes % 19.2 Monocytes % 7.1 Eosinophils % 3.0 Basophils % 0.4 Nucleated RBC % 0 Sodium 137 Potassium 4.1 Chloride 103 Carbon Dioxide 24 Anion Gap 10 BUN 13.5 Creatinine 0.8 Est GFR (CKD-EPI)AfAm 110.96 Est GFR (CKD-EPI)NonAf 95.74 POC Glucometer 160 Random Glucose 160 H Calcium 9.0 Problem List - Problems (1) Hemoptysis Code(s): R04.2 - HEMOPTYSIS (2) Lung mass Code(s): R91.8 - OTHER NONSPECIFIC ABNORMAL FINDING OF LUNG FIELD Assessment/Plan Metastatic CA:Lung most likely the primary Hemoptysis RLL Mass Post obstructive Pneumonia HTN DM Hyperlipidemia PAD - Will need PET scan for guide tissue biopsy - ABX per ID - quantify hemoptysis - Follow sputum AFB - D/C planning Dr Dominguez
--- NOTE | 2019-06-19 16:14 | DS ---
Physical Exam: SUBJECTIVE: Patient seen and examined doing well , cough has improved but still with some bloody streak. stable to dc home and follow up as out pt. OBJECTIVE: Vital Signs Period Temp Pulse Resp BP Sys/De La Torre Pulse Ox Last 24 Hr 97.6 F-98.3 F 18-85 18-18 140-150/70-78 95-95 PHYSICAL EXAM GENERAL: AAOx3 in NAD HEAD: NC/AT EYES: EOMI, Conjunctiva clear, sclera anicteric ENT: moist mucous membrane NECK: Supple, no JVD LUNGS: decrease breath sounds at the bases , right side rales , no wheezing no accessory muscle use HEART: NSR, normal s1, s2, no M/R/G ABDOMEN: Soft, ND, NT, +BS 4 Q, no CVA Tenderness LOWER EXTREMITIES: no edema, +2DP pulse, NEUROLOGICAL: No focal deficit. Normal speech. gait not observed. PSYCHIATRIC: Cooperative. Good eye contact. Appropriate mood and affect. SKIN: Warm, dry, LABS Laboratory Results - last 24 hr 06/18/19 06/18/19 06/19/19 16:14 21:15 05:41 WBC RBC Hgb Hct MCV MCH MCHC RDW Plt Count MPV Absolute Neuts (auto) Neutrophils % Lymphocytes % Monocytes % Eosinophils % Basophils % Nucleated RBC % Sodium Potassium Chloride Carbon Dioxide Anion Gap BUN Creatinine Est GFR (CKD-EPI)AfAm Est GFR (CKD-EPI)NonAf POC Glucometer 227 180 160 Random Glucose Calcium 06/19/19 06/19/19 07:00 07:00 WBC 5.6 RBC 3.61 L Hgb 10.5 L Hct 30.4 L MCV 84.1 MCH 29.0 MCHC 34.5 RDW 13.3 Plt Count 274 MPV 6.7 L Absolute Neuts (auto) 3.9 Neutrophils % 70.3 Lymphocytes % 19.2 Monocytes % 7.1 Eosinophils % 3.0 Basophils % 0.4 Nucleated RBC % 0 Sodium 137 Potassium 4.1 Chloride 103 Carbon Dioxide 24 Anion Gap 10 BUN 13.5 Creatinine 0.8 Est GFR (CKD-EPI)AfAm 110.96 Est GFR (CKD-EPI)NonAf 95.74 POC Glucometer Random Glucose 160 H Calcium 9.0 CBC, BMP 06/19/19 07:00 06/19/19 07:00 Microbiology 06/17/19 14:20 Sputum - Expectorated AFB Smear Concentration - Final 06/17/19 14:20 Sputum - Expectorated Mycobacterial Culture - Preliminary 06/16/19 06:00 Blood - Peripheral Venous Blood Culture - Preliminary NO GROWTH OBTAINED AFTER 72 HOURS, INCUBATION TO CONTINUE FOR 2 DAYS. 06/16/19 06:00 Blood - Peripheral Venous Blood Culture - Preliminary NO GROWTH OBTAINED AFTER 72 HOURS, INCUBATION TO CONTINUE FOR 2 DAYS. 06/16/19 09:44 Sputum - Expectorated Gram Stain - Final 06/16/19 09:44 Sputum - Expectorated Sputum Culture - Final NORMAL RESPIRATORY KEITH 06/16/19 17:15 Sputum - Expectorated AFB Smear Concentration - Final 06/16/19 17:15 Sputum - Expectorated Mycobacterial Culture - Preliminary 06/16/19 05:25 Sputum - Expectorated AFB Smear Concentration - Final 06/16/19 05:25 Sputum - Expectorated Mycobacterial Culture - Preliminary 06/16/19 17:15 Urine For Antigen Detection Legionella Antigen - Final 06/16/19 17:15 Urine For Antigen Detection Streptococcus pneumoniae Antigen (M - Final Brain mRI Impression. Approximately 11mm x 9.4 mm x 7.5 mm solid enhancing cortical lesion is observed in medial surface of the right cerebral hemisphere associated with medial cystic component with peripheral enhancement measuring 7.9 mm x 5.0 mm. Vasogenic edema in the right frontal lobe centrum semiovale is noted. On T2 gradient heme sensitive images hypointense foci are observed in the solid component of the lesion related to the hemosiderin deposits. No evidence of leptomeningeal enhancement. No evidence of additional infratentorial , or supratentorial enhancing lesion. Abdomen/pelvic CT IMPRESSION: Mild diffuse fatty infiltration of the liver and splenomegaly. No evidence of metastatic disease or acute pathology within the abdomen or pelvis. Please see above discussion. Chest CT with contrast IMPRESSION: 1. Large right lower lobe mass strongly suspicious for malignancy. 2. Extensive right hilar and mediastinal lymphadenopathy. 3. Postobstructive consolidation right lower lobe with additional small right upper lobe infiltrate. Clinical correlation and follow-up recommended. Please see above discussion. HOSPITAL COURSE: Date of Admission:06/16/19 Date of Discharge: 06/19/19 64 yom with PMhx of HTN, HLD, NIDDM, PAD s/p Left iliac vessel angioplasty/PCI , ex heavy smoker, Prostate Ca admitted with hemoptysis and found with lung mass and suspect post operative consolidation.RLL Lung mass with hilar/ mediastinal lymphadenopathy suspicious for malignancy and mets to the brain ,pt need to be off plavix for one week before decide for lung biposy , need PET scan as out pt , he needs to follow up [facility] Dr Ayala , Dr Dominguez after PET scan result to decide mass/cancer stage and possibility for surgery as dr Ayala thick it stage 3 . pt needs to be of metformin for the next 48-72 hours and drink alot of fluid as he received contrast. work up for TB come back negative. AFB X3 and quanteferon negative , pt is cleared BY ID Dr Lion for discharged he will be send home with ceftin 500 BID for more 3 days to cover for PNA.pt can resume all other home meds as before admission Minutes to complete discharge: 45 Discharge Summary Reason For Visit: PNEUMONIA Condition: Stable - Instructions Diet, Activity, Other Instructions: you presented to the hospital due to coughing blood due to new Lung mass founded on imaging you need to hold the blood thinner for one week for Lung biopsy Please take Ceftin 500 Mg twice daily for Pneumonia for 3 more days MEDICATIONS: Stop your plavix for now (You need to be off the medication for 1 week for biopsy) Antibiotic Cefuroxime 500 mg twice daily for 3 more days. Do not take your metformin on discharge as you may need studies with contrast after discharge. Continue other medications as before. INSTRUCTIONS: Please note that your newly diagnosed lung mass needs additional testing and close follow with your doctor, oncologist and independent trader to devise further plan. You will be needing CT scan of your belly, brain imaging, PET scan. Accordingly optimum site for biopsy will need to be determined by your doctors You will need to be off plavix for 7 days for biopsy. MRI shows mass in the brain as weel and you will follow up with Dr Jillian Alexander regarding that Please follow up with Dr Dillon, Michaela wright Dr within one week Please follow up with Dr Ayala the oncologist Doctor within one week Please follow up with your primary physician within one week You blood count has been stable in the hospital please repeat CBC within one week with your primary Please resume all home meds as before admission please return to the hospital if you develop fever , chills, chest pain, worsening cough with blood . Referrals: Benjamin Underwood MD, FAANS [Staff Physician] - 1 Month Kristi Nunez MD [Primary Care Provider] - 1 Week Jamal Ayala MD [Staff Physician] - 1 Week Michaela Dillon MD, MD [Staff Physician] - 1 Week Disposition: HOME - Home Medications Comprehensive Discharge Medication List: Ambulatory Orders Losartan Potassium [Cozaar -] 50 mg PO DAILY 03/03/18 Simvastatin 20 mg PO DAILY 03/03/18 Amlodipine Besylate [Norvasc -] 10 mg PO HS #30 tablet 03/09/18 Sitagliptin Phosphate [Januvia] 100 mg PO DAILY 06/16/19 Cefuroxime Axetil [Ceftin -] 500 mg PO BID #14 tablet 06/18/19 Guaifenesin/D-Methorphan Hb [Diabetic Tussin Dm -] 5 ml PO Q4H PRN #1 ml This patient is new to me today: No Emergency Visit: Yes ED Registration Date: 06/16/19 Care time: The patient presented to the Emergency Department on the above date and was hospitalized for further evaluation of their emergent condition. Critical Care patient: No - Discharge Referral Referred to [facility] Med P.C.: No ATTENDING PHYSICIAN STATEMENT I saw and evaluated the patient. I reviewed the resident's note and discussed the case with the resident. I agree with the resident's findings and plan as documented. SUBJECTIVE: OBJECTIVE: ASSESSMENT AND PLAN:
--- NOTE | 2019-06-21 16:13 | PATH ---
Cytology Non-Gynecological Report Patient Name: DEISI DAVIES Med. Rec. #: [id number] /Age/Gender: 1955 (Age: 64) / M Account: [id number] Location: [address] [place] [address] Taken: 06/17/2019 Received: 06/18/2019 Reported: 06/21/2019 Physicians: Lyle Mejias M.D. Specimen(s) Received SPUTUM Clinical History Former smoker, r/o malignancy Final Diagnosis SPUTUM FOR CYTOLOGY: ATYPICAL. VERY RARE CLUSTERS OF ATYPICAL CELLS WITH IRREGULAR NUCLEAR CONTOURS AND VACUOLATED CYTOPLASM IN A BACKGROUND OF FEW ALVEOLAR MACROPHAGES, MANY SQUAMOUS CELLS, NUMEROUS RED BLOOD CELLS, NEUTROPHILS AND RARE CILIATED CELLS PRESENT. Comment: The rare clusters are best seen in the cell block material. Degenerative changes present. Immunohistochemical stains performed at [place], [place] ([id number]) and interpreted at [facility] show the rare atypical cluster is positive for Cornelio-Ep4 and weakly for CD68, while negative for MOC-31 and TTF-1. The nature of the rare atypical cluster cannot be definitively ascertained in this material. Suggest clinical correlation. Positive and negative controls (internal if applicable) show appropriate results. Electronically Signed Ariela Costello M.D. Gross Description Approximately 25 cc of brown fluid received fixed in 50% alcohol. One cytofunnel prepared and Pap stained. One cellblock prepared.
--- NOTE | 2019-06-25 18:41 | PN ---
Teaching Attending Note ATTENDING PHYSICIAN STATEMENT I saw and evaluated the patient. I reviewed the resident's note and discussed the case with the resident. I agree with the resident's findings and plan as documented. SUBJECTIVE: OBJECTIVE: ASSESSMENT AND PLAN:
== END 2019-06-19 12:03 | disposition home or self-care (01) | DRG 180 ==
LOC: JER 01:07 → JERBED 03:15 → J5S 07:01
PROVIDERS: ADMIT Internal Medicine; ATTEND Internal Medicine
DX: C34.31 Malignant neoplasm of lower lobe, right bronchus or lung (principal); J18.9 Pneumonia, unspecified organism; G93.6 Cerebral edema; R04.2 Hemoptysis; I10 Essential (primary) hypertension; E78.5 Hyperlipidemia, unspecified; E11.9 Type 2 diabetes mellitus without complications; Z87.891 Personal history of nicotine dependence
CPT/HCPCS: 36415; 70470-TC; 70552-TC; 71250-TC; 71260-TC; 74177-TC; 80048; 80053; 82962; 83735; 84100; 85025; 85610; 85730; 86480; 87040; 87070; 87116; 87205; 87206; 87556; 87899; 88104; 88305-TC; 93005; 93010; 94010; 99283-25; A9579; Q9967

== ENCOUNTER 2019-07-22 21:36 | Inpatient (IN) | payer OTHER ==
--- NOTE | 2019-07-22 22:02 | PDOC ---
History of Present Illness - General Chief Complaint: Injury Stated Complaint: RIGHT ARM INJURY Time Seen by Provider: 07/22/19 22:02 Past History - Past Medical History Allergies/Adverse Reactions: Allergies Allergy/AdvReac Type Severity Reaction Status Date / Time Penicillins Allergy Mild Rash Verified 04/23/18 09:57 Home Medications: Ambulatory Orders Losartan Potassium [Cozaar -] 50 mg PO DAILY 03/03/18 Simvastatin 20 mg PO DAILY 03/03/18 Amlodipine Besylate [Norvasc -] 10 mg PO HS #30 tablet 03/09/18 Sitagliptin Phosphate [Januvia] 100 mg PO DAILY 06/16/19 Cefuroxime Axetil [Ceftin -] 500 mg PO BID #14 tablet 06/18/19 Guaifenesin/D-Methorphan Hb [Diabetic Tussin Dm -] 5 ml PO Q4H PRN #1 ml Anemia: No Asthma: No Cancer: Yes (Lung with mets to bone, brain) Cardiac Disorders: No CVA: No COPD: No CHF: No Dementia: No Diabetes: Yes (NIDDM) GI Disorders: No Disorders: No HTN: Yes Hypercholesterolemia: Yes Liver Disease: No Seizures: No Thyroid Disease: No - Suicide/Smoking/Psychosocial Hx Smoking History: Never smoked Have you smoked in the past 12 months: Yes Number of Cigarettes Smoked Daily: 10 If you are a former smoker, when did you quit?: one & 1/2 year 'Breaking Loose' booklet given: 03/03/18 Hx Alcohol Use: Yes (weekends) Drug/Substance Use Hx: No Substance Use Type: Alcohol Hx Substance Use Treatment: No *Physical Exam - Vital Signs Last Vital Signs Temp Pulse Resp BP Pulse Ox 97.8 F 70 18 132/90 100 07/22/19 21:50 07/22/19 21:50 07/22/19 21:50 07/22/19 21:50 07/22/19 21:50 *DC/Admit/Observation/Transfer - Referrals Referrals: Kristi Nunez MD [Primary Care Provider] - - Patient Instructions - Post Discharge Activity
--- NOTE | 2019-07-22 23:10 | PDOC ---
History of Present Illness - General Chief Complaint: Injury Stated Complaint: RIGHT ARM INJURY Time Seen by Provider: 07/22/19 22:02 - History of Present Illness Initial Comments: 07/22/19 23:10 64y/o M hx of Prostate Ca, Recent lung Ca diagnosis with metastasis to the bone , diabetes, HLD presenting with right upper arm pain. Approx. 8 hrs ago pt pushed himself up on his cane to a standing position. He was holding the cane in his right hand. He reports hearing a cracking sound and increased pain in his right upper arm. He reports the pain as 10/10 when he tries to move. He took 5mg of oxycodone today but that did not relieve the pain. He denies any , fevers, chills, loss of sensation in affected arm, falls or other trauma. 07/22/19 23:27 07/23/19 03:10 Past History - Past Medical History Allergies/Adverse Reactions: Allergies Allergy/AdvReac Type Severity Reaction Status Date / Time Penicillins Allergy Mild Rash Verified 04/23/18 09:57 Home Medications: Ambulatory Orders Losartan Potassium [Cozaar -] 50 mg PO DAILY 03/03/18 Simvastatin 20 mg PO DAILY 03/03/18 Amlodipine Besylate [Norvasc -] 10 mg PO HS #30 tablet 03/09/18 Sitagliptin Phosphate [Januvia] 100 mg PO DAILY 06/16/19 Cholecalciferol (Vitamin D3) [Vitamin D-400] 400 unit PO DAILY 07/23/19 Cyclobenzaprine HCl 10 mg PO BID 07/23/19 Oxycodone HCl 5 mg PO PRN 07/23/19 Tramadol HCl 50 mg PO BID 07/23/19 Anemia: No Asthma: No Cancer: Yes (Lung with mets to bone, brain) Cardiac Disorders: No CVA: No COPD: No CHF: No Dementia: No Diabetes: Yes (NIDDM) GI Disorders: No Disorders: No HTN: Yes Hypercholesterolemia: Yes Liver Disease: No Seizures: No Thyroid Disease: No - Suicide/Smoking/Psychosocial Hx Smoking History: Never smoked Have you smoked in the past 12 months: Yes Number of Cigarettes Smoked Daily: 10 If you are a former smoker, when did you quit?: one & 1/2 year 'Breaking Loose' booklet given: 03/03/18 Hx Alcohol Use: Yes (weekends) Drug/Substance Use Hx: No Substance Use Type: Alcohol Hx Substance Use Treatment: No Review of Systems - Review of Systems Constitutional: No: Chills, Fever HEENTM: No: Blurred Vision Respiratory: No: Shortness of Breath Cardiac (ROS): No: Chest Pain ABD/GI: No: Abdominal cramping : No: Burning, Dysuria Musculoskeletal: Yes: Back Pain, Muscle Pain Integumentary: No: Bruising, Change in Color Neurological: No: Headache, Numbness *Physical Exam - Vital Signs Last Vital Signs Temp Pulse Resp BP Pulse Ox 97.8 F 70 18 132/90 100 07/22/19 21:50 07/22/19 21:50 07/22/19 21:50 07/22/19 21:50 07/22/19 21:50 - Physical Exam General Appearance: Yes: Nourished, Appropriately Dressed, Apparent Distress HEENT: positive: EOMI, Normal Voice, Other (dry lips) Neck: positive: Trachea midline, Supple Respiratory/Chest: positive: Crackles. negative: Chest Tender, Respiratory Distress Cardiovascular: positive: Regular Rhythm, Regular Rate, S1, S2. negative: JVD, Murmur Vascular Pulses: Dorsalis-Pedis (R): 2+, Doralis-Pedis (L): 2+ Gastrointestinal/Abdominal: positive: Normal Bowel Sounds, Soft. negative: Protuberent, Distended, Guarding Extremity: positive: Normal Capillary Refill, Other (right arm held close to body. 2+ radial pulses. able to flex and extend wrist and move individual fingers. tenderness to palpation of right upper arm. bulging of right upper arm compared to left. Pt unable to lift arm without excruciating pain) Integumentary: positive: Dry, Warm Neurologic: positive: Fully Oriented, Alert, Normal Response ED Treatment Course - LABORATORY CBC & Chemistry Diagram: 07/22/19 23:34 07/22/19 23:34 Medical Decision Making - Medical Decision Making 07/22/19 23:31 64y/o M hx of Prostate Ca, Recent lung Ca diagnosis with metastasis to the bone and brain, diabetes, HLD presenting with right upper arm pain. Labs/Imaging/Meds AP view of Humerus X-ray shows midshaft oblique fracture of humerus with lateral upward displacement of the distal portion of humerus. pt has received 4mg of morphine so far so he could tolerate imaging. Pt received 4mg of morphine prior to imaging and 4mg of morphine afterwards for pain relief. Orthopedic service paged at 00:25 a.m. (Dr. Rakesh Franklin) Dr. Franklin Interventions: pt. placed in arriaza brace repeat x-ray of humerus ordered to access fracture after brace placement -equally recommended thoracic and lumbar ct for patients back pain complaints Dr. Natarajan (Oncologist, [place]) covering for patients oncologist Dr. Ira Tyosn recommends blood transfusion should pt be admitted. Hb/Hct. 07/05. Plan pt to be admitted Pt signed out to Dr. Vazquez 07/23/19 03:08 *DC/Admit/Observation/Transfer Diagnosis at time of Disposition: Humeral fracture, Pathologic fracture, Anemia, Intractable pain - Discharge Dispostion Condition at time of disposition: Stable - Referrals Referrals: Kristi Nunez MD [Primary Care Provider] - - Patient Instructions - Post Discharge Activity
[2019-07-22] MEDS ORDERED: morphine CARPU-JECT 2 MG/1 ML DISP.SYRIN IVPUSH ONE ×3 (23:18→23:46)
--- NOTE | 2019-07-22 23:27 | PDOC ---
Attending Attestation - Resident Resident Name: Aleksandra Negron - ED Attending Attestation I have performed the following: I have examined & evaluated the patient, The case was reviewed & discussed with the resident, I agree w/resident's findings & plan, Exceptions are as noted - HPI HPI: 07/22/19 23:26 64-year-old male brought in by ambulance after sustaining severe right arm pain and deformity. He pushed himself up from a seated position and had severe sudden right arm pain and deformity. He has not been able to lift his arm since that time. - Physicial Exam PE: 07/22/19 23:27 64-year-old male presents with right arm pain and deformity, good ulnar, radial pulses, there is a bulging deformity midshaft of the right humerus head no scalp lacerations, no hematomas. dry mucus membranes Neck supple Lungs scattered rhonchi cvs [id number] abd no rebound skin warm and dry neuro alert,conversant 07/23/19 01:23 07/23/19 01:58 - Medical Decision Making 07/22/19 23:29 64-year-old male with a history of prostate cancer who was admitted last month for hemoptysis and found to have a right lower lobe mass mediastinal involvement and an enhancing lesion on his brain MRI He pushed himself up from a seated position and had sudden severe right arm pain and deformity 07/22/19 23:32 past medical history also includes hypertension, hyperlipidemia, non-insulin- dependent diabetes, peripheral arterial disease, status post left iliac vessel angioplasty,PCI, 02/2018 , smoker, and prostate cancer pt cleared for TB ,there were AFB 3 Negative and QuantiFERON negative. Patient cleared by IDDr. Lion 07/23/19 01:13 pt given morphine and taken to radiology and right humerus does have a displaced mid shaft fracture labs reveal hct=23 and hbg=8.0 this is lower than his normal Plan ORTHO CONSULT, Splinting and sling, pain control 07/23/19 01:24 07/23/19 01:[address] Natarajan who is the covering oncologist for this patient and the anemia can be followed as an outpatient as long as this patient doesn't require admission tonight the orthopedist Dr Franklin is seeing the pt bedside currently 07/23/19 02:32 now complaining of thoracic and lumbar back pain which is new. Patient is right hand dominant and will have difficulty using his cane now that his right arm is fractured. plan stool hemoccult, ct of lumbar and thoracic spine,admission for pain control, blood transfusion 07/23/19 02:53
[2019-07-22] MEDS ORDERED: MORPHINE SULFATE 2 MG/ML VIAL ONE ×2 (23:30→23:46)
[2019-07-22 23:52] LABS: BASO % 0.3 % (0-2.0); EOS % 0.2 % (0-4.5); MCH 28.2 pg (25.7-33.7); MCHC 34.9 g/dl (32.0-35.9); MEAN CELL VOLUME 80.8 fl (80-96); MEAN PLT VOLUME 6.5 fl (7.5-11.1); MONO % 5.3 % (3.8-10.2); NEUT % 85.2 % (42.8-82.8); PLATELET COUNT 276 K/MM3 (134-434); RBC 2.84 M/mm3 (4.00-5.60); RDW 15.7 % (11.9-15.9); WHITE BLOOD COUNT 7.7 K/mm3 (4.0-10.0)
[2019-07-23 00:04] LABS: INR 1.19 (0.83-1.09); PROTHROMBIN TIME (PATIENT) 14.1 SEC (9.7-13.0)
[2019-07-23 00:06] LABS: ACTIVATED PTT 33.2 SECONDS (25.2-36.5)
[2019-07-23 00:14] LABS: ALBUMIN 3.1 g/dl (3.4-5.0); BILIRUBIN,TOTAL 1.1 mg/dL (0.2-1); BLOOD UREA NITROGEN 13.3 mg/dL (7-18); CALCIUM 9.7 mg/dL (8.5-10.1); CREATININE 0.7 mg/dL (0.55-1.3); POTASSIUM 4.1 mmol/L (3.5-5.1); TOT PROT 6.9 g/dl (6.4-8.2)
[2019-07-23] MEDS ORDERED: morphine CARPU-JECT 4 MG/1 ML DISP.SYRIN IVPUSH ONE (01:08)
[2019-07-23] MEDS ORDERED: morphine SULFATE 4 MG/ML VIAL ONE (01:20)
--- NOTE | 2019-07-23 02:22 | CONSULT ---
Consult - text type - Consultation Consultation Note: ORTHOPEDIC SURGERY CONSULTATION NOTE Department of Orthopedic Surgery HISTORY OF PRESENT ILLNESS Mr. Manzo is a 64 year old right hand dominant male with hx of Prostate Ca, Recent Stage IV Lung Ca diagnosis with metastasis to the bone, diabetes, HLD presenting with right upper arm pain who presents to [facility] ER with a right mid- distal third shaft fracture. The orthopedic service was consulted for a pathologic right humerus fracture. Yesterday, the patient states he pushed himself up on his cane to a standing position. The patient notes significant pain in his right arm. Denies any other injuries. Denies numbness, tingling or other constitutional complaints. Denies tobacco use, drug use, alcohol abuse. The patient lives with family and uses a cane as assistive devices at baseline. Denies any urinary / stool incontinence, denies saddle parasthesias. FAMILY HISTORY non-contributory REVIEW OF SYMPTOMS A twelve-point review of systems was performed and was negative except as noted in HPI. PHYSICAL EXAM Constitutional: Alert and oriented to person, place, and time. Appears well- developed and well-nourished. No acute distress, appropriate mood and affect. Right Upper Extremity: Skin warm, dry, and intact; no lesions, rashes or ulcers noted. Muscle mass equal and symmetric to contralateral side. No atrophy noted. No masses or effusions noted. Tender to palpation at midshaft humerus; + deformity of the humerus with mild swelling; nontender throughout rest of extremity. Full passive and active ROM of the wrist, elbow, hand, and fingers, free from pain. LROM of the arm secondary to pain; Joints stable with no pathologic laxity. M/R/U/MSK/AX motor intact; SILT distally; 2+ radial pulses; Cap refill brisk. Tone and reflexes normal. Left Upper Extremity: Skin warm, dry, and intact; no lesions, rashes or ulcers noted. Muscle mass equal and symmetric to contralateral side. No atrophy noted. No masses or effusions noted. No tenderness to palpation all joints; nontender throughout rest of extremity. Full passive and active ROM, free from pain. Joints stable with no pathologic laxity. M/R/U/MSK/AX motor intact; SILT distally; 2+ radial pulses; Cap refill brisk. Tone and reflexes normal. Right Lower Extremity: Skin warm, dry, and intact; no lesions, rashes or ulcers noted. Muscle mass equal and symmetric to contralateral side. No atrophy noted. No masses or effusions noted. Negative Log roll, Able to SLR; nontender throughout rest of extremity. No cords or calf tenderness No significant calf/ankle edema. Full passive and active ROM, free from pain. Joints stable with no pathologic laxity. EHL/TA/GS motor intact; SILT distally; 2+ DP pulses; Cap refill brisk. Tone and reflexes normal. Left Lower Extremity: Skin warm, dry, and intact; no lesions, rashes or ulcers noted. Muscle mass equal and symmetric to contralateral side. No atrophy noted. No masses or effusions noted. Negative Log roll, Able to SLR; nontender throughout rest of extremity. No cords or calf tenderness No significant calf/ankle edema. Full passive and active ROM, free from pain. Joints stable with no pathologic laxity. EHL/TA/GS motor intact; SILT distally; 2+ DP pulses; Cap refill brisk. Tone and reflexes normal. Back: No step offs; Skin intact clean/dry; + TTP over the thoracolumbar SP along with paraspinal muscle pain. Past Medical History Cardio/Vascular HTN,Hyperlipdemia Endocrine Diabetes Mellitus Social History Smoking history Never smoked Aproximately how many 10 cigarettes per day If you are a former smoker, one & 1/2 year when did you quit? Hx Alcohol Use Yes: weekends Allergies Allergy/AdvReac Type Severity Reaction Status Date / Time Penicillins Allergy Mild Rash Verified 04/23/18 09:57 Vital Signs (last) Temp Pulse Resp BP Pulse Ox 97.9 F 96 H 20 148/69 95 07/22/19 21:50 07/22/19 21:50 07/22/19 21:50 07/22/19 21:50 07/22/19 21:50 Intake and Output 07/21/19 07/22/19 07/23/19 23:59 23:59 23:59 Other: Voiding Method Toilet Weight 150 lb Height 5 ft 8 in Body Mass Index (BMI) 22.8 Laboratory 07/22/19 23:34 07/22/19 23:34 PT with INR 14.10 SEC (9.7-13.0) H 07/22/19 23:34 PTT (Actin FS) 33.2 SECONDS (25.2-36.5) 07/22/19 23:34 IMAGING I personally reviewed right humerus radiographs; They demonstrate a pathologic mid - distal third humerus fracture, displaced. Post-functional brace application radiographs of the right humerus demonstrate acceptable positioning of right humerus pathologic fracture. Post-bracing exam unchanged for RUE. ASSESSMENT AND PLAN Mr. Manzo is a 64 year old male presenting status with a right sided midshaft- distal third pathologic humerus fracture. We have reviewed the imaging and clinical findings in detail, as well as their potential implications. After appropriate informed discussion, a slight reduction maneuver was performed, and the patient was placed in a well-padded arriaza functional brace. Patient was instructed regarding: non weight bearing on fractured side. signs and symptoms of compartment syndrome and need to seek immediate care should new onset numbness, tingling, or significantly increasing pain occur. ice to RUE. keeping the splint clean and dry. avoiding NSAID medications. - no further orthopedic surgical intervention at this time. patient will stay in arriaza brace for next several weeks, with X-rays weekly for the first 3 weeks, and every 2-3 weeks after that until fracture healed. I discussed possible surgical options with the family if the patient develops non-union, or if further displacement of the fracture occurs, but patient and family do not want surgical intervention at this time. All questions were answered. Thank you for involving our team in the care of this patient. Please have patient follow up in our office in 1 week . He will need X-rays taken at the hospital of his right humerus the day before his office visit.
--- NOTE | 2019-07-23 02:43 | PDOC ---
ED Treatment Course - LABORATORY CBC & Chemistry Diagram: 07/25/19 06:35 07/25/19 06:35 - ADDITIONAL ORDERS Additional order review: Laboratory Results 07/22/19 07/22/19 07/22/19 23:34 23:34 23:34 PT with INR 14.10 H INR 1.19 H PTT (Actin FS) 33.2 Sodium 136 Potassium 4.1 Chloride 98 Carbon Dioxide 23 Anion Gap 16 BUN 13.3 Creatinine 0.7 Est GFR (CKD-EPI)AfAm 117.22 Est GFR (CKD-EPI)NonAf 101.14 Random Glucose 160 H Calcium 9.7 Total Bilirubin 1.1 H AST 36 ALT 23 Alkaline Phosphatase 135 H Total Protein 6.9 Albumin 3.1 L Blood Type O POSITIVE Antibody Screen Negative 07/22/19 23:34 RBC 2.84 L MCV 80.8 MCHC 34.9 RDW 15.7 D MPV 6.5 L Neutrophils % 85.2 H D Lymphocytes % 9.0 D Monocytes % 5.3 Eosinophils % 0.2 D Basophils % 0.3 - Medications Given in the ED: ED Medications Discontinued Medications Generic Name Dose Route Start Last Admin Trade Name Freq PRN Reason Stop Dose Admin Morphine Sulfate 2 mg 07/22/19 23:18 07/22/19 23:33 Morphine Injection - IVPUSH 07/22/19 23:19 2 mg ONCE ONE Administration Morphine Sulfate 2 mg 07/22/19 23:44 07/22/19 23:49 Morphine Injection - IVPUSH 07/22/19 23:45 2 mg ONCE ONE Administration Morphine Sulfate 2 mg 07/22/19 23:46 07/23/19 01:08 Morphine Injection - IVPUSH 07/22/19 23:47 Not Given ONCE ONE Morphine Sulfate 4 mg 07/23/19 01:08 07/23/19 01:24 Morphine Injection - IVPUSH 07/23/19 01:09 4 mg ONCE ONE Administration Medical Decision Making - Medical Decision Making 64 year old male with PMH prostate cancer with metasisis to the lung and brain presented to ED for right arm pain after raising himself up from the cane. Initial Vital Signs Temp Pulse Resp BP Pulse Ox 97.8 F 96 H 18 148/69 100 07/22/19 21:50 07/22/19 21:50 07/22/19 21:50 07/22/19 21:50 07/22/19 21:50 Pt had humeral spiral fracture of which Dr. Franklin placed in a brace, recommended outpatient treatment. Pt is very generally weak, unable to tolerate pain control with morphine 8 mg IV total given. Pt's oncologist was called by prior resident, recommended blood transfusion for Hgb 8. Sign out given to admitting team, pt to be admitted under Dr. Baptiste' service. Pending admission. CT thoracic spine report: Name: DEISI DAVIES DEPARTMENT OF RADIOLOGY Phys: Aleksandra Alvarado RESIDENT : 1955 Age: 64 Sex: M [facility] Acct: [id number] Loc: [address] Exam Date: 07/23/19 Status: [place] [address] Unit Number: [id number] ACCESSION # : [id number] EXAM#: TYPE/EXAM: RESULT: [id number] CT/THORACIC SPINE CT W/O CONTRAST Back pain Thoracic spine CT C. Axial images were obtained with coronal , sagittal reconstruction. C7. Osteolytic changes in C7 vertebral body. T1. Osteolytic lesion in the superior aspect of T1 vertebral body. Osteolytic changes in the spinous process of T1. T5. Osteolytic changes in the superior aspect of T5 vertebral body, with mild pathological compression deformity of the superior endplate. T5. Questionable osteolytic changes. T6. Osteolytic lesion T6 vertebral body. T10, T11. Suggestion of osteolytic changes in the posterior aspect of the vertebral bodies.. The intraspinal contents cannot be adequately right of the beam hardening artifacts. Right pleural effusion. Mediastinal, hilar adenopathy. Right lung mass. Impression. Osteolytic lesion are noted in multiple thoracic vertebral bodies, spinous process of T1 - metastatic disease. Right pleural effusion. Hilar, mediastinal adenopathy. Right lung mass. Reported By: Daniel Patel MD 07/23/[address] lumbar spine report: Name: DEISI DAVIES DEPARTMENT OF RADIOLOGY Phys: Aleksandra Calderon RESIDENT : 1955 Age: 64 Sex: M [facility] Acct: [id number] Loc: [address] Exam Date: 07/23/19 Status: [place] [address] Unit Number: [id number] ACCESSION # : [id number] EXAM#: TYPE/EXAM: RESULT: [id number] CT/LUMBAR SPINE CT W/O CONTRAST Reason for the study. Back pain. History of malignancy. CT scan of lumbosacral spine noncontrast. Direct axial images were obtained from T11-T12 through the upper sacrum. The study was supplemented with computer generated sagittal and coronal reconstruction images. Findings. Straightening of lumbosacral spine. T11-T12. Questionable osteolytic lesion in the medial aspect of the right 11th rib. Ossification of the right paracentral anterior paraspinal soft tissues. Posterior annular calcifications. Facet joint arthropathy. T12-L1. Midline posterior annular calcifications. Right lateral marginal osteophytes. L1-L2 Loss of disc space height. Posterior annular calcifications. Facet joint arthropathy. L2-L3. Midline posterior annular calcifications deforming the ventral surface of the thecal sac. . Facet joint arthropathy. Osteolytic changes are noted in the superior aspect of L3 vertebral body with pathological compression deformity of the superior endplate of L3. L3-L4. Osteolytic lesions noted in the inferior aspect of L3 with pathological disruption but inferior endplate. Degenerative anterior osteophytes. L4-L5. Osteolytic lesions are noted in L4 vertebral body.. Facet joint arthropathy. Osteolytic lesion - tip of the spinous process of L4 L5-S1. Marked osteolytic changes are noted in L5 vertebral body associated with mild compression deformity of the superior endplate of L5. Osteolytic lesion noted in the spinous process of L5. Osteolytic changes are observed in the left posterior lamina of S1, spinous process of S1 with left posterior paraspinal mass.. The intraspinal contents cannot be adequately right of the beam Vincent artifacts. Markedly distended urinary bladder distended urinary bladder. Impression. Metastatic disease, osteolytic lesions in the bodies of vertebral bodies, spinous processes as described the body of report with pathological compression deformity of the superior endplate of L3 , superior endplate of L5. Osteolytic lesion is noted in the inferior aspect of L3 with pathological disruption but inferior endplate. Reported By: Daniel Patel MD 07/23/19 0815 *DC/Admit/Observation/Transfer Diagnosis at time of Disposition: Humeral fracture, Pathologic fracture, Anemia, Intractable pain - Discharge Dispostion Condition at time of disposition: Stable Decision to Admit order: Yes - Referrals - Patient Instructions - Post Discharge Activity
--- NOTE | 2019-07-23 03:23 | HP ---
CHIEF COMPLAINT: acute fracture and anemia PCP: Dr. Enrique Berry HISTORY OF PRESENT ILLNESS: Segundo Higgins is a 64 year old male with a past medical history of prostate cancer, recent diagnosis of stage IV lung cancer with metastatis to bone (known via PET scan), diabetes, hyperlipidemia who presents after having R upper arm pain. The patient had leaned on his cane yesterday and felt a sharp pain in his arm along with a cracking sound. He stated that he was still able to move his arm but had severe 10/10 pain associated with movement. He stated he has some tingling in his arm but denied focal weakness, numbness, coldness in the arm, color changes. He states that he also has severe back pain especially when walking. At home he ambulates slowly with a cane. He denies any other acute complaints of chest pain, shortness of breath, abdominal pain, nausea, vomiting , fever, chills, lower extremity weakness, numbness, tingling, urinary hesitancy , frequency, dysuria, incontinence. In the ED, the patient had a R upper extremity x-ray done which showed a pathologic mid-distal third humerus fracture. He was seen by Dr. Franklin who recommended ice, splint, avoiding weight bearing, avoiding NSAIDs, monitoring for changes to the extremity suggestive of compartment syndrome, and adequate pain control. Additionally, the patient's oncologist was reached and recommenced that while in the hospital to get 1 unit of PRBCs. Patient and family are currently in discuss with oncologist about treatment for his cancer. Oncologist Dr. Ira Tyson (Dr. Natarajan covering and spoken to) by ED. ER course was notable for: (1) x-rays as above (2) Hgb 8.0 (3) Given a total of 8mg of morphine for pain control with moderate success Recent Travel: denies PAST MEDICAL HISTORY: as above PAST SURGICAL HISTORY: L wrist fracture repair Social History: Smoking: former Alcohol: social Drugs: denies Family History: denies significant family history Allergies Penicillins Allergy (Mild, Verified 04/23/18 09:57) Rash HOME MEDICATIONS: Home Medications Medication Instructions Recorded Losartan Potassium [Cozaar -] 50 mg PO DAILY 03/03/18 Simvastatin 20 mg PO DAILY 03/03/18 Amlodipine Besylate [Norvasc -] 10 mg PO HS #30 tablet 03/09/18 Sitagliptin Phosphate [Januvia] 100 mg PO DAILY 06/16/19 Cholecalciferol (Vitamin D3) 400 unit PO DAILY 07/23/19 [Vitamin D-400] Cyclobenzaprine HCl 10 mg PO BID 07/23/19 Oxycodone HCl 5 mg PO PRN 07/23/19 Tramadol HCl 50 mg PO BID 07/23/19 REVIEW OF SYSTEMS CONSTITUTIONAL: Absent: fever, chills, diaphoresis, generalized weakness, malaise, loss of appetite, weight change HEENT: Absent: rhinorrhea, nasal congestion, throat pain, throat swelling, difficulty swallowing, CARDIOVASCULAR: Absent: chest pain, syncope, palpitations, irregular heart rate, lightheadedness , peripheral edema RESPIRATORY: Absent: cough, shortness of breath, dyspnea with exertion, orthopnea, wheezing, GASTROINTESTINAL: Absent: abdominal pain, abdominal distension, nausea, vomiting, diarrhea, constipation, GENITOURINARY: Absent: dysuria, frequency, urgency, hesitancy, hematuria, flank pain, MUSCULOSKELETAL: back pain, R upper extremity pain Absent: myalgia, arthralgia, joint swelling, , neck pain SKIN: Absent: rash, itching, pallor HEMATOLOGIC/IMMUNOLOGIC: Absent: easy bleeding, easy bruising, lymphadenopathy, frequent infections ENDOCRINE: Absent: unexplained weight gain, unexplained weight loss, heat intolerance, cold intolerance NEUROLOGIC: tingling in R upper extremity Absent: headache, focal weakness, dizziness, unsteady gait, seizure, mental status changes, bladder or bowel incontinence PSYCHIATRIC: Absent: anxiety, depression, suicidal or homicidal ideation, hallucinations. PHYSICAL EXAMINATION Vital Signs - 24 hr 07/22/19 21:50 Temperature 97.9 F Pulse Rate 70 Pulse Rate [ 96 H Right Radial] Respiratory 20 Rate Blood Pressure 132/90 Blood Pressure 148/69 [Left Arm] O2 Sat by Pulse 95 Oximetry (%) GENERAL: Awake, alert, and fully oriented, in mild acute distress. HEAD: Normal with no signs of trauma. EYES: Pupils equal, round, extraocular movements intact, sclera anicteric, conjunctiva clear. EARS, NOSE, THROAT: Oropharynx clear without exudates. Moist mucous membranes. NECK: Normal range of motion, no JVD. LUNGS: Breath sounds equal, clear to auscultation bilaterally. No wheezes, and no crackles. No accessory muscle use. HEART: Regular rate and rhythm, normal S1 and S2 without murmur, rub or gallop. ABDOMEN: Soft, nontender, not distended, normoactive bowel sounds, no guarding, no rebound, no masses. MUSCULOSKELETAL: R upper extremity in sling with limited range of motion secondary to sling and painful to palpation. Normal range of motion in other joints. UPPER EXTREMITIES: 2+ pulses, warm, well-perfused. No cyanosis. No clubbing. No peripheral edema. LOWER EXTREMITIES: 2+ pulses, warm, well-perfused. No calf tenderness. No peripheral edema. NEUROLOGICAL: Cranial nerves II-XII intact. 5/5 muscle strength in bilateral lower extremities. 5/5 muscle strength in L upper extremity. 5/5 muscle strength in distal R upper extremity to grasp and wrist flexion and extension. Unable to test proximal extremity secondary to arm in immobilizing sling. Sensation intact to gross touch throughout. PSYCHIATRIC: Cooperative. Good eye contact. Appropriate mood and affect. SKIN: Warm, dry, normal turgor, no rashes or lesions noted, normal capillary refill. Laboratory Results - last 24 hr 07/22/19 07/22/19 07/22/19 23:34 23:34 23:34 WBC 7.7 RBC 2.84 L Hgb 8.0 L Hct 23.0 L D MCV 80.8 MCH 28.2 MCHC 34.9 RDW 15.7 D Plt Count 276 MPV 6.5 L Absolute Neuts (auto) 6.5 Neutrophils % 85.2 H D Lymphocytes % 9.0 D Monocytes % 5.3 Eosinophils % 0.2 D Basophils % 0.3 Nucleated RBC % 0 PT with INR 14.10 H INR 1.19 H PTT (Actin FS) 33.2 Sodium 136 Potassium 4.1 Chloride 98 Carbon Dioxide 23 Anion Gap 16 BUN 13.3 Creatinine 0.7 Est GFR (CKD-EPI)AfAm 117.22 Est GFR (CKD-EPI)NonAf 101.14 Random Glucose 160 H Calcium 9.7 Total Bilirubin 1.1 H AST 36 ALT 23 Alkaline Phosphatase 135 H Total Protein 6.9 Albumin 3.1 L Blood Type Antibody Screen 07/22/19 23:34 WBC RBC Hgb Hct MCV MCH MCHC RDW Plt Count MPV Absolute Neuts (auto) Neutrophils % Lymphocytes % Monocytes % Eosinophils % Basophils % Nucleated RBC % PT with INR INR PTT (Actin FS) Sodium Potassium Chloride Carbon Dioxide Anion Gap BUN Creatinine Est GFR (CKD-EPI)AfAm Est GFR (CKD-EPI)NonAf Random Glucose Calcium Total Bilirubin AST ALT Alkaline Phosphatase Total Protein Albumin Blood Type O POSITIVE Antibody Screen Negative ASSESSMENT/PLAN: Segundo Higgins is a 64 year old male with a past medical history of prostate cancer, recent diagnosis of stage IV lung cancer with metastatis to bone (known via PET scan), diabetes, hyperlipidemia admitted for adequate pain control from a recent R humeral fracture and blood transfusion. R humerus fracture Anemia HLD DM HTN Elevated Alk phos and T bili Back Pain R humerus fracture - x-rays as above - continue to immobilize in sling - follow recommendations of ortho, Dr. Franklin, recs appreciated - ice, avoid weight bearing, avoid NSAIDs - to follow up in outpatient clinic for continued management - pain medication as per order set, oxycodone - standing oxycontin 10mg q12h, titrate as necessary - frequent pulse checks and neurochecks to make sure no compartment syndrome - will need x-ray before discharge - pain management upon discharge Anemia - currently does not have any acute bleeding - no current indication for transfusion - can reassess with further laboratory work - will need records obtained from oncologist at [facility] - continue patient's home meds once reconciled DM - BGM - ISS HTN - patient's meds list shows HTN meds, confirm with pharmacy and restart Elevated Alk phos and T bili - RUQ U/s to assess for any acute pathology, no current complaints from patient - direct bili Back Pain - imaging to assess for further lesions FEN - no standing fluids - continue to monitor electrolytes and replete as necessary - diabetic diet Prophylaxis - Lovenox 40 units subq dialy Code - full code KWAN SUMNER DO - PGY-1 Visit type - Emergency Visit Emergency Visit: Yes ED Registration Date: 07/23/19 Care time: The patient presented to the Emergency Department on the above date and was hospitalized for further evaluation of their emergent condition. - New Patient This patient is new to me today: Yes Date on this admission: 07/23/19 - Critical Care Critical Care patient: No
[2019-07-23] MEDS ORDERED: NALOXONE HCL 0.4 MG/ML VIAL IVPUSH PRN (03:41)
[2019-07-23] MEDS ORDERED: MORPHINE SULFATE 2 MG/ML VIAL IVPUSH PRN (03:44)
--- NOTE | 2019-07-23 04:39 | PN ---
Teaching Attending Note Name of Resident: Christian Daniel ATTENDING PHYSICIAN STATEMENT I saw and evaluated the patient. chart, data reviewed. I reviewed the resident's note and discussed the case with the resident. I agree with the resident's findings and plan as documented. SUBJECTIVE: 64 year man w/ prostate cancer, recent diagnosis of stage IV lung cancer w/ bony mets (known via PET scan)-scheduled to receive tx at [facility] , DM was attempting to stand earlier from chair with cane and felt snap of right arm, significant pain. Brought to outpatient clinic and given oxycodone and muscle relaxant without much relief. OBJECTIVE: Last Vital Signs Temp Pulse Resp BP Pulse Ox 97.9 F 96 H 20 148/69 95 07/22/19 21:50 07/22/19 21:50 07/22/19 21:50 07/22/19 21:50 07/22/19 21:50 gen -drowsy, nad heent- at, nc cv-s1+s2+rrr chest -clear b/l abd- soft, nt, bs+ ( ext - right upper ext in brace, sensation of hand and fingers intact, no cyanosis, moves fingers, radial, ulnar pulses 2+ Abnormal Lab Results 07/22/19 07/22/19 07/22/19 23:34 23:34 23:34 RBC 2.84 L Hgb 8.0 L Hct 23.0 L D MPV 6.5 L Neutrophils % 85.2 H D PT with INR 14.10 H INR 1.19 H Random Glucose 160 H Total Bilirubin 1.1 H Alkaline Phosphatase 135 H Albumin 3.1 L Imaging reviewed ASSESSMENT AND PLAN: #right mid-distal third shaft fracture evaluated by orthopedic surgery. No evidence of neuro or vascular compromise on my exam. -med/surg -as per ortho recs, no surgical intervention at this time -maintain arriaza brace -check pulses, sensation of right arm periodically -weekly x-ray as per ortho recs -pain management - PO morphine PO ER with IVP for breakthrough pain -follow further ortho recs -dvt ppx- lovenox ppx dose #Lung cancer/prostate cancer- would obtain outside records from [facility] -pain control -pt is full code at this time -hypoalbuminemia #anemia- normocytic, prob of chronic disease, likely related to malignancies #DM -diabetic diet -novolog sliding scale -a1c
[2019-07-23] MEDS ORDERED: MORPHINE SULFATE 2 MG/ML VIAL ONE (06:00)
[2019-07-23] MEDS: INSULIN SLIDING SCALE (NOVOLOG) 1 VIAL SQ SCH ×3 (07:48→16:26)
[2019-07-23] MEDS ORDERED: DOCUSATE SODIUM 100 MG CAPSULE (FP) PO ONE (09:02)
[2019-07-23] MEDS ORDERED: LOSARTAN POTASSIUM 50 MG TABLET (FP) ONE (09:02)
[2019-07-23] MEDS ORDERED: ENOXAPARIN NA (PORCINE) 40 MG/0.4 ML DISP.SYRIN SQ ONE (09:04)
[2019-07-23] MEDS ORDERED: oxyCODONE HCL 10 MG SUSTAINED ACTING TABLET ONE ×2 (09:04→13:15)
[2019-07-23] MEDS: ENOXAPARIN NA (PORCINE) 40 MG/0.4 ML DISP.SYRIN SQ SCH (09:14)
[2019-07-23] MEDS: LOSARTAN POTASSIUM 50 MG TABLET (FP) PO SCH (09:14)
[2019-07-23] MEDS: CYCLOBENZAPRINE HCL 10 MG TABLET (FP) PO SCH ×2 (09:14→21:29)
[2019-07-23] MEDS: DOCUSATE SODIUM 100 MG CAPSULE (FP) PO SCH ×2 (09:14→21:29)
[2019-07-23] MEDS ORDERED: ATORVASTATIN CA 10 MG TABLET (FP) ONE (09:17)
[2019-07-23] MEDS: ATORVASTATIN CA 10 MG TABLET (FP) PO SCH (09:20)
[2019-07-23 09:37] LABS: CREATININE 0.8 mg/dL (0.55-1.3); MAGNESIUM 1.6 mg/dL (1.8-2.4); PHOSPHOROUS 5.1 mg/dL (2.5-4.9); POTASSIUM 4.1 mmol/L (3.5-5.1)
[2019-07-23 09:39] LABS: BASO % 0.4 % (0-2.0); EOS % 0.4 % (0-4.5); HEMATOCRIT 23.6 % (35.4-49); HEMOGLOBIN 8.2 GM/dL (11.7-16.9); LYMPH % 13.6 % (8-40); MCH 28.1 pg (25.7-33.7); MCHC 34.6 g/dl (32.0-35.9); MEAN CELL VOLUME 81.1 fl (80-96); MEAN PLT VOLUME 6.6 fl (7.5-11.1); MONO % 7.3 % (3.8-10.2); NEUT % 78.3 % (42.8-82.8); PLATELET COUNT 290 K/MM3 (134-434); RBC 2.91 M/mm3 (4.00-5.60); RDW 15.8 % (11.9-15.9); WHITE BLOOD COUNT 6.9 K/mm3 (4.0-10.0)
[2019-07-23] MEDS ORDERED: oxyCODONE HCL 10 MG SUSTAINED ACTING TABLET PO SCH (10:00)
--- NOTE | 2019-07-23 10:50 | EKG ---
Test Reason : Blood Pressure : / mmHG Vent. Rate : 097 BPM Atrial Rate : 097 BPM P-R Int : 176 ms QRS Dur : 102 ms QT Int : 358 ms P-R-T Axes : 062 039 068 degrees QTc Int : 454 ms NORMAL SINUS RHYTHM NORMAL ECG WHEN COMPARED WITH ECG OF 16-JUN-2019 03:07, NO SIGNIFICANT CHANGE WAS FOUND Confirmed by Adrien Almonte MD ([id number]) on 07/23/2019 10:49:22 AM Referred By: Confirmed By:Adrien Almonte MD
[2019-07-23] MEDS: oxyCODONE HCL 5 MG TABLET PO PRN (13:05)
--- NOTE | 2019-07-23 14:20 | PN ---
Teaching Attending Note Name of Resident: Kirsty Cm ATTENDING PHYSICIAN STATEMENT I saw and evaluated the patient. I reviewed the resident's note and discussed the case with the resident. I agree with the resident's findings and plan as documented. SUBJECTIVE: Has pain in his R upper arm. Has no fever or chills. Denies any SOB. Has no cough. no pain or numbness in R hand. he reports having an appointment with [facility] on to discuss his options . he also has close f/u with his oncologist. PET scan was done recently. OBJECTIVE: NAD, awake, alert, slightly drowsy. No facial droop, EOMI, round equal pupils, reactive to light. MMM CV: RRR, no MRG Lungs: CATB , slightly decreased breath sounds at R base Abd: soft, NT, ND , NL BS Ext: No edema or erythema on LE. RUE with a brace on upper arm, and with edema on hand . nl sensation to light touch and RP 2+ symmetric with R L side. Can move R hand and amke a fist. Neuro of LE: strength 5/5 in hip flexion, knee flexion /extension and ankle dorsiflexion and plantar flexion . sensation to light touch NL. reflexes 2+ knee jerk B/L ASSESSMENT AND PLAN: Unfortunate 64 y/o man with h/o HTN, HLP, prostate cancer, PAD s/p L iliac vessel angioplasty, PCI , h/o heavy smoking, recent diagnossi of lung cancer with mets to bone and brain who presented with pain in RUE trying to get up form his chair. He was found tohave a spiral Fx of the R humerus 1- R humerus Fx: pathologic Fx due to mets to the bone. out pt PET scan report reviewed, evidence of a lesion in R humerus. - case was d/w Dr. Franklin by the team . still no plan on internal fixation - cont brace. - f/u with ortho as out pt. - serial xrays weekly x 3 weeks after dc then q 2-3 weeks after then. 2- H/o DM :cont with SSI 3- H/o recently diagnosed lung cancer. with Mets to brain and spine, and other sites, including R humerus. - He is scheduled to receive treatment at [place]. has close f/u with his oncologist and has Apt with [facility] in 2 days to discuss options - Despite spine mets, neuro exam of LE is non focal. - twin have him follow up with his treating team. 4- HTN: Norvasc and losartan 5- Elevated Alk phos, due to bone mets,. Nl abd exam . no tenderness .no need fro US. 6- DVT PX : Lovenox. Case was d/w patient and son at bedside. rehab placement
[2019-07-23] MEDS ORDERED: MAGNESIUM OXIDE 400 MG TABLET (FP) PO ONE (14:29)
[2019-07-23] MEDS ORDERED: MAGNESIUM OXIDE 400 MG TABLET (FP) ONE (14:41)
--- NOTE | 2019-07-23 15:06 | PN ---
Physical Exam: SUBJECTIVE: Patient examined at bedside with son present. Patient reports right upper arm pain. Patient denies chest pain, shortness of breath, headaches, and numbness and tingling. Denies any change in sensation in his R hand or difference in sensation between his R and L hands. Patient endorses R arm pain and severe back pain. OBJECTIVE: Vital Signs Period Temp Pulse Resp BP Sys/[place] Pulse Ox Last 24 Hr 97.6 F-98.8 F 70-96 16-20 132-177/69-92 95-100 GENERAL: The patient is awake, alert, and fully oriented, in no acute distress. HEAD: Normal with no signs of trauma. EYES: PERRL, extraocular movements intact, sclera anicteric, conjunctiva clear. No ptosis. ENT: Ears normal, nares patent, oropharynx clear without exudates, moist mucous membranes. NECK: Trachea midline, full range of motion, supple. LUNGS: Breath sounds equal, clear to auscultation bilaterally, no wheezes, no crackles, no accessory muscle use. HEART: Regular rate and rhythm, S1, S2 without murmur. ABDOMEN: Soft, nontender, nondistended, normoactive bowel sounds, no guarding, no rebound, no hepatosplenomegaly, no masses. EXTREMITIES: 2+ pulses, warm, well-perfused. Fx of R humerus, patient has limited ability to move arm due to pain. Sensation intact in bilateral UE and project management it specialist strength equal and intact bilaterally. NEUROLOGICAL: Cranial nerves II through XII grossly intact. Normal speech, gait not observed. PSYCH: Normal mood, normal affect. SKIN: Warm, dry, normal turgor, no rashes or lesions noted Laboratory Results - last 24 hr 07/22/19 07/22/19 07/22/19 23:34 23:34 23:34 WBC 7.7 RBC 2.84 L Hgb 8.0 L Hct 23.0 L D MCV 80.8 MCH 28.2 MCHC 34.9 RDW 15.7 D Plt Count 276 MPV 6.5 L Absolute Neuts (auto) 6.5 Neutrophils % 85.2 H D Lymphocytes % 9.0 D Monocytes % 5.3 Eosinophils % 0.2 D Basophils % 0.3 Nucleated RBC % 0 PT with INR 14.10 H INR 1.19 H PTT (Actin FS) 33.2 Sodium 136 Potassium 4.1 Chloride 98 Carbon Dioxide 23 Anion Gap 16 BUN 13.3 Creatinine 0.7 Est GFR (CKD-EPI)AfAm 117.22 Est GFR (CKD-EPI)NonAf 101.14 POC Glucometer Random Glucose 160 H Calcium 9.7 Phosphorus Magnesium Total Bilirubin 1.1 H Direct Bilirubin GGT AST 36 ALT 23 Alkaline Phosphatase 135 H Total Protein 6.9 Albumin 3.1 L Blood Type Antibody Screen 07/22/19 07/23/19 07/23/19 23:34 06:13 07:22 WBC RBC Hgb Hct MCV MCH MCHC RDW Plt Count MPV Absolute Neuts (auto) Neutrophils % Lymphocytes % Monocytes % Eosinophils % Basophils % Nucleated RBC % PT with INR INR PTT (Actin FS) Sodium Potassium Chloride Carbon Dioxide Anion Gap BUN Creatinine Est GFR (CKD-EPI)AfAm Est GFR (CKD-EPI)NonAf POC Glucometer 147 146 Random Glucose Calcium Phosphorus Magnesium Total Bilirubin Direct Bilirubin GGT AST ALT Alkaline Phosphatase Total Protein Albumin Blood Type O POSITIVE Antibody Screen Negative 07/23/19 07/23/19 07/23/19 08:50 08:50 08:50 WBC 6.9 RBC 2.91 L Hgb 8.2 L Hct 23.6 L MCV 81.1 MCH 28.1 MCHC 34.6 RDW 15.8 Plt Count 290 MPV 6.6 L Absolute Neuts (auto) 5.4 Neutrophils % 78.3 Lymphocytes % 13.6 D Monocytes % 7.3 Eosinophils % 0.4 D Basophils % 0.4 Nucleated RBC % 0 PT with INR INR PTT (Actin FS) Sodium 135 L Potassium 4.1 Chloride 97 L Carbon Dioxide 22 Anion Gap 15 BUN 17.0 Creatinine 0.8 Est GFR (CKD-EPI)AfAm 110.96 Est GFR (CKD-EPI)NonAf 95.74 POC Glucometer Random Glucose 138 H Calcium 10.0 Phosphorus 5.1 H Magnesium 1.6 L Total Bilirubin Direct Bilirubin 0.2 GGT AST ALT Alkaline Phosphatase Total Protein Albumin Blood Type Antibody Screen 07/23/19 07/23/19 08:50 11:22 WBC RBC Hgb Hct MCV MCH MCHC RDW Plt Count MPV Absolute Neuts (auto) Neutrophils % Lymphocytes % Monocytes % Eosinophils % Basophils % Nucleated RBC % PT with INR INR PTT (Actin FS) Sodium Potassium Chloride Carbon Dioxide Anion Gap BUN Creatinine Est GFR (CKD-EPI)AfAm Est GFR (CKD-EPI)NonAf POC Glucometer 151 Random Glucose Calcium Phosphorus Magnesium Total Bilirubin Direct Bilirubin GGT 61 AST ALT Alkaline Phosphatase Total Protein Albumin Blood Type Antibody Screen Active Medications Generic Name Dose Route Start Last Admin Trade Name Freq PRN Reason Stop Dose Admin Acetaminophen 1,000 mg 07/23/19 03:41 Tylenol - PO Q6H PRN PAIN LEVEL 1 - 3 Amlodipine Besylate 10 mg 07/23/19 22:00 Norvasc - PO HS MOLLY Atorvastatin Calcium 10 mg 07/23/19 09:15 07/23/19 09:20 Lipitor - PO 10 mg HS MOLLY Administration Cyclobenzaprine HCl 10 mg 07/23/19 10:00 07/23/19 09:14 Flexeril - PO 10 mg BID MOLLY Administration Docusate Sodium 100 mg 07/23/19 10:00 07/23/19 09:14 Colace - PO 100 mg BID MOLLY Administration Enoxaparin Sodium 40 mg 07/23/19 10:00 07/23/19 09:14 Lovenox - SQ 40 mg DAILY MOLLY Administration Insulin Aspart 1 vial 07/23/19 16:30 Novolog Vial Sliding Scale - SQ TIDAC [facility] Protocol Losartan Potassium 50 mg 07/23/19 10:00 07/23/19 09:14 Cozaar - PO 50 mg DAILY MOLLY Administration Oxycodone HCl 5 mg 07/23/19 03:41 Roxicodone - PO Q3H PRN PAIN LEVEL 4 - 6 Oxycodone HCl 10 mg 07/23/19 03:41 07/23/19 13:05 Roxicodone - PO 10 mg Q3H PRN Administration PAIN LEVEL 7 - 10 ASSESSMENT/PLAN: Patient is a 64-year-old male with PMHx of prostate cancer, recent lung cancer with metastasis to the bone, diabetes and hyperlipidemia who presented to the ED with right upper arm pain which started after pushing himself up onto his cane. # Humeral fracture - Orthopedic surgery consulted, patient placed in arriaza functional brace for several weeks; patient to follow up outpatient with x-rays # Anemia - Hgb 8.2, up from 8.0 yesterday - Continue to monitor - Transfuse prn for Hgb <7 # Hyperlipidemia - Continue home simvastatin # Diabetes Mellitus - Continue home Januvia # Hypertension - Continue home Losartan # Hyperbilirubinemia - Total bilirubin 1.1, direct bilirubin .2 - Continue to monitor # DVT Prophylaxis - Lovenox 40 sq daily Dispo: pending social work Visit type - Emergency Visit Emergency Visit: Yes ED Registration Date: 07/23/19 Care time: The patient presented to the Emergency Department on the above date and was hospitalized for further evaluation of their emergent condition. - New Patient This patient is new to me today: Yes Date on this admission: 07/23/19 - Critical Care Critical Care patient: No - Discharge Referral Referred to [facility] No ATTENDING PHYSICIAN STATEMENT I saw and evaluated the patient. I reviewed the resident's note and discussed the case with the resident. I agree with the resident's findings and plan as documented. SUBJECTIVE: OBJECTIVE: ASSESSMENT AND PLAN:
--- NOTE | 2019-07-23 19:37 | PN ---
Progress Note (short form) - Note Progress Note: ORTHOPEDIC SURGERY PROGRESS NOTE Department of Orthopedic Surgery SUBJECTIVE No acute events today. No complaints currently. Denies chest pain, shortness of breath, or calf pain. No nausea or vomiting. Tolerating oral intake. Pain controlled. PHYSICAL EXAMINATION General: Alert, oriented, cooperative and no distress. Right Upper Extremity: Functional brace in place and intact; Skin intact, mild swelling of arm, forearm and hand, no lesions, rashes or ulcers noted. Muscle mass equal and symmetric to contralateral side. No atrophy noted. No masses or effusions noted. No tenderness to palpation at hand wrist or forearm. + TTP at the humerus. Full passive and active ROM, free from pain of the elbow and wrist and fingers. M/R/U/MSK/AX motor intact; SILT distally; 2+ radial pulses; Cap refill brisk. Compartments soft and compressible. No signs of compartment syndrome. DVT Exam: No evidence of DVT seen on physical exam; No cords or calf tenderness ; No significant calf/ankle edema. Intake & Output 07/21/19 07/22/19 07/23/19 23:59 23:59 23:59 Output Total 200 Balance -200 Output: Urine 200 Void 200 Other: Voiding Method Toilet Urinal Weight 150 lb Height 5 ft 8 in Body Mass Index (BMI) 22.8 Active Medications Generic Name Dose Route Start Last Admin Trade Name Freq PRN Reason Stop Dose Admin Acetaminophen 1,000 mg 07/23/19 03:41 Tylenol - PO Q6H PRN PAIN LEVEL 1 - 3 Amlodipine Besylate 10 mg 07/23/19 22:00 Norvasc - PO HS MOLLY Atorvastatin Calcium 10 mg 07/23/19 09:15 07/23/19 09:20 Lipitor - PO 10 mg HS MOLLY Administration Cyclobenzaprine HCl 10 mg 07/23/19 10:00 07/23/19 09:14 Flexeril - PO 10 mg BID MOLLY Administration Docusate Sodium 100 mg 07/23/19 10:00 07/23/19 09:14 Colace - PO 100 mg BID MOLLY Administration Enoxaparin Sodium 40 mg 07/23/19 10:00 07/23/19 09:14 Lovenox - SQ 40 mg DAILY MOLLY Administration Insulin Aspart 1 vial 07/23/19 16:30 07/23/19 16:26 Novolog Vial Sliding Scale - SQ Not Given TIDAC [facility] Protocol Losartan Potassium 50 mg 07/23/19 10:00 07/23/19 09:14 Cozaar - PO 50 mg DAILY MOLLY Administration Oxycodone HCl 5 mg 07/23/19 03:41 Roxicodone - PO Q3H PRN PAIN LEVEL 4 - 6 Oxycodone HCl 10 mg 07/23/19 03:41 07/23/19 13:05 Roxicodone - PO 10 mg Q3H PRN Administration PAIN LEVEL 7 - 10 Vital Signs (last) Temp Pulse Resp BP Pulse Ox 99.2 F 98 H 18 150/87 92 L 07/23/19 18:00 07/23/19 18:00 07/23/19 18:00 07/23/19 18:00 07/23/19 18:00 Laboratory (coagulation) PT with INR 14.10 SEC (9.7-13.0) H 07/22/19 23:34 Laboratory 07/23/19 08:50 07/23/19 08:50 ASSESSMENT AND PLAN Mr. Higgins is a 64 year old male with a right pathologic mid-distal third humeral shaft fracture - in functional brace. Post-reduction radiographs of right humerus show fractured humerus in acceptable position currently. - Pain control: Transition to oral pain medications, minimize narcotic use; avoid NSAIDs - DVT prophylaxis - Ice/Elevation of right forearm and wrist. Ice to right humerus (not directly on skin) - Appreciate medical management (Nutrition optimization, decubitus precautions heel/sacrum, neuro-checks) - PT for RUE (non weight bearing); AROM of hand and fingers and elbow - No surgical orthopedic management - Patient will stay in Delcid brace for next several weeks, with X-rays weekly for the first 3 weeks, and every 2-3 weeks after that until fracture healed. I discussed possible surgical options with the family and the high risk of non-union. I discussed this may occur especially if further displacement of the fracture occurs, but patient and family do not want surgical intervention at this time due to poor prognosis of his Stage IV metastatic lung cancer. - Patient will need X-rays taken at the hospital of his right humerus the day before his office visit. - All questions were answered. Thank you for involving our team in the care of this patient. Please have patient follow up in our office in 1 week after discharge [phone].
[2019-07-23] MEDS: amLODIPine BESYLATE 10 MG TABLET (FP) PO SCH (21:29)
[2019-07-24] MEDS: oxyCODONE HCL 5 MG TABLET PO PRN ×3 (02:26→18:10)
[2019-07-24 07:29] LABS: HEMATOCRIT 23.7 % (35.4-49); HEMOGLOBIN 8.2 GM/dL (11.7-16.9); MCHC 34.7 g/dl (32.0-35.9); MEAN CELL VOLUME 80.9 fl (80-96); MEAN PLT VOLUME 6.7 fl (7.5-11.1); PLATELET COUNT 272 K/MM3 (134-434); RBC 2.93 M/mm3 (4.00-5.60); WHITE BLOOD COUNT 7.2 K/mm3 (4.0-10.0)
[2019-07-24 07:41] LABS: ALBUMIN 2.9 g/dl (3.4-5.0); BLOOD UREA NITROGEN 20.1 mg/dL (7-18); CALCIUM 9.9 mg/dL (8.5-10.1); CREATININE 0.8 mg/dL (0.55-1.3); POTASSIUM 4.1 mmol/L (3.5-5.1); TOT PROT 6.6 g/dl (6.4-8.2)
[2019-07-24] MEDS ORDERED: SODIUM CHLORIDE 1,000 ML IV SCH (08:30)
--- NOTE | 2019-07-24 09:20 | PN ---
Teaching Attending Note Name of Resident: Eleanor Puga ATTENDING PHYSICIAN STATEMENT I saw and evaluated the patient. I reviewed the resident's note and discussed the case with the resident. I agree with the resident's findings and plan as documented. SUBJECTIVE: Patient is comfortable with no acute distress, except c/o having right humurus pain due fracture. OBJECTIVE: Vital Signs Temperature 99.1 F 07/24/19 06:00 Pulse Rate 104 H 07/24/19 06:00 Respiratory Rate 18 07/24/19 06:00 Blood Pressure 141/73 07/24/19 06:00 O2 Sat by Pulse Oximetry (%) 93 L 07/23/19 20:57 GENERAL: The patient is awake, alert, and fully oriented, in no acute distress. HEAD: Normal with no signs of trauma. EYES: PERRL, extraocular movements intact, sclera anicteric, conjunctiva clear. ENT: Ears normal, oropharynx clear without exudates, moist mucous membranes. NECK: Trachea midline, full range of motion, supple. LUNGS: Breath sounds equal, clear to auscultation bilaterally, no wheezes, no crackles, no accessory muscle use. HEART: Regular rate and rhythm, S1, S2 without murmur, rub or gallop. ABDOMEN: Soft, NT, ND, normoactive bowel sounds, no guarding, no rebound, no hepatosplenomegaly, no masses. EXTREMITIES: 2+ pulses, warm, well-perfused, no edema. NEUROLOGICAL: Cranial nerves II through XII grossly intact. Normal speech, gait not observed. PSYCH: Normal mood, normal affect. SKIN: Warm, dry, normal turgor, no rashes or lesions noted CBCD WBC 7.2 K/mm3 (4.0-10.0) 07/24/19 05:30 RBC 2.93 M/mm3 (4.00-5.60) L 07/24/19 05:30 Hgb 8.2 GM/dL (11.7-16.9) L 07/24/19 05:30 Hct 23.7 % (35.4-49) L 07/24/19 05:30 MCV 80.9 fl (80-96) 07/24/19 05:30 MCHC 34.7 g/dl (32.0-35.9) 07/24/19 05:30 RDW 16.0 % (11.9-15.9) H 07/24/19 05:30 Plt Count 272 K/MM3 (134-434) 07/24/19 05:30 MPV 6.7 fl (7.5-11.1) L 07/24/19 05:30 CMP Sodium 130 mmol/L (136-145) L 07/24/19 05:30 Potassium 4.1 mmol/L (3.5-5.1) 07/24/19 05:30 Chloride 96 mmol/L (98-107) L 07/24/19 05:30 Carbon Dioxide 24 mmol/L (21-32) 07/24/19 05:30 Anion Gap 10 MMOL/L (8-16) 07/24/19 05:30 BUN 20.1 mg/dL (7-18) H 07/24/19 05:30 Creatinine 0.8 mg/dL (0.55-1.3) 07/24/19 05:30 Random Glucose 124 mg/dL (74-106) H 07/24/19 05:30 Calcium 9.9 mg/dL (8.5-10.1) 07/24/19 05:30 Total Bilirubin 1.0 mg/dL (0.2-1) 07/24/19 05:30 AST 35 U/L (15-37) 07/24/19 05:30 ALT 21 U/L (13-61) 07/24/19 05:30 Alkaline Phosphatase 133 U/L (45-117) H 07/24/19 05:30 Total Protein 6.6 g/dl (6.4-8.2) 07/24/19 05:30 Albumin 2.9 g/dl (3.4-5.0) L 07/24/19 05:30 Current Medications Generic Name Dose Route Start Last Admin Trade Name Freq PRN Reason Stop Dose Admin Acetaminophen 1,000 mg 07/23/19 03:41 Tylenol - PO Q6H PRN PAIN LEVEL 1 - 3 Amlodipine Besylate 10 mg 07/23/19 22:00 07/23/19 21:29 Norvasc - PO 10 mg HS MOLLY Administration Atorvastatin Calcium 10 mg 07/23/19 09:15 07/23/19 09:20 Lipitor - PO 10 mg HS MOLLY Administration Cyclobenzaprine HCl 10 mg 07/23/19 10:00 07/23/19 21:29 Flexeril - PO 10 mg BID MOLLY Administration Docusate Sodium 100 mg 07/23/19 10:00 07/23/19 21:29 Colace - PO 100 mg BID MOLLY Administration Enoxaparin Sodium 40 mg 07/23/19 10:00 07/23/19 09:14 Lovenox - SQ 40 mg DAILY MOLLY Administration Sodium Chloride 1,000 mls @ 50 mls/hr 07/24/19 08:30 07/24/19 09:17 Normal Saline - IV 07/25/19 04:29 50 mls/hr ASDIR MOLLY Administration Insulin Aspart 1 vial 07/23/19 16:30 07/23/19 16:26 Novolog Vial Sliding Scale - SQ Not Given [facility] Protocol Losartan Potassium 50 mg 07/23/19 10:00 07/23/19 09:14 Cozaar - PO 50 mg DAILY MOLLY Administration Oxycodone HCl 5 mg 07/23/19 03:41 Roxicodone - PO Q3H PRN PAIN LEVEL 4 - 6 Oxycodone HCl 10 mg 07/23/19 03:41 07/24/19 02:26 Roxicodone - PO 10 mg Q3H PRN Administration PAIN LEVEL 7 - 10 Home Medications Medication Instructions Recorded Losartan Potassium [Cozaar -] 50 mg PO DAILY 03/03/18 Simvastatin 20 mg PO DAILY 03/03/18 Amlodipine Besylate [Norvasc -] 10 mg PO HS #30 tablet 03/09/18 Sitagliptin Phosphate [Januvia] 100 mg PO DAILY 06/16/19 Cefuroxime Axetil [Cefuroxime] 500 mg PO BID 07/23/19 Cyclobenzaprine HCl 10 mg PO DAILY 07/23/19 Ergocalciferol (Vitamin D2) 50,000 unit PO WEEKLY 07/23/19 [Vitamin D2] Oxycodone HCl 5 mg PO TID 07/23/19 Tramadol HCl 50 mg PO BID 07/23/19 ASSESSMENT AND PLAN: Patient is a 64 y/o male with PMhx of HTN, HLP, prostate cancer, PAD s/p L iliac vessel angioplasty, PCI , h/o heavy smoking, recent diagnosis of lung cancer with mets to bone and brain who presented with pain in RUE trying to get up form his chair. He was found to have a spiral Fx of the R humerus # Acute R humerus Fx : pathologic Fx due to mets to the bone. out pt PET scan report reviewed, evidence of a lesion in R humerus. Dr. Franklin on the case, suggested to wear the sling with the brace for 3 weeks . serial xrays weekly x 3 weeks after dc then q 2-3 weeks after then. # H/o T2DM :cont with SSI and Januvia as an outpatient # H/o recent dx of diagnosis of lung cancer with Mets to brain and spine, and other sites, including R humerus. - He is scheduled to receive treatment at [place]. has close f/u with his oncologist and has an appointment with [facility] in am to discuss options. he will follow with his doctors at [email or web address] ,and with his treating team. # HTN contolled : Norvasc and losartan continue # Elevated Alk phos, due to bone mets,. Nl abd exam . no tenderness. no need for US. # Acute hyponatrremia 136--136 now , on IVF 0.9NS and rfecheck the sodium prior to dc to rehab. DVT PX : Lovenox. rehab placement follow up with Rtx and oncologist as an outpatient, patient has an appointment in am
--- NOTE | 2019-07-24 10:19 | PN ---
Physical Exam: SUBJECTIVE: Patient seen and examined at the bedside, there was no acute events overnight. Patient reports the pain medicines are helping and that 'd like to see physical therapy to try and walk today. OBJECTIVE: Vital Signs Period Temp Pulse Resp BP Sys/[place] Pulse Ox Last 24 Hr 97.6 F-99.2 F 96-111 18-18 140-159/73-89 92-97 GENERAL: The patient is awake, alert, and fully oriented, in no acute distress. HEAD: Normal with no signs of trauma. EYES: PERRL, extraocular movements intact, sclera anicteric, conjunctiva clear. No ptosis. ENT: Ears normal, nares patent, oropharynx clear without exudates, moist mucous membranes. NECK: Trachea midline, full range of motion, supple. LUNGS: Breath sounds equal, clear to auscultation bilaterally, no wheezes, no crackles, no accessory muscle use. HEART: Regular rate and rhythm, S1, S2 without murmur. ABDOMEN: Soft, nontender, nondistended, normoactive bowel sounds, no guarding, no rebound, no hepatosplenomegaly, no masses. EXTREMITIES: 2+ pulses, warm, well-perfused. Fx of R humerus, patient has limited ability to move arm due to pain. Sensation intact in bilateral UE and stock sorter strength equal and intact bilaterally. NEUROLOGICAL: Cranial nerves II through XII grossly intact. Normal speech, gait not observed. PSYCH: Normal mood, normal affect. SKIN: Warm, dry, normal turgor, no rashes or lesions noted Laboratory Results - last 24 hr 07/23/19 07/23/19 07/23/19 11:22 16:23 21:11 WBC RBC Hgb Hct MCV MCH MCHC RDW Plt Count MPV Sodium Potassium Chloride Carbon Dioxide Anion Gap BUN Creatinine Est GFR (CKD-EPI)AfAm Est GFR (CKD-EPI)NonAf POC Glucometer 151 135 173 Random Glucose Calcium Total Bilirubin AST ALT Alkaline Phosphatase Total Protein Albumin 07/24/19 07/24/19 07/24/19 05:30 05:30 06:14 WBC 7.2 RBC 2.93 L Hgb 8.2 L Hct 23.7 L MCV 80.9 MCH 28.0 MCHC 34.7 RDW 16.0 H Plt Count 272 MPV 6.7 L Sodium 130 L Potassium 4.1 Chloride 96 L Carbon Dioxide 24 Anion Gap 10 BUN 20.1 H Creatinine 0.8 Est GFR (CKD-EPI)AfAm 110.96 Est GFR (CKD-EPI)NonAf 95.74 POC Glucometer 128 Random Glucose 124 H Calcium 9.9 Total Bilirubin 1.0 AST 35 ALT 21 Alkaline Phosphatase 133 H Total Protein 6.6 Albumin 2.9 L Active Medications Generic Name Dose Route Start Last Admin Trade Name Freq PRN Reason Stop Dose Admin Acetaminophen 1,000 mg 07/23/19 03:41 Tylenol - PO Q6H PRN PAIN LEVEL 1 - 3 Amlodipine Besylate 10 mg 07/23/19 22:00 07/23/19 21:29 Norvasc - PO 10 mg HS MOLLY Administration Atorvastatin Calcium 10 mg 07/23/19 09:15 07/23/19 09:20 Lipitor - PO 10 mg HS MOLLY Administration Cyclobenzaprine HCl 10 mg 07/23/19 10:00 07/23/19 21:29 Flexeril - PO 10 mg BID MOLLY Administration Docusate Sodium 100 mg 07/23/19 10:00 07/23/19 21:29 Colace - PO 100 mg BID MOLLY Administration Enoxaparin Sodium 40 mg 07/23/19 10:00 07/23/19 09:14 Lovenox - SQ 40 mg DAILY MOLLY Administration Sodium Chloride 1,000 mls @ 50 mls/hr 07/24/19 08:30 07/24/19 09:17 Normal Saline - IV 07/25/19 04:29 50 mls/hr ASDIR MOLLY Administration Insulin Aspart 1 vial 07/23/19 16:30 07/23/19 16:26 Novolog Vial Sliding Scale - SQ Not Given [facility] Protocol Losartan Potassium 50 mg 07/23/19 10:00 07/23/19 09:14 Cozaar - PO 50 mg DAILY MOLLY Administration Oxycodone HCl 5 mg 07/23/19 03:41 Roxicodone - PO Q3H PRN PAIN LEVEL 4 - 6 Oxycodone HCl 10 mg 07/23/19 03:41 07/24/19 09:24 Roxicodone - PO 10 mg Q3H PRN Administration PAIN LEVEL 7 - 10 ASSESSMENT/PLAN: Patient is a 64-year-old male with PMHx of prostate cancer, recent lung cancer with metastasis to the bone, diabetes and hyperlipidemia who presented to the ED with right upper arm pain which started after pushing himself up onto his cane. # Humeral fracture - Orthopedic surgery consulted, patient placed in arriaza functional brace for several weeks; patient to follow up outpatient with x-rays. - Per ortho: No surgical orthopedic management - Patient will stay in Arriaza brace for next several weeks, with X-rays weekly for the first 3 weeks , and every 2-3 weeks after that until fracture healed. - Patient will need X-rays taken at the hospital of his right humerus the day before his office visit. - Pain control: Transition to oral pain medications, minimize narcotic use; avoid NSAIDs - DVT prophylaxis - Ice/Elevation of right forearm and wrist. Ice to right humerus (not directly on skin) - PT for RUE (non weight bearing); AROM of hand and fingers and elbow - Ortho following, appreciate recommendations # Hyponatremia - Na decreased from 136 to 130. - Patient on 50cc/hr NS, will recheck afternoon BMP - Replete Na prior to discharge # Anemia - Hgb 8.2, up from 8.0 yesterday - Continue to monitor - Transfuse prn for Hgb <7 # Hyperlipidemia - Continue home simvastatin # Diabetes Mellitus - ISS - Will resume home Januvia at discharge # Hypertension - Continue home Losartan - Continue home Norvasc # DVT Prophylaxis - Lovenox 40 sq daily Dispo: pending availability of rehab, needs to follow up with radiation oncologist in [place] Visit type - Emergency Visit Emergency Visit: Yes ED Registration Date: 07/23/19 Care time: The patient presented to the Emergency Department on the above date and was hospitalized for further evaluation of their emergent condition. - New Patient This patient is new to me today: No - Critical Care Critical Care patient: No - Discharge Referral Referred to [facility] No ATTENDING PHYSICIAN STATEMENT I saw and evaluated the patient. I reviewed the resident's note and discussed the case with the resident. I agree with the resident's findings and plan as documented. SUBJECTIVE: OBJECTIVE: ASSESSMENT AND PLAN:
[2019-07-24] MEDS: ENOXAPARIN NA (PORCINE) 40 MG/0.4 ML DISP.SYRIN SQ SCH (11:03)
[2019-07-24] MEDS: LOSARTAN POTASSIUM 50 MG TABLET (FP) PO SCH (11:03)
[2019-07-24] MEDS: DOCUSATE SODIUM 100 MG CAPSULE (FP) PO SCH ×2 (11:03→22:41)
[2019-07-24] MEDS: CYCLOBENZAPRINE HCL 10 MG TABLET (FP) PO SCH ×2 (11:03→22:41)
[2019-07-24] MEDS: INSULIN SLIDING SCALE (NOVOLOG) 1 VIAL SQ SCH ×2 (12:21→17:55)
--- NOTE | 2019-07-24 13:44 | PN ---
Progress Note (short form) - Note Progress Note: ORTHOPEDIC SURGERY PROGRESS NOTE Department of Orthopedic Surgery SUBJECTIVE No acute events today. No complaints currently. Denies chest pain, shortness of breath, or calf pain. No nausea or vomiting. Tolerating oral intake. Pain controlled. PHYSICAL EXAMINATION General: Alert, oriented, cooperative and no distress. Right Upper Extremity: Functional brace in place and intact; Skin intact, improved swelling of arm, forearm and hand, no lesions, rashes or ulcers noted. Muscle mass equal and symmetric to contralateral side. No atrophy noted. No masses or effusions noted. No tenderness to palpation at hand wrist or forearm. + TTP at the humerus. Full passive and active ROM, free from pain of the elbow and wrist and fingers. M/R/U/MSK/AX motor intact; SILT distally; 2+ radial pulses; Cap refill brisk. Compartments soft and compressible. No signs of compartment syndrome. DVT Exam: No evidence of DVT seen on physical exam; No cords or calf tenderness ; No significant calf/ankle edema. Intake & Output 07/22/19 07/23/19 07/24/19 23:59 23:59 23:59 Intake Total 430 350 Output Total 200 Balance 230 350 Intake: IV 150 Normal Saline - 1,000 ml 150 @ 50 mls/hr IV ASDIR MOLLY Rx#:[id number] Oral 430 200 Output: Urine 200 Void 200 Other: Voiding Method Toilet Urinal Urinal # Unmeasured Voids Void 200 300 Weight 150 lb Height 5 ft 8 in 5 ft 8 in Body Mass Index (BMI) 22.8 Active Medications Generic Name Dose Route Start Last Admin Trade Name Freq PRN Reason Stop Dose Admin Acetaminophen 1,000 mg 07/23/19 03:41 Tylenol - PO Q6H PRN PAIN LEVEL 1 - 3 Amlodipine Besylate 10 mg 07/23/19 22:00 07/23/19 21:29 Norvasc - PO 10 mg HS MOLLY Administration Atorvastatin Calcium 10 mg 07/23/19 09:15 07/23/19 09:20 Lipitor - PO 10 mg HS MOLLY Administration Cyclobenzaprine HCl 10 mg 07/23/19 10:00 07/24/19 11:03 Flexeril - PO 10 mg BID MOLLY Administration Docusate Sodium 100 mg 07/23/19 10:00 07/24/19 11:03 Colace - PO 100 mg BID MOLLY Administration Enoxaparin Sodium 40 mg 07/23/19 10:00 07/24/19 11:03 Lovenox - SQ 40 mg DAILY MOLLY Administration Insulin Aspart 1 vial 07/23/19 16:30 07/24/19 12:21 Novolog Vial Sliding Scale - SQ Not Given [facility] Protocol Losartan Potassium 50 mg 07/23/19 10:00 07/24/19 11:03 Cozaar - PO 50 mg DAILY MOLLY Administration Oxycodone HCl 5 mg 07/23/19 03:41 Roxicodone - PO Q3H PRN PAIN LEVEL 4 - 6 Oxycodone HCl 10 mg 07/23/19 03:41 07/24/19 09:24 Roxicodone - PO 10 mg Q3H PRN Administration PAIN LEVEL 7 - 10 Vital Signs (last) Temp Pulse Resp BP Pulse Ox 98.9 F 110 H 24 H 138/80 93 L 07/24/19 10:47 07/24/19 12:24 07/24/19 12:24 07/24/19 12:24 07/23/19 20:57 Laboratory (coagulation) PT with INR 14.10 SEC (9.7-13.0) H 07/22/19 23:34 Laboratory 07/24/19 05:30 07/24/19 05:30 ASSESSMENT AND PLAN Mr. Higgins is a 64 year old male with a right pathologic mid-distal third humeral shaft fracture - in functional brace. Post-reduction radiographs of right humerus show fractured humerus in acceptable position currently. - Pain control: Transition to oral pain medications, minimize narcotic use; avoid NSAIDs - DVT prophylaxis - Recommend Spine surgery consult regarding thoracolumbar metastasis and pain - Ice/Elevation of right forearm and wrist. Ice to right humerus (not directly on skin) - Appreciate medical management (Nutrition optimization, decubitus precautions heel/sacrum, neuro-checks) - PT for RUE (non weight bearing); AROM of hand and fingers and elbow - No surgical orthopedic management - Patient will stay in Delcid brace for next several weeks, with X-rays weekly for the first 3 weeks, and every 2-3 weeks after that until fracture healed. I discussed possible surgical options with the family and the high risk of non-union. I discussed this may occur especially if further displacement of the fracture occurs, but patient and family do not want surgical intervention at this time due to poor prognosis of his Stage IV metastatic lung cancer. - Patient will need X-rays taken at the hospital of his right humerus the day before his office visit. - All questions were answered. Thank you for involving our team in the care of this patient. Please have patient follow up in our office in 1 week after discharge [phone].
[2019-07-24 16:31] LABS: BLOOD UREA NITROGEN 22.6 mg/dL (7-18); CALCIUM 9.5 mg/dL (8.5-10.1); CREATININE 0.9 mg/dL (0.55-1.3)
[2019-07-24] MEDS: SODIUM CHLORIDE 1,000 ML IV SCH (18:07)
[2019-07-24 22:28] LABS: BLOOD UREA NITROGEN 24.7 mg/dL (7-18); CALCIUM 9.5 mg/dL (8.5-10.1); POTASSIUM 4.2 mmol/L (3.5-5.1)
[2019-07-24] MEDS: ATORVASTATIN CA 10 MG TABLET (FP) PO SCH (22:42)
[2019-07-24] MEDS: amLODIPine BESYLATE 10 MG TABLET (FP) PO SCH (22:42)
[2019-07-24] MEDS: ACETAMINOPHEN 500 MG TABLET (FP) PO PRN (23:59)
[2019-07-25] MEDS ORDERED: INSULIN (NOVOLOG) ASPART 100 UNITS/ML 10ML VIAL ONE (05:57)
[2019-07-25] MEDS: INSULIN SLIDING SCALE (NOVOLOG) 1 VIAL SQ SCH ×3 (06:05→21:34)
[2019-07-25] MEDS: SODIUM CHLORIDE 1,000 ML IV SCH ×2 (06:06→21:34)
[2019-07-25 08:17] LABS: HEMATOCRIT 22.5 % (35.4-49); HEMOGLOBIN 7.8 GM/dL (11.7-16.9); MCHC 34.5 g/dl (32.0-35.9); MEAN CELL VOLUME 81.1 fl (80-96); MEAN PLT VOLUME 6.9 fl (7.5-11.1); PLATELET COUNT 254 K/MM3 (134-434); RBC 2.77 M/mm3 (4.00-5.60); RDW 16.1 % (11.9-15.9); WHITE BLOOD COUNT 6.4 K/mm3 (4.0-10.0)
[2019-07-25 08:18] LABS: BLOOD UREA NITROGEN 21.2 mg/dL (7-18); CALCIUM 9.6 mg/dL (8.5-10.1); CREATININE 0.8 mg/dL (0.55-1.3); POTASSIUM 3.7 mmol/L (3.5-5.1)
[2019-07-25] MEDS: oxyCODONE HCL 5 MG TABLET PO PRN ×2 (08:49→21:32)
[2019-07-25] MEDS: ENOXAPARIN NA (PORCINE) 40 MG/0.4 ML DISP.SYRIN SQ SCH (11:14)
[2019-07-25] MEDS: DOCUSATE SODIUM 100 MG CAPSULE (FP) PO SCH ×2 (11:15→21:31)
[2019-07-25] MEDS: LOSARTAN POTASSIUM 50 MG TABLET (FP) PO SCH (11:15)
[2019-07-25] MEDS: CYCLOBENZAPRINE HCL 10 MG TABLET (FP) PO SCH ×2 (11:15→21:31)
--- NOTE | 2019-07-25 17:22 | PN ---
Physical Exam: SUBJECTIVE: Patient seen and examined at the bedside. There were no acute events overnight. The patient still in some pain. PT holding off assessing patient until we consult Neurosurgery as per Dr. Franklin's recommendation, to determine the stability of the patient's spine (given his numerous spinal metastases and recent history of pathalogic fx). OBJECTIVE: Vital Signs Period Temp Pulse Resp BP Sys/De [place] Torre Pulse Ox Last 24 Hr 97.4 F-100.2 F 100-109 20-20 121-147/65-88 98 GENERAL: The patient is awake, alert, and fully oriented, in no acute distress. HEAD: Normal with no signs of trauma. EYES: PERRL, extraocular movements intact, sclera anicteric, conjunctiva clear. No ptosis. ENT: Ears normal, nares patent, oropharynx clear without exudates, moist mucous membranes. NECK: Trachea midline, full range of motion, supple. LUNGS: Breath sounds equal, clear to auscultation bilaterally, no wheezes, no crackles, no accessory muscle use. HEART: Regular rate and rhythm, S1, S2 without murmur. ABDOMEN: Soft, nontender, nondistended, normoactive bowel sounds, no guarding, no rebound, no hepatosplenomegaly, no masses. EXTREMITIES: 2+ pulses, warm, well-perfused. Fx of R humerus, patient has limited ability to move arm due to pain. Sensation intact in bilateral UE and plant floor automation manager strength equal and intact bilaterally. NEUROLOGICAL: Cranial nerves II through XII grossly intact. Normal speech, gait not observed. PSYCH: Normal mood, normal affect. SKIN: Warm, dry, normal turgor, no rashes or lesions noted Laboratory Results - last 24 hr 07/24/19 07/24/19 07/24/19 17:53 21:00 22:40 WBC RBC Hgb Hct MCV MCH MCHC RDW Plt Count MPV Sodium 131 L Potassium 4.2 Chloride 95 L Carbon Dioxide 26 Anion Gap 10 BUN 24.7 H Creatinine 1.0 Est GFR (CKD-EPI)AfAm 93.08 Est GFR (CKD-EPI)NonAf 80.31 POC Glucometer 143 170 Random Glucose 170 H Calcium 9.5 07/25/19 07/25/19 07/25/19 06:03 06:35 06:35 WBC 6.4 RBC 2.77 L Hgb 7.8 L Hct 22.5 L MCV 81.1 MCH 28.0 MCHC 34.5 RDW 16.1 H Plt Count 254 MPV 6.9 L Sodium 132 L Potassium 3.7 Chloride 98 Carbon Dioxide 25 Anion Gap 9 BUN 21.2 H Creatinine 0.8 Est GFR (CKD-EPI)AfAm 110.96 Est GFR (CKD-EPI)NonAf 95.74 POC Glucometer 126 Random Glucose 123 H Calcium 9.6 07/25/19 12:02 WBC RBC Hgb Hct MCV MCH MCHC RDW Plt Count MPV Sodium Potassium Chloride Carbon Dioxide Anion Gap BUN Creatinine Est GFR (CKD-EPI)AfAm Est GFR (CKD-EPI)NonAf POC Glucometer 197 Random Glucose Calcium Active Medications Generic Name Dose Route Start Last Admin Trade Name Freq PRN Reason Stop Dose Admin Acetaminophen 1,000 mg 07/23/19 03:41 07/24/19 23:59 Tylenol - PO 1,000 mg Q6H PRN Administration PAIN LEVEL 1 - 3 Amlodipine Besylate 10 mg 07/23/19 22:00 07/24/19 22:42 Norvasc - PO 10 mg HS MOLLY Administration Atorvastatin Calcium 10 mg 07/23/19 09:15 07/24/19 22:42 Lipitor - PO 10 mg HS MOLLY Administration Cyclobenzaprine HCl 10 mg 07/23/19 10:00 07/25/19 11:15 Flexeril - PO 10 mg BID MOLLY Administration Docusate Sodium 100 mg 07/23/19 10:00 07/25/19 11:15 Colace - PO 100 mg BID MOLLY Administration Enoxaparin Sodium 40 mg 07/23/19 10:00 07/25/19 11:14 Lovenox - SQ 40 mg DAILY MOLLY Administration Sodium Chloride 1,000 mls @ 75 mls/hr 07/24/19 16:45 07/25/19 06:06 Normal Saline - IV 07/26/19 06:04 75 mls/hr ASDIR MOLLY Administration Insulin Aspart 1 vial 07/23/19 16:30 07/25/19 12:04 Novolog Vial Sliding Scale - SQ Not Given [facility] Protocol Losartan Potassium 50 mg 07/23/19 10:00 07/25/19 11:15 Cozaar - PO 50 mg DAILY MOLLY Administration Oxycodone HCl 5 mg 07/23/19 03:41 07/24/19 18:10 Roxicodone - PO 5 mg Q3H PRN Administration PAIN LEVEL 4 - 6 Oxycodone HCl 10 mg 07/23/19 03:41 07/25/19 08:49 Roxicodone - PO 10 mg Q3H PRN Administration PAIN LEVEL 7 - 10 ASSESSMENT/PLAN: Patient is a 64-year-old male with PMHx of prostate cancer, recent lung cancer with metastasis to the bone, diabetes and hyperlipidemia who presented to the ED with right upper arm pain which started after pushing himself up onto his cane. # Humeral fracture - Orthopedic surgery consulted (Dr. Franklin), appreciate recommendations - Patient placed in arriaza functional brace for several weeks; patient to follow up outpatient with x-rays. - Per ortho: No surgical orthopedic management - Patient will stay in Arriaza brace for next several weeks, with X-rays weekly for the first 3 weeks , and every 2-3 weeks after that until fracture healed. - Patient will need X-rays taken at the hospital of his right humerus the day before his office visit. - Neurosurgery (Dr. Parham) consulted, appreciate recommendations - Pain control: Transition to oral pain medications, minimize narcotic use; avoid NSAIDs - DVT prophylaxis - Ice/Elevation of right forearm and wrist. Ice to right humerus (not directly on skin) - PT for RUE (non weight bearing); AROM of hand and fingers and elbow > will assess patient after we receive recommendations from Neurosurgery - Consider consulted palliative care to help with pain management # Hyponatremia - Na decreased from 136 to 130. - Patient on 50cc/hr NS, will recheck afternoon BMP - Replete Na prior to discharge # Anemia - Hgb 8.2, up from 8.0 yesterday - Continue to monitor - Transfuse prn for Hgb <7 # Hyperlipidemia - Continue home simvastatin # Diabetes Mellitus - ISS - Will resume home Januvia at discharge # Hypertension - Continue home Losartan - Continue home Norvasc # DVT Prophylaxis - Lovenox 40 sq daily Dispo: Spoke to Dr. Winchester, the patient's oncologist. She states that if we are able to control the patient's pain and he is mobile then he can be d/c'd for outpatient treatment of his cancer. Agrees that ortho/neurosurgery/ and palliatiave care/ pain management consults are warranted at this time. Visit type - Emergency Visit Emergency Visit: Yes ED Registration Date: 07/23/19 Care time: The patient presented to the Emergency Department on the above date and was hospitalized for further evaluation of their emergent condition. - New Patient This patient is new to me today: No - Critical Care Critical Care patient: No - Discharge Referral Referred to [facility] No ATTENDING PHYSICIAN STATEMENT I saw and evaluated the patient. I reviewed the resident's note and discussed the case with the resident. I agree with the resident's findings and plan as documented. SUBJECTIVE: OBJECTIVE: ASSESSMENT AND PLAN:
[2019-07-25] MEDS: amLODIPine BESYLATE 10 MG TABLET (FP) PO SCH (21:31)
[2019-07-25] MEDS: ATORVASTATIN CA 10 MG TABLET (FP) PO SCH (21:31)
--- NOTE | 2019-07-25 21:32 | PN ---
Teaching Attending Note Name of Resident: Eleanor Puga ATTENDING PHYSICIAN STATEMENT I saw and evaluated the patient. I reviewed the resident's note and discussed the case with the resident. I agree with the resident's findings and plan as documented. SUBJECTIVE: Patient is comfortable but having difficulty with ambulation due to having right extremity fx . Family member at bedside OBJECTIVE: Vital Signs Temperature 98.7 F 07/25/19 18:00 Pulse Rate 100 H 07/25/19 18:00 Respiratory Rate 20 07/25/19 18:00 Blood Pressure 136/67 07/25/19 18:00 O2 Sat by Pulse Oximetry (%) 99 07/25/19 09:00 GENERAL: The patient is awake, alert, and fully oriented, in no acute distress except right humurus pain. HEAD: Normal with no signs of trauma. EYES: PERRL, extraocular movements intact, sclera anicteric, conjunctiva clear. ENT: Ears normal, oropharynx clear without exudates, moist mucous membranes. NECK: Trachea midline, full range of motion, supple. LUNGS: Breath sounds equal, clear to auscultation bilaterally, no wheezes, no crackles, no accessory muscle use. HEART: Regular rate and rhythm, S1, S2 without murmur, rub or gallop. ABDOMEN: Soft, NT,ND, normoactive bowel sounds, no guarding, no rebound, no hepatosplenomegaly, no masses. EXTREMITIES: 2+ pulses, warm, well-perfused, no edema. Right humurus fx. NEUROLOGICAL: Cranial nerves II through XII grossly intact. Normal speech, gait not observed. PSYCH: Normal mood, normal affect. SKIN: Warm, dry, normal turgor, no rashes or lesions noted CBCD WBC 6.4 K/mm3 (4.0-10.0) 07/25/19 06:35 RBC 2.77 M/mm3 (4.00-5.60) L 07/25/19 06:35 Hgb 7.8 GM/dL (11.7-16.9) L 07/25/19 06:35 Hct 22.5 % (35.4-49) L 07/25/19 06:35 MCV 81.1 fl (80-96) 07/25/19 06:35 MCHC 34.5 g/dl (32.0-35.9) 07/25/19 06:35 RDW 16.1 % (11.9-15.9) H 07/25/19 06:35 Plt Count 254 K/MM3 (134-434) 07/25/19 06:35 MPV 6.9 fl (7.5-11.1) L 07/25/19 06:35 CMP Sodium 132 mmol/L (136-145) L 07/25/19 06:35 Potassium 3.7 mmol/L (3.5-5.1) 07/25/19 06:35 Chloride 98 mmol/L (98-107) 07/25/19 06:35 Carbon Dioxide 25 mmol/L (21-32) 07/25/19 06:35 Anion Gap 9 MMOL/L (8-16) 07/25/19 06:35 BUN 21.2 mg/dL (7-18) H 07/25/19 06:35 Creatinine 0.8 mg/dL (0.55-1.3) 07/25/19 06:35 Random Glucose 123 mg/dL (74-106) H 07/25/19 06:35 Calcium 9.6 mg/dL (8.5-10.1) 07/25/19 06:35 Total Bilirubin 1.0 mg/dL (0.2-1) 07/24/19 05:30 AST 35 U/L (15-37) 07/24/19 05:30 ALT 21 U/L (13-61) 07/24/19 05:30 Alkaline Phosphatase 133 U/L (45-117) H 07/24/19 05:30 Total Protein 6.6 g/dl (6.4-8.2) 07/24/19 05:30 Albumin 2.9 g/dl (3.4-5.0) L 07/24/19 05:30 Current Medications Generic Name Dose Route Start Last Admin Trade Name Freq PRN Reason Stop Dose Admin Acetaminophen 1,000 mg 07/23/19 03:41 07/24/19 23:59 Tylenol - PO 1,000 mg Q6H PRN Administration PAIN LEVEL 1 - 3 Amlodipine Besylate 10 mg 07/23/19 22:00 07/24/19 22:42 Norvasc - PO 10 mg HS MOLLY Administration Atorvastatin Calcium 10 mg 07/23/19 09:15 07/24/19 22:42 Lipitor - PO 10 mg HS MOLLY Administration Cyclobenzaprine HCl 10 mg 07/23/19 10:00 07/25/19 11:15 Flexeril - PO 10 mg BID MOLLY Administration Docusate Sodium 100 mg 07/23/19 10:00 07/25/19 11:15 Colace - PO 100 mg BID MOLLY Administration Enoxaparin Sodium 40 mg 07/23/19 10:00 07/25/19 11:14 Lovenox - SQ 40 mg DAILY MOLLY Administration Sodium Chloride 1,000 mls @ 75 mls/hr 07/24/19 16:45 07/25/19 06:06 Normal Saline - IV 07/26/19 06:04 75 mls/hr ASDIR MOLLY Administration Insulin Aspart 1 vial 07/23/19 16:30 07/25/19 12:04 Novolog Vial Sliding Scale - SQ Not Given TIDAC [facility] Protocol Losartan Potassium 50 mg 07/23/19 10:00 07/25/19 11:15 Cozaar - PO 50 mg DAILY MOLLY Administration Oxycodone HCl 5 mg 07/23/19 03:41 07/24/19 18:10 Roxicodone - PO 5 mg Q3H PRN Administration PAIN LEVEL 4 - 6 Oxycodone HCl 10 mg 07/23/19 03:41 07/25/19 08:49 Roxicodone - PO 10 mg Q3H PRN Administration PAIN LEVEL 7 - 10 Home Medications Medication Instructions Recorded Losartan Potassium [Cozaar -] 50 mg PO DAILY 03/03/18 Simvastatin 20 mg PO DAILY 03/03/18 Amlodipine Besylate [Norvasc -] 10 mg PO HS #30 tablet 03/09/18 Sitagliptin Phosphate [Januvia] 100 mg PO DAILY 06/16/19 Cyclobenzaprine HCl 10 mg PO DAILY 07/23/19 Ergocalciferol (Vitamin D2) 50,000 unit PO WEEKLY 07/23/19 [Vitamin D2] Oxycodone HCl 5 mg PO TID 07/23/19 Tramadol HCl 50 mg PO BID 07/23/19 ASSESSMENT AND PLAN: Patient is a 64 y/o male with PMhx of HTN, HLP, prostate cancer, PAD s/p L iliac vessel angioplasty, PCI , h/o heavy smoking, recent diagnosis of lung cancer with mets to bone and brain who presented with pain in RUE trying to get up form his chair. He was found to have a spiral Fx of the R humerus # Acute R humerus Fx : pathologic Fx due to mets to the bone. out pt PET scan report reviewed, evidence of a lesion in R humerus. Dr. Franklin on the case, suggested to wear the sling with the brace for 3 weeks . and will follow with him in a week. serial xrays weekly x 3 weeks after dc then q 2-3 weeks after then. # H/o T2DM :cont with SSI and Januvia as an outpatient # H/o recent dx of diagnosis of lung cancer with Mets to brain and spine, and other sites, including R humerus. - He is scheduled to receive treatment at [facility]. has close f/u with his oncologist and has an appointment with [facility] in am to discuss options. he will follow with his doctors at [facility] ,and with his treating team. # HTN contolled : Norvasc and losartan continue # Elevated Alk phos, due to bone mets,. Nl abd exam . no tenderness. no need for US. # Acute hyponatrremia 136--136 now , on IVF 0.9NS and rfecheck the sodium prior to dc to rehab. DVT PX : Lovenox. rehab placement follow up with Rtx and oncologist as an outpatient, patient has an appointment with his own oncologist
[2019-07-26] MEDS: INSULIN SLIDING SCALE (NOVOLOG) 1 VIAL SQ SCH ×3 (06:31→17:47)
[2019-07-26 08:07] LABS: HEMATOCRIT 20.6 % (35.4-49); HEMOGLOBIN 7.1 GM/dL (11.7-16.9); MCH 27.8 pg (25.7-33.7); MCHC 34.4 g/dl (32.0-35.9); MEAN CELL VOLUME 80.9 fl (80-96); MEAN PLT VOLUME 6.7 fl (7.5-11.1); PLATELET COUNT 236 K/MM3 (134-434); RBC 2.54 M/mm3 (4.00-5.60); RDW 16.3 % (11.9-15.9)
--- NOTE | 2019-07-26 08:17 | PN ---
Progress Note (short form) - Note Progress Note: ORTHOPEDIC SURGERY PROGRESS NOTE Department of Orthopedic Surgery SUBJECTIVE No acute events today. No complaints currently. Denies chest pain, shortness of breath, or calf pain. No nausea or vomiting. Tolerating oral intake. Pain controlled. PHYSICAL EXAMINATION General: Alert, oriented, cooperative and no distress. Right Upper Extremity: Functional brace in place and intact; Skin intact, improved swelling of arm, forearm and hand, no lesions, rashes or ulcers noted. Muscle mass equal and symmetric to contralateral side. No atrophy noted. No masses or effusions noted. No tenderness to palpation at hand wrist or forearm. + TTP at the humerus. Full passive and active ROM, free from pain of the elbow and wrist and fingers. M/R/U/MSK/AX motor intact; SILT distally; 2+ radial pulses; Cap refill brisk. Compartments soft and compressible. No signs of compartment syndrome. DVT Exam: No evidence of DVT seen on physical exam; No cords or calf tenderness ; No significant calf/ankle edema. Intake & Output 07/24/19 07/25/19 07/26/19 23:59 23:59 23:59 Intake Total 925 1940 0 Balance 925 1940 0 Intake: IV 225 900 0 Normal Saline - 1,000 ml 150 @ 50 mls/hr IV ASDIR MOLLY Rx#:[id number] Normal Saline - 1,000 ml 75 900 @ 75 mls/hr IV ASDIR MOLLY Rx#:[id number] saline lock 0 Oral 700 480 Oral Supplement 560 Other: Voiding Method Urinal Incontinent # Unmeasured Voids Void 300 1 Bowel Movement No No No Active Medications Generic Name Dose Route Start Last Admin Trade Name Freq PRN Reason Stop Dose Admin Acetaminophen 1,000 mg 07/23/19 03:41 07/24/19 23:59 Tylenol - PO 1,000 mg Q6H PRN Administration PAIN LEVEL 1 - 3 Amlodipine Besylate 10 mg 07/23/19 22:00 07/25/19 21:31 Norvasc - PO 10 mg HS MOLLY Administration Atorvastatin Calcium 10 mg 07/23/19 09:15 07/25/19 21:31 Lipitor - PO 10 mg HS MOLLY Administration Cyclobenzaprine HCl 10 mg 07/23/19 10:00 07/25/19 21:31 Flexeril - PO 10 mg BID MOLLY Administration Docusate Sodium 100 mg 07/23/19 10:00 07/25/19 21:31 Colace - PO 100 mg BID MOLLY Administration Enoxaparin Sodium 40 mg 07/23/19 10:00 07/25/19 11:14 Lovenox - SQ 40 mg DAILY MOLLY Administration Insulin Aspart 1 vial 07/23/19 16:30 07/26/19 06:31 Novolog Vial Sliding Scale - SQ Not Given TIDAC [facility] Protocol Losartan Potassium 50 mg 07/23/19 10:00 07/25/19 11:15 Cozaar - PO 50 mg DAILY MOLLY Administration Oxycodone HCl 5 mg 07/23/19 03:41 07/24/19 18:10 Roxicodone - PO 5 mg Q3H PRN Administration PAIN LEVEL 4 - 6 Oxycodone HCl 10 mg 07/23/19 03:41 07/25/19 21:32 Roxicodone - PO 10 mg Q3H PRN Administration PAIN LEVEL 7 - 10 Vital Signs (last) Temp Pulse Resp BP Pulse Ox 97.9 F 98 H 20 142/67 95 07/26/19 04:00 07/26/19 04:00 07/26/19 04:00 07/26/19 04:00 07/25/19 21:00 Laboratory (coagulation) PT with INR 14.10 SEC (9.7-13.0) H 07/22/19 23:34 ASSESSMENT AND PLAN Mr. Higgins is a 64 year old male with a right pathologic mid-distal third humeral shaft fracture - in functional brace. Post-reduction radiographs of right humerus show fractured humerus in acceptable position currently. - Pain control: Transition to oral pain medications, minimize narcotic use; avoid NSAIDs - DVT prophylaxis - F/U Spine surgery plan regarding thoracolumbar metastasis and pain - Ice/Elevation of right forearm and wrist. Ice to right humerus (not directly on skin) - Appreciate medical management (Nutrition optimization, decubitus precautions heel/sacrum, neuro-checks) - PT for RUE (non weight bearing); AROM of hand and fingers and elbow - Patient will stay in Delcid brace to RUE for next several weeks, with X- rays weekly for the first 3 weeks, and every 2-3 weeks after that until fracture healed. I discussed possible surgical options with the family and the risk of non-union. I discussed this may occur especially if further displacement of the fracture occurs, but patient and family do not want surgical intervention at this time due to poor prognosis of his Stage IV metastatic lung cancer. - I discussed the case with the patient's oncologist at [facility] Dr. Tyson yesterday evening. She discussed that she spoke with the family and discussed the poor prognosis with the patient. She discussed that he has an appointment with her next week as an outpatient if he is able to be discharged from the hospital. - Once discharged, he can follow up with orthopedic oncology at [facility] for further evaluation and treatment of his pathologic right humerus fracture. - All questions were answered. Thank you for involving our team in the care of this patient. - No further orthopedic surgical intervention at this time.
--- NOTE | 2019-07-26 08:22 | PN ---
Physical Exam: SUBJECTIVE: Patient seen and examined at bedside; no acute events overngiht patient is still in a lot of pain; patients arm now in a sling. he will be receiving 2 units of prbcs ; complaining of ear pain and had some spitting up blood OBJECTIVE: Vital Signs Period Temp Pulse Resp BP Sys/[place] Pulse Ox Last 24 Hr 97.9 F-98.7 F 96-105 20-20 111-142/40-68 95-99 GENERAL: The patient is awake, alert, and fully oriented, in no acute distress. EYES:P ENT: Ears normal, nares patent, oropharynx clear without exudates, moist mucous membranes. NECK: Trachea midline, full range of motion, supple. LUNGS: Breath sounds equal, clear to auscultation bilaterally, no wheezes, no crackles, no accessory muscle use. HEART: Regular rate and rhythm, S1, S2 without murmur, rub or gallop. ABDOMEN: Soft, nontender, nondistended, normoactive bowel sounds, no guarding, no rebound, no hepatosplenomegaly, no masses. EXTREMITIES: 2+ pulses, warm, well-perfused, no edema. NEUROLOGICAL: Cranial nerves II through XII grossly intact. Normal speech, gait not observed. PSYCH: Normal mood, normal affect. SKIN: Warm, dry, normal turgor, no rashes or lesions noted Laboratory Results - last 24 hr 07/25/19 07/25/19 07/25/19 06:35 12:02 17:29 WBC 6.4 RBC 2.77 L Hgb 7.8 L Hct 22.5 L MCV 81.1 MCH 28.0 MCHC 34.5 RDW 16.1 H Plt Count 254 MPV 6.9 L POC Glucometer 197 123 07/25/19 07/26/19 21:30 06:25 WBC RBC Hgb Hct MCV MCH MCHC RDW Plt Count MPV POC Glucometer 157 121 Active Medications Generic Name Dose Route Start Last Admin Trade Name Freq PRN Reason Stop Dose Admin Acetaminophen 1,000 mg 07/23/19 03:41 07/24/19 23:59 Tylenol - PO 1,000 mg Q6H PRN Administration PAIN LEVEL 1 - 3 Amlodipine Besylate 10 mg 07/23/19 22:00 07/25/19 21:31 Norvasc - PO 10 mg HS MOLLY Administration Atorvastatin Calcium 10 mg 07/23/19 09:15 07/25/19 21:31 Lipitor - PO 10 mg HS MOLLY Administration Cyclobenzaprine HCl 10 mg 07/23/19 10:00 07/25/19 21:31 Flexeril - PO 10 mg BID MOLLY Administration Docusate Sodium 100 mg 07/23/19 10:00 07/25/19 21:31 Colace - PO 100 mg BID MOLLY Administration Enoxaparin Sodium 40 mg 07/23/19 10:00 07/25/19 11:14 Lovenox - SQ 40 mg DAILY MOLLY Administration Insulin Aspart 1 vial 07/23/19 16:30 07/26/19 06:31 Novolog Vial Sliding Scale - SQ Not Given TIDAC [facility] Protocol Losartan Potassium 50 mg 07/23/19 10:00 07/25/19 11:15 Cozaar - PO 50 mg DAILY MOLLY Administration Oxycodone HCl 5 mg 07/23/19 03:41 07/24/19 18:10 Roxicodone - PO 5 mg Q3H PRN Administration PAIN LEVEL 4 - 6 Oxycodone HCl 10 mg 07/23/19 03:41 07/25/19 21:32 Roxicodone - PO 10 mg Q3H PRN Administration PAIN LEVEL 7 - 10 ASSESSMENT/PLAN: Patient is a 64-year-old male with PMHx of prostate cancer, recent lung cancer with metastasis to the bone, diabetes and hyperlipidemia who presented to the ED with right upper arm pain which started after pushing himself up onto his cane. # Humeral fracture - Orthopedic surgery consulted (Dr. Franklin), appreciate recommendations - Patient placed in arriaza functional brace for several weeks; patient to follow up outpatient with x-rays. - Per ortho: No surgical orthopedic management - Patient will stay in Arriaza brace for next several weeks, with X-rays weekly for the first 3 weeks , and every 2-3 weeks after that until fracture healed. - Patient will need X-rays taken at the hospital of his right humerus the day before his office visit. - Neurosurgery (Dr. Parham) consulted, appreciate recommendations - Pain control: Transition to oral pain medications, minimize narcotic use; avoid NSAIDs - DVT prophylaxis - Ice/Elevation of right forearm and wrist. Ice to right humerus (not directly on skin) - PT for RUE (non weight bearing); AROM of hand and fingers and elbow > will assess patient after we receive recommendations from Neurosurgery - Consider consulted palliative care to help with pain management # Hyponatremia - improved # Anemia - Hgb 7.9, m - transfusing 2 units today # Hyperlipidemia - Continue home simvastatin # Diabetes Mellitus - ISS - Will resume home Januvia at discharge # Hypertension - Continue home Losartan - Continue home Norvasc # DVT Prophylaxis - Lovenox 40 sq daily Problem List - Problems (1) Anemia Code(s): D64.9 - ANEMIA, UNSPECIFIED (2) Humeral fracture Code(s): S42.309A - UNSP FRACTURE OF SHAFT OF HUMERUS, UNSP ARM, INIT (3) Intractable pain Code(s): R52 - PAIN, UNSPECIFIED Visit type - Emergency Visit Emergency Visit: Yes ED Registration Date: 07/23/19 Care time: The patient presented to the Emergency Department on the above date and was hospitalized for further evaluation of their emergent condition. - New Patient This patient is new to me today: No - Critical Care Critical Care patient: No ATTENDING PHYSICIAN STATEMENT I saw and evaluated the patient. I reviewed the resident's note and discussed the case with the resident. I agree with the resident's findings and plan as documented. SUBJECTIVE: OBJECTIVE: ASSESSMENT AND PLAN:
[2019-07-26 08:33] LABS: BLOOD UREA NITROGEN 18.8 mg/dL (7-18); CALCIUM 9.8 mg/dL (8.5-10.1); CREATININE 0.7 mg/dL (0.55-1.3)
--- NOTE | 2019-07-26 08:41 | CONSULT ---
Consultation: Hematology/Oncology Consultation REQUESTING PROVIDER: Dr. Cm CONSULT REQUEST: We have been asked to medically evaluate this patient for metastatic lung cancer HISTORY OF PRESENT ILLNESS: 64 year old male with a history of prostate CA (years ago), stage IV lung cancer with mets to the bone, adrenals, brain diagnosed 1 month ago, diabetes, hyperlipidemia presented to the hospital for intractible R arm pain; found to have a pathologic fracture of his R humerus. Patient was recently diagnosed with lung CA and is being followed by Dr. Ira Tyson as an outpatient. Patient is weak and unable to walk easily without pain. Per family and primary team, patient already has had PET scan and a tissue diagnosis. He already had a plan of treatment for chemo/immuno/RT with his outpatient oncologist set. Currently, patient only complains of pain, denies shortness of breath, nausea, vomiting, diarrhea, fevers, chills. Allergies: penicillin Surgical Hx: L wrist fracture repair Smoking Hx: former smoker, quit several months ago Alcohol hx: occasional Family hx: denies family hx of cancer or bleeding disorders Oncologic Hx: prostate CA years ago, treated with ~7months chemotherapy ( treatment unclear) REVIEW OF SYSTEMS: CONSTITUTIONAL: Absent: fever, chills, diaphoresis, generalized weakness, malaise, loss of appetite, weight change HEENT: Absent: rhinorrhea, nasal congestion, throat pain, throat swelling, difficulty swallowing, mouth swelling, ear pain, eye pain, visual changes CARDIOVASCULAR: Absent: chest pain, syncope, palpitations, irregular heart rate, lightheadedness , peripheral edema RESPIRATORY: Absent: cough, shortness of breath, dyspnea with exertion, orthopnea, wheezing, stridor, hemoptysis GASTROINTESTINAL: Absent: abdominal pain, abdominal distension, nausea, vomiting, diarrhea, constipation, melena, hematochezia GENITOURINARY: Absent: dysuria, frequency, urgency, hesitancy, hematuria, flank pain, genital pain MUSCULOSKELETAL: pain Absent: myalgia, arthralgia, joint swelling, back pain, neck pain SKIN: Absent: rash, itching, pallor HEMATOLOGIC/IMMUNOLOGIC: Absent: easy bleeding, easy bruising, lymphadenopathy, frequent infections ENDOCRINE: Absent: unexplained weight gain, unexplained weight loss, heat intolerance, cold intolerance NEUROLOGIC: Absent: headache, focal weakness or paresthesias, dizziness, unsteady gait, seizure, mental status changes, bladder or bowel incontinence PSYCHIATRIC: Absent: anxiety, depression, suicidal or homicidal ideation, hallucinations. PHYSICAL EXAMINATION Vital Signs - 24 hr 07/25/19 07/25/19 07/25/19 09:00 15:13 18:00 Temperature 98.3 F 98.7 F Pulse Rate 100 H 100 H Respiratory 20 20 Rate Blood Pressure 133/65 136/67 O2 Sat by Pulse 99 Oximetry (%) 07/25/19 07/25/19 07/26/19 21:00 22:00 02:00 Temperature 98.5 F 98.1 F Pulse Rate 105 H 96 H Respiratory 20 20 Rate Blood Pressure 111/40 L 132/68 O2 Sat by Pulse 95 Oximetry (%) 07/26/19 04:00 Temperature 97.9 F Pulse Rate 98 H Respiratory 20 Rate Blood Pressure 142/67 O2 Sat by Pulse Oximetry (%) GENERAL: A&Ox3, no acute distress EYES: PERRLA, EOMI ENT: Moist mucus membranes NECK: No JVD LUNGS: CTA, no wheezes HEART: RRR, no murmurs BREAST: no masses, nodules palpated ABDOMEN: Soft, nontender, BS present MUSCULOSKELETAL: No CVA Tenderness EXTREMITIES: 2+ pulses, no edema. R arm in splint, painful to palpation NEUROLOGICAL: Cranial nerves II-XII intact. : no abnormalities Laboratory Results - last 24 hr 07/25/19 07/25/19 07/25/19 06:35 12:02 17:29 WBC 6.4 RBC 2.77 L Hgb 7.8 L Hct 22.5 L MCV 81.1 MCH 28.0 MCHC 34.5 RDW 16.1 H Plt Count 254 MPV 6.9 L POC Glucometer 197 123 07/25/19 07/26/19 07/26/19 21:30 06:25 07:10 WBC 6.0 RBC 2.54 L Hgb 7.1 L Hct 20.6 L MCV 80.9 MCH 27.8 MCHC 34.4 RDW 16.3 H Plt Count 236 MPV 6.7 L POC Glucometer 157 121 Active Medications Generic Name Dose Route Start Last Admin Trade Name Freq PRN Reason Stop Dose Admin Acetaminophen 1,000 mg 07/23/19 03:41 07/24/19 23:59 Tylenol - PO 1,000 mg Q6H PRN Administration PAIN LEVEL 1 - 3 Amlodipine Besylate 10 mg 07/23/19 22:00 07/25/19 21:31 Norvasc - PO 10 mg HS MOLLY Administration Atorvastatin Calcium 10 mg 07/23/19 09:15 07/25/19 21:31 Lipitor - PO 10 mg HS MOLLY Administration Cyclobenzaprine HCl 10 mg 07/23/19 10:00 07/25/19 21:31 Flexeril - PO 10 mg BID MOLLY Administration Docusate Sodium 100 mg 07/23/19 10:00 07/25/19 21:31 Colace - PO 100 mg BID MOLLY Administration Enoxaparin Sodium 40 mg 07/23/19 10:00 07/25/19 11:14 Lovenox - SQ 40 mg DAILY MOLLY Administration Insulin Aspart 1 vial 07/23/19 16:30 07/26/19 06:31 Novolog Vial Sliding Scale - SQ Not Given TIDAC [facility] Protocol Losartan Potassium 50 mg 07/23/19 10:00 07/25/19 11:15 Cozaar - PO 50 mg DAILY MOLLY Administration Oxycodone HCl 5 mg 07/23/19 03:41 07/24/19 18:10 Roxicodone - PO 5 mg Q3H PRN Administration PAIN LEVEL 4 - 6 Oxycodone HCl 10 mg 07/23/19 03:41 07/25/19 21:32 Roxicodone - PO 10 mg Q3H PRN Administration PAIN LEVEL 7 - 10 ASSESSMENT/PLAN: 64 year old male with a history of prostate CA (years ago), stage IV lung cancer with mets to the bone, adrenals, brain diagnosed 1 month ago, diabetes, hyperlipidemia presented to the hospital for intractible R arm pain; #Metastatic Lung CA: #Pathologic Fracture of R Humerus #Metastatic Lung CA: pathology of bronchial biopsy showed adenocarcinoma with cribriform and solid growth and lymphatic invasion; PDL-1 < 1%, TTF1 (-), Napsin (-), chromogranin (-), synaptophysin (-), NKX3 (-) -PET scan showed R lung malignancy metstatic to mediastinum, R neck, abdominal mesentery, left adrenal gland, bones and soft tissues -patient was ambulatory 2 weeks ago and now bedbound, will need to evaluated for cord compression vs paraneoplastic reasons of weakness, started decadron in the interim during evaluation -will get MRI Brain/C spine, T spine, L spine for weakness -RT consultation for stereotactic to brain lesion -neuro consultation Dr. Damon -d/w Dr. Underwood, patient may need to go for resection of solitary brain mass soon, will repeat MRI; per Dr. Underwood, no neurosurgical contraindication to ambulation #Pathologic Fracture of R humerus: discussed with Dr. Franklin, will manage conservatively and not surgically -pain control -physical therapy -will likely need to see orthopedic oncologist in the future Christian Ojeda, PGY3 Discussed with Dr. Syde Visit type - Emergency Visit Emergency Visit: No - New Patient This patient is new to me today: Yes Date on this admission: 07/26/19 - Critical Care Critical Care patient: No ATTENDING PHYSICIAN STATEMENT I saw and evaluated the patient. I reviewed the resident's note and discussed the case with the resident. I agree with the resident's findings and plan as documented. SUBJECTIVE: OBJECTIVE: ASSESSMENT AND PLAN:
--- NOTE | 2019-07-26 09:52 | PN ---
Teaching Attending Note Name of Resident: Christian Ojeda ATTENDING PHYSICIAN STATEMENT I saw and evaluated the patient. I reviewed the resident's note and discussed the case with the resident. I agree with the resident's findings and plan as documented. SUBJECTIVE: Patient seen and examined Metastatic adenca of lung with brain, bone, spine, adrenal mets. Pathologic fracture of right humerus Past history of Prostate ca. ROS- no headache, diplopia, epistaxis, dysphagia, hoarseness, change in voce, some hemoptysis, SOB, no chest pains, back pains- mid and lower back, 5 lb weight loss recently, no dysuria, hematuria, pyuria generalized weakness Last Vital Signs Temp Pulse Resp BP Pulse Ox 97.9 F 98 H 20 142/67 95 07/26/19 04:00 07/26/19 04:00 07/26/19 04:00 07/26/19 04:00 07/25/19 21:00 HEENT: CRISELDA, EOM Intact Oropharynx: No thrush, No mucositis Cor: RSR, No murmurs, No gallops Lungs: diminished breath sounds Abd: Soft, Normal bowel sounds, No organomegaly Ext:No significant edema RUE - splint Skin: No rashes, Integument intact CBC, BMP 07/26/19 07:10 07/26/19 07:20 Current Medications Generic Name Dose Route Start Last Admin Trade Name Freq PRN Reason Stop Dose Admin Acetaminophen 1,000 mg 07/23/19 03:41 07/24/19 23:59 Tylenol - PO 1,000 mg Q6H PRN Administration PAIN LEVEL 1 - 3 Amlodipine Besylate 10 mg 07/23/19 22:00 07/25/19 21:31 Norvasc - PO 10 mg HS MOLLY Administration Atorvastatin Calcium 10 mg 07/23/19 09:15 07/25/19 21:31 Lipitor - PO 10 mg HS MOLLY Administration Cyclobenzaprine HCl 10 mg 07/23/19 10:00 07/25/19 21:31 Flexeril - PO 10 mg BID MOLLY Administration Docusate Sodium 100 mg 07/23/19 10:00 07/25/19 21:31 Colace - PO 100 mg BID MOLLY Administration Enoxaparin Sodium 40 mg 07/23/19 10:00 07/25/19 11:14 Lovenox - SQ 40 mg DAILY MOLLY Administration Insulin Aspart 1 vial 07/23/19 16:30 07/26/19 06:31 Novolog Vial Sliding Scale - SQ Not Given TIDAC [facility] Protocol Losartan Potassium 50 mg 07/23/19 10:00 07/25/19 11:15 Cozaar - PO 50 mg DAILY MOLLY Administration Oxycodone HCl 5 mg 07/23/19 03:41 07/24/19 18:10 Roxicodone - PO 5 mg Q3H PRN Administration PAIN LEVEL 4 - 6 Oxycodone HCl 10 mg 07/23/19 03:41 07/25/19 21:32 Roxicodone - PO 10 mg Q3H PRN Administration PAIN LEVEL 7 - 10 Impression: 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 Tyson Would suggest transfusion of packed cells Administer magnesium Patient would be candidate for treatment at [facility]. OBJECTIVE: ASSESSMENT AND PLAN:
[2019-07-26] MEDS ORDERED: MAGNESIUM SULF 50% (8.12 MEQ/2 ML-1 GM VIAL) IVPB ONE (10:15)
[2019-07-26] MEDS: CYCLOBENZAPRINE HCL 10 MG TABLET (FP) PO SCH ×2 (10:55→21:55)
[2019-07-26] MEDS: oxyCODONE HCL 5 MG TABLET PO PRN ×2 (10:56→21:55)
[2019-07-26] MEDS: LOSARTAN POTASSIUM 50 MG TABLET (FP) PO SCH (10:58)
[2019-07-26] MEDS: DOCUSATE SODIUM 100 MG CAPSULE (FP) PO SCH ×2 (10:58→21:55)
--- NOTE | 2019-07-26 16:38 | PN ---
Teaching Attending Note Name of Resident: Kirsty Cm ATTENDING PHYSICIAN STATEMENT I saw and evaluated the patient. I reviewed the resident's note and discussed the case with the resident. I agree with the resident's findings and plan as documented. SUBJECTIVE: Patient looks comfortable, pain on repositioning, no pain when lying still OBJECTIVE: Vital Signs Temperature 98.2 F 07/26/19 15:27 Pulse Rate 101 H 07/26/19 15:27 Respiratory Rate 20 07/26/19 15:27 Blood Pressure 144/69 07/26/19 15:27 O2 Sat by Pulse Oximetry (%) 92 L 07/26/19 09:00 GENERAL: The patient is awake, alert, and fully oriented, in no acute distress except right humurus pain. HEAD: Normal with no signs of trauma. EYES: PERRL, extraocular movements intact, sclera anicteric, conjunctiva clear. ENT: Ears normal, oropharynx clear without exudates, moist mucous membranes. NECK: Trachea midline, full range of motion, supple. LUNGS: Breath sounds equal, clear to auscultation bilaterally, no wheezes, no crackles, no accessory muscle use. HEART: Regular rate and rhythm, S1, S2 without murmur, rub or gallop. ABDOMEN: Soft, NT,ND, normoactive bowel sounds, no guarding, no rebound, no hepatosplenomegaly, no masses. EXTREMITIES: 2+ pulses, warm, well-perfused, no edema. Right humurus fx. NEUROLOGICAL: Cranial nerves II through XII grossly intact. Normal speech, gait not observed. PSYCH: Normal mood, normal affect. SKIN: Warm, dry, normal turgor, no rashes or lesions noted CBCD WBC 6.0 K/mm3 (4.0-10.0) 07/26/19 07:10 RBC 2.54 M/mm3 (4.00-5.60) L 07/26/19 07:10 Hgb 7.1 GM/dL (11.7-16.9) L 07/26/19 07:10 Hct 20.6 % (35.4-49) L 07/26/19 07:10 MCV 80.9 fl (80-96) 07/26/19 07:10 MCHC 34.4 g/dl (32.0-35.9) 07/26/19 07:10 RDW 16.3 % (11.9-15.9) H 07/26/19 07:10 Plt Count 236 K/MM3 (134-434) 07/26/19 07:10 MPV 6.7 fl (7.5-11.1) L 07/26/19 07:10 CMP Sodium 133 mmol/L (136-145) L 07/26/19 07:20 Potassium 4.0 mmol/L (3.5-5.1) 07/26/19 07:20 Chloride 97 mmol/L (98-107) L 07/26/19 07:20 Carbon Dioxide 25 mmol/L (21-32) 07/26/19 07:20 Anion Gap 10 MMOL/L (8-16) 07/26/19 07:20 BUN 18.8 mg/dL (7-18) H 07/26/19 07:20 Creatinine 0.7 mg/dL (0.55-1.3) 07/26/19 07:20 Random Glucose 119 mg/dL (74-106) H 07/26/19 07:20 Calcium 9.8 mg/dL (8.5-10.1) 07/26/19 07:20 Total Bilirubin 1.0 mg/dL (0.2-1) 07/24/19 05:30 AST 35 U/L (15-37) 07/24/19 05:30 ALT 21 U/L (13-61) 07/24/19 05:30 Alkaline Phosphatase 133 U/L (45-117) H 07/24/19 05:30 Total Protein 6.6 g/dl (6.4-8.2) 07/24/19 05:30 Albumin 2.9 g/dl (3.4-5.0) L 07/24/19 05:30 Current Medications Generic Name Dose Route Start Last Admin Trade Name Freq PRN Reason Stop Dose Admin Acetaminophen 1,000 mg 07/23/19 03:41 07/24/19 23:59 Tylenol - PO 1,000 mg Q6H PRN Administration PAIN LEVEL 1 - 3 Amlodipine Besylate 10 mg 07/23/19 22:00 07/25/19 21:31 Norvasc - PO 10 mg HS MOLLY Administration Atorvastatin Calcium 10 mg 07/23/19 09:15 07/25/19 21:31 Lipitor - PO 10 mg HS MOLLY Administration Cyclobenzaprine HCl 10 mg 07/23/19 10:00 07/26/19 10:55 Flexeril - PO 10 mg BID MOLLY Administration Docusate Sodium 100 mg 07/23/19 10:00 07/26/19 10:58 Colace - PO 100 mg BID MOLLY Administration Insulin Aspart 1 vial 07/23/19 16:30 07/26/19 11:47 Novolog Vial Sliding Scale - SQ Not Given TIDAC [facility] Protocol Losartan Potassium 50 mg 07/23/19 10:00 07/26/19 10:58 Cozaar - PO 50 mg DAILY MOLLY Administration Oxycodone HCl 5 mg 07/23/19 03:41 07/24/19 18:10 Roxicodone - PO 5 mg Q3H PRN Administration PAIN LEVEL 4 - 6 Oxycodone HCl 10 mg 07/23/19 03:41 07/26/19 10:56 Roxicodone - PO 10 mg Q3H PRN Administration PAIN LEVEL 7 - 10 Home Medications Medication Instructions Recorded Losartan Potassium [Cozaar -] 50 mg PO DAILY 03/03/18 Simvastatin 20 mg PO DAILY 03/03/18 Amlodipine Besylate [Norvasc -] 10 mg PO HS #30 tablet 03/09/18 Sitagliptin Phosphate [Januvia] 100 mg PO DAILY 06/16/19 Cyclobenzaprine HCl 10 mg PO DAILY 07/23/19 Ergocalciferol (Vitamin D2) 50,000 unit PO WEEKLY 07/23/19 [Vitamin D2] Oxycodone HCl 5 mg PO TID 07/23/19 Tramadol HCl 50 mg PO BID 07/23/19 ASSESSMENT AND PLAN: Patient is a 64 y/o male with PMhx of HTN, HLP, prostate cancer, PAD s/p L iliac vessel angioplasty, PCI , h/o heavy smoking, recent diagnosis of lung cancer with mets to bone and brain who presented with pain in RUE trying to get up form his chair. He was found to have a spiral Fx of the R humerus # Acute R humerus Fx : pathologic Fx due to mets to the bone. out pt PET scan report reviewed, evidence of a lesion in R humerus. Dr. Franklin /neurosx/ oncologist on the case , suggested to wear the sling with the brace for 3 weeks . # H/o T2DM :cont with SSI and Januvia as an outpatient # H/o recent dx of diagnosis of lung cancer with Mets to brain and spine, and other sites, including R humerus. - He is scheduled to receive treatment at [place]. has close f/u with his oncologist and has an appointment with [facility] for further care , he will follow with his doctors at [facility] ,and with his and treating team. # HTN contolled : Norvasc and losartan continue # Elevated Alk phos, due to bone mets,. Nl abd exam . no tenderness. no need for US. # Acute hyponatrremia 136--136 now , on IVF 0.9NS and rfecheck the sodium prior to dc to rehab. DVT PX : Lovenox. possible rehab placement follow up with [facility] and oncologist as an outpatient, patient has an appointment with them
[2019-07-26] MEDS: DEXAMETHASONE SOD PHOSPHATE 4 MG/1 ML VIAL IVPUSH SCH (21:55)
[2019-07-26] MEDS: ATORVASTATIN CA 10 MG TABLET (FP) PO SCH (21:58)
[2019-07-26] MEDS: amLODIPine BESYLATE 10 MG TABLET (FP) PO SCH (21:58)
[2019-07-26] MEDS: POLYETHYLENE GLYCOL 3350 119 GM BTL PO SCH (21:59)
[2019-07-27] MEDS: DEXAMETHASONE SOD PHOSPHATE 4 MG/1 ML VIAL IVPUSH SCH ×3 (04:07→17:25)
[2019-07-27] MEDS ORDERED: INSULIN (NOVOLOG) ASPART 100 UNITS/ML 10ML VIAL ONE (07:06)
[2019-07-27] MEDS: INSULIN SLIDING SCALE (NOVOLOG) 1 VIAL SQ SCH ×4 (07:37→22:07)
--- NOTE | 2019-07-27 08:10 | CONS ---
DATE OF CONSULTATION: 07/26/2019 REFERRING PHYSICIAN: Jamal Syed MD REASON FOR CONSULTATION: Metastatic lung cancer. HISTORY OF PRESENT ILLNESS: Mr. Higgins is a 64-year-old gentleman with a history of prostate cancer, status post external beam radiation therapy 1-1/2 years ago, who presented with hemoptysis in June 2019, which led to the discovery of a right lower lobe lung mass associated with mediastinal and hilar lymphadenopathy and a 1-cm right frontal brain lesion associated with vasogenic edema. He was subsequently discharged from [facility] and underwent biopsy of the right lung mass ([facility]) which demonstrated adenocarcinoma. PET CT showed right infrahilar mass-like consolidation with right hilar and mediastinal lymph nodes, left inguinal lymph node, mesenteric nodules, prostatic uptake, multiple skeletal metastases in the spine, scapula, ribs, right proximal humerus, pelvis, thoracolumbar spine, as well as soft tissue implants in the musculature. He was about to proceed with systemic and immunotherapy with his oncologist, Dr. Borjas, in [place], but is now admitted with a right humerus pathologic fracture. His pain is being managed with analgesics. He was seen by the orthopedic service, who has recommended a brace. No surgical intervention is planned at this time. He is being considered for stereotactic radiosurgery to the solitary brain met at [facility]. CT scans of the spine showed multi-level osteolytic lesions with pathologic compression fractures at T5, L3, and L5; a right pleural effusion; right lung mass; mediastinal lymphadenopathy. A prior CT of the chest showed a 5-cm right lower lobe lung mass with lymphadenopathy. An MRI of the cervicothoracolumbar spine is awaited. Dr. Syed who has asked us to see patient to assist in further management as he is considering transfer of his care to [place]. Presently, he reports pain with any movement of the right upper extremity. He denies numbness or weakness in the left arm and both legs, changes in bowel or bladder function including incontinence and constipation. PAST MEDICAL HISTORY: Diabetes mellitus, hypertension. PAST SURGICAL HISTORY: Lung biopsy and repair of left wrist. ALLERGIES: PENICILLIN. CURRENT MEDICATIONS: Cozaar, Colace, Flexeril, Norvasc, Lipitor, insulin sliding scale, oxycodone p.r.n. SOCIAL HISTORY: A former smoker, 1 pack per day for over 40 years. He is , lives at home with his and son. He has a daughter in [place]. FAMILY HISTORY: Noncontributory. REVIEW OF SYSTEMS: Pain in right upper extremity as noted. Intermittent mild hemoptysis. Denies chest pain, shortness of breath, hoarseness, dysphagia, change in appetite, dizziness, double vision, headaches, nausea, vomiting. PHYSICAL EXAMINATION: General: Well-appearing male, appearing his chronological age, in no acute distress. Vital Signs: Stable, afebrile. HEENT: Normocephalic, atraumatic. Moist mucous membranes. Anicteric sclera. Clear oral cavity. Neck: No adenopathy. Chest: Clear bilaterally without axillary adenopathy. Cardiovascular: Regular. Abdomen: Soft, nontender, nondistended. Extremities: Right arm in brace. Left upper extremity and lower extremities mobile, without edema. Neurologic: Nonfocal in the 3 extremities. Sensation to light touch intact. RADIOLOGIC DATA: As noted above. PATHOLOGIC DATA: lung biopsy as noted above. IMPRESSION: Stage IV pulmonary adenocarcinoma with extensive extracranial metastases as well as a single brain metastasis. While neurosurgery was initially considered, now given the extensive extracranial disease and the deep- seated location, a role for stereotactic radiosurgery to control brain metastasis is very reasonable option with risk. I agree with MRI of the spine to rule out epidural extension that would benefit from surgery and/or radiation therapy. Updated brain MRI would be helpful. Postoperative radiation therapy to the right humerus fracture can be considered after surgical stabilization. Given the extent of bone displacement, we would recommend surgical stabilization prior to radiation therapy to optimize healing. Further consideration for systemic and immunotherapy options by medical oncology. I spoke with the patient and his niece this afternoon and they will let me know if they have additional questions and whether they wish to proceed with his treatment locally. Thank you for asking me to see this patient. ELISABETH ZEPEDA M.D. [id number] MTDD
[2019-07-27 09:34] LABS: HEMATOCRIT 27.5 % (35.4-49); HEMOGLOBIN 9.6 GM/dL (11.7-16.9); MCH 28.4 pg (25.7-33.7); PLATELET COUNT 224 K/MM3 (134-434); RDW 15.9 % (11.9-15.9); WHITE BLOOD COUNT 5.2 K/mm3 (4.0-10.0)
[2019-07-27 09:51] LABS: BLOOD UREA NITROGEN 21.6 mg/dL (7-18); CALCIUM 9.4 mg/dL (8.5-10.1); CREATININE 0.7 mg/dL (0.55-1.3); MAGNESIUM 1.9 mg/dL (1.8-2.4); POTASSIUM 4.2 mmol/L (3.5-5.1)
[2019-07-27] MEDS: oxyCODONE HCL 5 MG TABLET PO PRN (10:45)
[2019-07-27] MEDS: DOCUSATE SODIUM 100 MG CAPSULE (FP) PO SCH ×2 (10:45→22:28)
[2019-07-27] MEDS: LOSARTAN POTASSIUM 50 MG TABLET (FP) PO SCH (10:46)
[2019-07-27] MEDS: CYCLOBENZAPRINE HCL 10 MG TABLET (FP) PO SCH ×2 (10:46→22:28)
[2019-07-27] MEDS: POLYETHYLENE GLYCOL 3350 119 GM BTL PO SCH ×2 (10:47→22:29)
--- NOTE | 2019-07-27 11:18 | CONSULT ---
Consult - text type - Consultation Consultation Note: NEUROSURGERY CONSULTATION Segundo Higgins is a 64 year old Trin[place] male who was seen by me during a hospitalization in early June 2019 when he presented with a solitary Right frontal metastatic tumor of unknown primary with diffuse spinal metastatic disease. Given the need to establish tissue diagnosis, solitary lesion in the brain which was readily accessible and his high functional status, craniotomy for excision and establishment of a tissue diagnosis was discussed. Patient was discharged with plans for outpatient PET and further staging. He did not return for followup and was admitted this week with a pathological fracture in his Right humerus. Patient appears considerably more frail than when seen last month. In the interim, he has undergone biopsy of a superficial lesion and tissue diagnosis was established. This was done at an outside institution and he has been treated at at least four sites over the past few weeks. I spoke with Dr. Tyson at [facility] in detail about his case. Radiosurgery is planned for the solitary (when last checked) brain lesion. This would be appropriate given that tissue diagnosis has been established and a chemotherapy regimen is planned. Dr. Rakesh Franklin has addressed the pathological fracture and he has diffuse disease. There are multiple spine mets, however, he should be allowed to ambulate with an abdominal binder. Unfortunately, at this point, his disease has progressed to a point that open surgical resection is no longer a viable option in his care. A diagnosis has been established and a plan of treatment developed. His intracranial disease can be addressed with Radiosurgery/ Radiotherapy and his spine can be stabilized with an orthosis. No acute Neurosurgical intervention indicated.
--- NOTE | 2019-07-27 12:19 | PN ---
Progress Note (short form) - Note Progress Note: Seen in follow up. No new complaints this morning - pain controlled when not moving.. Surrounded by family. Meds reviewed. Current Medications Generic Name Dose Route Start Last Admin Trade Name Freq PRN Reason Stop Dose Admin Acetaminophen 1,000 mg 07/23/19 03:41 07/24/19 23:59 Tylenol - PO 1,000 mg Q6H PRN Administration PAIN LEVEL 1 - 3 Amlodipine Besylate 10 mg 07/23/19 22:00 07/26/19 21:58 Norvasc - PO 10 mg HS MOLLY Administration Atorvastatin Calcium 10 mg 07/23/19 09:15 07/26/19 21:58 Lipitor - PO 10 mg HS MOLLY Administration Cyclobenzaprine HCl 10 mg 07/23/19 10:00 07/27/19 10:46 Flexeril - PO 10 mg BID MOLLY Administration Dexamethasone Sodium Phosphate 4 mg 07/26/19 19:00 07/27/19 10:46 Decadron Injection - IVPUSH 4 mg Q8H-IV MOLLY Administration Docusate Sodium 100 mg 07/23/19 10:00 07/27/19 10:45 Colace - PO 100 mg BID MOLLY Administration Sodium Chloride 1,000 mls @ 50 mls/hr 07/27/19 12:15 Normal Saline - IV 07/28/19 12:05 ASDIR MOLLY Insulin Aspart 1 vial 07/23/19 16:30 07/27/19 11:56 Novolog Vial Sliding Scale - SQ 2 units TIDAC MOLLY Administration Protocol Losartan Potassium 50 mg 07/23/19 10:00 07/27/19 10:46 Cozaar - PO 50 mg DAILY MOLLY Administration Oxycodone HCl 5 mg 07/23/19 03:41 07/27/19 10:45 Roxicodone - PO 5 mg Q3H PRN Administration PAIN LEVEL 4 - 6 Polyethylene Glycol 17 gm 07/26/19 22:00 07/27/19 10:47 Miralax (For Daily Use) - PO 17 gm BID MOLLY Administration On exam: Last Vital Signs Temp Pulse Resp BP Pulse Ox 98.4 F 85 20 104/62 95 07/27/19 06:00 07/27/19 06:00 07/27/19 06:00 07/27/19 06:00 07/26/19 20:56 General: Lying in bed, appears comfortable. Extremities: no swelling, R arm in sling. Chest: breath sounds bilaterally, no wheeze or crackles Abdomen: Soft, no organomegaly, no masses. Tender lower abdomen. Neuro: Alert, oriented, non-focal. CVS: Normal sinus rhythm, S1, S2, no gallop or murmur. Labs reviewed: CBC, BMP 07/27/19 09:08 07/27/19 09:08 Assessment. Newly diagnosed metastatic lung cancer, with bone mets, who presents following pathological fracture R humerus. Ortho following - conservative Mx for now. Known to oncologist at [place] - family electing to transfer ongoing oncology management to [facility] with Dr Syed. Will await transfer of relevant data from - pathology reports, imaging etc. In interim would hold off on mobilization pending results of CT spine and clearance from otho. Pain management.
--- NOTE | 2019-07-27 12:28 | PN ---
Progress Note (short form) - Note Progress Note: ORTHOPEDIC SURGERY PROGRESS NOTE Department of Orthopedic Surgery SUBJECTIVE No acute events today. Denies chest pain, shortness of breath, or calf pain. No nausea or vomiting. Tolerating oral intake. Right arm pain controlled. Still having back pain. PHYSICAL EXAMINATION General: Alert, oriented, cooperative and no distress. Right Upper Extremity: Functional brace in place and intact; Patient in sling as well. Skin intact, improved swelling of arm, forearm and hand, no lesions, rashes or ulcers noted. Muscle mass equal and symmetric to contralateral side. No atrophy noted. No masses or effusions noted. No tenderness to palpation at hand wrist or forearm. + TTP at the humerus. Full passive and active ROM, free from pain of the elbow and wrist and fingers. M/R/U/MSK/AX motor intact; SILT distally; 2+ radial pulses; Cap refill brisk. Compartments soft and compressible. No signs of compartment syndrome. DVT Exam: No evidence of DVT seen on physical exam; No cords or calf tenderness ; No significant calf/ankle edema. Intake & Output 07/25/19 07/26/19 07/27/19 23:59 23:59 23:59 Intake Total 1940 590 450 Output Total 500 Balance 1940 590 -50 Intake: IV 900 0 100 Normal Saline - 1,000 ml 900 @ 75 mls/hr IV ASDIR MOLLY Rx#:[id number] saline lock 0 100 Oral 480 350 350 Oral Supplement 560 240 Output: Urine 500 Void 500 Other: Voiding Method Incontinent Incontinent # Unmeasured Voids Void 1 1 Bowel Movement No No Active Medications Generic Name Dose Route Start Last Admin Trade Name Freq PRN Reason Stop Dose Admin Acetaminophen 1,000 mg 07/23/19 03:41 07/24/19 23:59 Tylenol - PO 1,000 mg Q6H PRN Administration PAIN LEVEL 1 - 3 Amlodipine Besylate 10 mg 07/23/19 22:00 07/26/19 21:58 Norvasc - PO 10 mg HS MOLLY Administration Atorvastatin Calcium 10 mg 07/23/19 09:15 07/26/19 21:58 Lipitor - PO 10 mg HS MOLLY Administration Cyclobenzaprine HCl 10 mg 07/23/19 10:00 07/27/19 10:46 Flexeril - PO 10 mg BID MOLLY Administration Dexamethasone Sodium Phosphate 4 mg 07/26/19 19:00 07/27/19 10:46 Decadron Injection - IVPUSH 4 mg Q8H-IV MOLLY Administration Docusate Sodium 100 mg 07/23/19 10:00 07/27/19 10:45 Colace - PO 100 mg BID MOLLY Administration Sodium Chloride 1,000 mls @ 50 mls/hr 07/27/19 12:15 Normal Saline - IV 07/28/19 12:05 ASDIR MOLLY Insulin Aspart 1 vial 07/23/19 16:30 07/27/19 11:56 Novolog Vial Sliding Scale - SQ 2 units TIDAC MOLLY Administration Protocol Losartan Potassium 50 mg 07/23/19 10:00 07/27/19 10:46 Cozaar - PO 50 mg DAILY MOLLY Administration Oxycodone HCl 5 mg 07/23/19 03:41 07/27/19 10:45 Roxicodone - PO 5 mg Q3H PRN Administration PAIN LEVEL 4 - 6 Polyethylene Glycol 17 gm 07/26/19 22:00 07/27/19 10:47 Miralax (For Daily Use) - PO 17 gm BID MOLLY Administration Vital Signs (last) Temp Pulse Resp BP Pulse Ox 98.2 F 93 H 17 136/70 94 L 07/27/19 09:00 07/27/19 09:00 07/27/19 09:00 07/27/19 09:00 07/26/19 21:00 Laboratory (coagulation) PT with INR 14.10 SEC (9.7-13.0) H 07/22/19 23:34 Laboratory 07/27/19 09:08 07/27/19 09:08 ASSESSMENT AND PLAN Mr. Higgins is a 64 year old male with a right pathologic mid-distal third humeral shaft fracture - in functional brace. Post-reduction radiographs of right humerus show fractured humerus in acceptable position currently. - Pain control: Transition to oral pain medications, minimize narcotic use; avoid NSAIDs - DVT prophylaxis - Appreciate Spine surgery plan regarding thoracolumbar metastasis and pain - Ice/Elevation of right forearm and wrist. Ice to right humerus (not directly on skin) - Appreciate medical management (Nutrition optimization, decubitus precautions heel/sacrum, neuro-checks) - PT for RUE (non weight bearing); AROM of hand and fingers and elbow - Patient will stay in Delcid brace to RUE for next several weeks, with X- rays weekly for the first 3 weeks, and every 2-3 weeks after that until fracture healed. - All questions were answered. Thank you for involving our team in the care of this patient. - No further orthopedic surgical intervention at this time.
--- NOTE | 2019-07-27 13:32 | CONSULT ---
Consult - text type - Consultation Consultation Note: NEUROLOGY CONSULTATION is greatly appreciatd: Events and MRI images reviewed. Drs. Syed, Yasmine and Hayden's consults read and appreciated. Pt examined with his [id number] at the bedside. 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 Progressive, diffuse, musculoskeletal pain x 2 months with patient taking "Bottles and bottles of tylenol and advil. W/U in June showed a right cerebral metastasis and multiple cervical an thoracic mets. Now admitted with pathological fracture of theright humerus. In the interval, biopsy showed Adenocarcinoma of the lung. MRI of brain (06/18/19) deep right parietal met with edema. Possible right frontal cortical edema as well. Current MRI scans of C-, T- and LS-spines (all C-) show multiple cervical and thoracic mets with bone marrow edema but no collapse or epidural extension. JOEL: Right arm in sling. Normal neck ROM without tenderness NEURO: Awake,alert but slow to respond. Ox [facility], Jul 2019. No frontal release. Sparse, fluent speech Full king, No facial, gag OK No left drift. Symmetrical grasps and reflexes. Toes downgoing No Left FTN dystaxia Feels tuning fork in both feet. IMP: No obvious focality No signs of myelopathy. SUGGEST: Update MRI of Brain (C-/C+)- suspect multiple mets. If no recommended ChemoRx, whole brain RT might be the best Rx. Will discuss with Dr. Blake. Continue decadron -but mostly for pain control and the small amount of brain edema seen on 06/18/19. There is no suggestion of epidural extension to the spinal mets at this time although multiple levels of vertebral bone marrow edema are seen. These are concentrated (but not isolated to) the mid-cervical region (around C4 and 5) and mid-thoracic region (T4-6) if focal RT is considered. Continue pain Rx and symptomatic Rx. Thank you very much, Stef Damon MD
[2019-07-27] MEDS: SODIUM CHLORIDE 1,000 ML IV SCH (13:35)
--- NOTE | 2019-07-27 21:58 | PN ---
Progress Note (short form) - Note Progress Note: Patient is lying in bed with no acute distress, except when he moves his right arm. Vital Signs Temperature 98.0 F 07/27/19 18:00 Pulse Rate 98 H 07/27/19 18:00 Respiratory Rate 20 07/27/19 18:00 Blood Pressure 152/70 07/27/19 18:00 O2 Sat by Pulse Oximetry (%) 94 L 07/27/19 10:46 GENERAL: The patient is awake, alert, and fully oriented, in no acute distress except right humurus pain. HEAD: Normal with no signs of trauma. EYES: PERRL, extraocular movements intact, sclera anicteric, conjunctiva clear. ENT: Ears normal, oropharynx clear without exudates, moist mucous membranes. NECK: Trachea midline, full range of motion, supple. LUNGS: Breath sounds equal, clear to auscultation bilaterally, no wheezes, no crackles, no accessory muscle use. HEART: Regular rate and rhythm, S1, S2 without murmur, rub or gallop. ABDOMEN: Soft, NT,ND, normoactive bowel sounds, no guarding, no rebound, no hepatosplenomegaly, no masses. EXTREMITIES: 2+ pulses, warm, well-perfused, no edema. Right humurus fx. NEUROLOGICAL: Cranial nerves II through XII grossly intact. Normal speech, gait not observed. PSYCH: Normal mood, normal affect. SKIN: Warm, dry, normal turgor, no rashes or lesions noted CBCD WBC 5.2 K/mm3 (4.0-10.0) 07/27/19 09:08 RBC 3.40 M/mm3 (4.00-5.60) L 07/27/19 09:08 Hgb 9.6 GM/dL (11.7-16.9) L 07/27/19 09:08 Hct 27.5 % (35.4-49) L D 07/27/19 09:08 MCV 81.0 fl (80-96) 07/27/19 09:08 MCHC 35.0 g/dl (32.0-35.9) 07/27/19 09:08 RDW 15.9 % (11.9-15.9) 07/27/19 09:08 Plt Count 224 K/MM3 (134-434) 07/27/19 09:08 MPV 7.0 fl (7.5-11.1) L 07/27/19 09:08 CMP Sodium 130 mmol/L (136-145) L 07/27/19 09:08 Potassium 4.2 mmol/L (3.5-5.1) 07/27/19 09:08 Chloride 96 mmol/L (98-107) L 07/27/19 09:08 Carbon Dioxide 24 mmol/L (21-32) 07/27/19 09:08 Anion Gap 11 MMOL/L (8-16) 07/27/19 09:08 BUN 21.6 mg/dL (7-18) H 07/27/19 09:08 Creatinine 0.7 mg/dL (0.55-1.3) 07/27/19 09:08 Random Glucose 211 mg/dL (74-106) H 07/27/19 09:08 Calcium 9.4 mg/dL (8.5-10.1) 07/27/19 09:08 Total Bilirubin 1.0 mg/dL (0.2-1) 07/24/19 05:30 AST 35 U/L (15-37) 07/24/19 05:30 ALT 21 U/L (13-61) 07/24/19 05:30 Alkaline Phosphatase 133 U/L (45-117) H 07/24/19 05:30 Total Protein 6.6 g/dl (6.4-8.2) 07/24/19 05:30 Albumin 2.9 g/dl (3.4-5.0) L 07/24/19 05:30 Current Medications Generic Name Dose Route Start Last Admin Trade Name Bruna PRN Reason Stop Dose Admin Acetaminophen 1,000 mg 07/23/19 03:41 07/24/19 23:59 Tylenol - PO 1,000 mg Q6H PRN Administration PAIN LEVEL 1 - 3 Amlodipine Besylate 10 mg 07/23/19 22:00 07/26/19 21:58 Norvasc - PO 10 mg HS MOLLY Administration Atorvastatin Calcium 10 mg 07/23/19 09:15 07/26/19 21:58 Lipitor - PO 10 mg HS MOLLY Administration Cyclobenzaprine HCl 10 mg 07/23/19 10:00 07/27/19 10:46 Flexeril - PO 10 mg BID MOLLY Administration Dexamethasone Sodium Phosphate 4 mg 07/26/19 19:00 07/27/19 17:25 Decadron Injection - IVPUSH 4 mg Q8H-IV MOLLY Administration Docusate Sodium 100 mg 07/23/19 10:00 07/27/19 10:45 Colace - PO 100 mg BID MOLLY Administration Sodium Chloride 1,000 mls @ 50 mls/hr 07/27/19 12:15 07/27/19 13:35 Normal Saline - IV 07/28/19 12:05 50 mls/hr ASDIR MOLLY Administration Insulin Aspart 1 vial 07/23/19 16:30 07/27/19 17:26 Novolog Vial Sliding Scale - SQ 4 units TIDAC MOLLY Administration Protocol Losartan Potassium 50 mg 07/23/19 10:00 07/27/19 10:46 Cozaar - PO 50 mg DAILY MOLLY Administration Oxycodone HCl 5 mg 07/23/19 03:41 07/27/19 10:45 Roxicodone - PO 5 mg Q3H PRN Administration PAIN LEVEL 4 - 6 Polyethylene Glycol 17 gm 07/26/19 22:00 07/27/19 10:47 Miralax (For Daily Use) - PO 17 gm BID MOLLY Administration Home Medications Medication Instructions Recorded Losartan Potassium [Cozaar -] 50 mg PO DAILY 03/03/18 Simvastatin 20 mg PO DAILY 03/03/18 Amlodipine Besylate [Norvasc -] 10 mg PO HS #30 tablet 03/09/18 Sitagliptin Phosphate [Januvia] 100 mg PO DAILY 06/16/19 Cyclobenzaprine HCl 10 mg PO DAILY 07/23/19 Ergocalciferol (Vitamin D2) 50,000 unit PO WEEKLY 07/23/19 [Vitamin D2] Oxycodone HCl 5 mg PO TID 07/23/19 Tramadol HCl 50 mg PO BID 07/23/19 A/P: Patient is a 64yo male with newly diagnosed metastatic lung cancer, with bone mets, who presents following pathological fracture of R humerus. # Acute right humurus pathological fx: ortho on the case ,conservative Mx for now # Metastatic Lung cancer with bone mets: Patient wants to tx care to tee Syed' s service and wants to follow with Rtx oncologist. Patient is Known to oncologist at [facility] # H/o T2DM :cont with SSI and Januvia as an outpatient # HTN contolled : Norvasc and losartan continue # Acute hyponatrremia 136--130 now , on IVF 0.9NS and re-check the sodium in am DVT PX : Lovenox. I Visit type - Emergency Visit Emergency Visit: Yes ED Registration Date: 07/23/19 Care time: The patient presented to the Emergency Department on the above date and was hospitalized for further evaluation of their emergent condition. - New Patient This patient is new to me today: No - Critical Care Critical Care patient: No - Discharge Referral Referred to [facility] Med P.C.: No
[2019-07-27] MEDS: ATORVASTATIN CA 10 MG TABLET (FP) PO SCH (22:28)
[2019-07-27] MEDS: amLODIPine BESYLATE 10 MG TABLET (FP) PO SCH (22:28)
[2019-07-28] MEDS: oxyCODONE HCL 5 MG TABLET PO PRN ×5 (00:18→23:09)
[2019-07-28] MEDS: DEXAMETHASONE SOD PHOSPHATE 4 MG/1 ML VIAL IVPUSH SCH ×3 (02:01→17:44)
[2019-07-28] MEDS: SODIUM CHLORIDE 1,000 ML IV SCH (06:11)
[2019-07-28] MEDS: INSULIN SLIDING SCALE (NOVOLOG) 1 VIAL SQ SCH ×3 (06:18→17:42)
[2019-07-28 06:50] LABS: BASO % 0.1 % (0-2.0); HEMATOCRIT 26.7 % (35.4-49); HEMOGLOBIN 9.3 GM/dL (11.7-16.9); LYMPH % 8.2 % (8-40); MCH 28.6 pg (25.7-33.7); MCHC 34.9 g/dl (32.0-35.9); MEAN CELL VOLUME 81.7 fl (80-96); MONO % 4.7 % (3.8-10.2); PLATELET COUNT 226 K/MM3 (134-434); RBC 3.27 M/mm3 (4.00-5.60); RDW 15.9 % (11.9-15.9); WHITE BLOOD COUNT 8.1 K/mm3 (4.0-10.0)
[2019-07-28] MEDS ORDERED: INSULIN (NOVOLOG) ASPART 100 UNITS/ML 10ML VIAL ONE (07:09)
[2019-07-28 07:18] LABS: ALBUMIN 2.5 g/dl (3.4-5.0); BILIRUBIN,TOTAL 1.3 mg/dL (0.2-1); BLOOD UREA NITROGEN 19.2 mg/dL (7-18); CALCIUM 8.8 mg/dL (8.5-10.1); CREATININE 0.7 mg/dL (0.55-1.3); MAGNESIUM 1.8 mg/dL (1.8-2.4); PHOSPHOROUS 3.2 mg/dL (2.5-4.9); POTASSIUM 4.2 mmol/L (3.5-5.1)
[2019-07-28] MEDS ORDERED: PT OWN MED DRAWER 7, Y5N ONE (09:25)
[2019-07-28] MEDS: CYCLOBENZAPRINE HCL 10 MG TABLET (FP) PO SCH ×2 (09:34→23:09)
[2019-07-28] MEDS: DOCUSATE SODIUM 100 MG CAPSULE (FP) PO SCH ×2 (09:34→23:09)
[2019-07-28] MEDS: LOSARTAN POTASSIUM 50 MG TABLET (FP) PO SCH (09:34)
[2019-07-28] MEDS: POLYETHYLENE GLYCOL 3350 119 GM BTL PO SCH ×2 (09:36→23:10)
[2019-07-28 11:21] LABS: ANISOCYTOSIS 2+; MACROCYTOSIS 0; PLATELET ESTIMATE NORMAL
--- NOTE | 2019-07-28 13:20 | PN ---
Physical Exam: SUBJECTIVE: Patient seen and examined at the bedside, there were no acute events overnight. Per the patient he had some cough with blood yesterday but nothing overnight or today. OBJECTIVE: Vital Signs Period Temp Pulse Resp BP Sys/[place] Pulse Ox Last 24 Hr 97.4 F-98.0 F 86-98 18-20 136-154/69-82 94 GENERAL: The patient is awake, alert, and fully oriented, in no acute distress. EYES: PERRL bilateraly, EOMI ENT: Ears normal, nares patent, oropharynx clear without exudates, moist mucous membranes. NECK: Trachea midline, full range of motion, supple. LUNGS: Breath sounds equal, clear to auscultation bilaterally, no wheezes, no crackles, no accessory muscle use. HEART: Regular rate and rhythm, S1, S2 without murmur, rub or gallop. ABDOMEN: Soft, nontender, nondistended, normoactive bowel sounds, no guarding, no rebound, no hepatosplenomegaly, no masses. EXTREMITIES: 2+ pulses, warm, well-perfused, no edema. R arm braced. NEUROLOGICAL: Cranial nerves II through XII grossly intact. Normal speech, gait not observed. PSYCH: Normal mood, normal affect. SKIN: Warm, dry, normal turgor, no rashes or lesions noted Laboratory Results - last 24 hr 07/27/19 07/27/19 07/28/19 17:16 21:45 06:10 WBC 8.1 RBC 3.27 L Hgb 9.3 L Hct 26.7 L MCV 81.7 MCH 28.6 MCHC 34.9 RDW 15.9 Plt Count 226 MPV 7.0 L Absolute Neuts (auto) 7.0 Neutrophils % 87.0 H Neutrophils % (Manual) 85.0 H Band Neutrophils % 1.0 Lymphocytes % 8.2 D Lymphocytes % (Manual) 8.0 Monocytes % 4.7 Monocytes % (Manual) 3 L Eosinophils % 0.0 D Eosinophils % (Manual) 0.0 Basophils % 0.1 Basophils % (Manual) 0.0 Myelocytes % (Man) 0 Promyelocytes % (Man) 0 Blast Cells % (Manual) 0 Nucleated RBC % 0 Metamyelocytes 0 Hypochromia 0 Platelet Estimate Normal Platelet Comment Present Polychromasia 1+ Poikilocytosis 1+ Anisocytosis 2+ Microcytosis 1+ Macrocytosis 0 Spherocytes 1+ Acanthocytes (Spur) 1+ Sodium Potassium Chloride Carbon Dioxide Anion Gap BUN Creatinine Est GFR (CKD-EPI)AfAm Est GFR (CKD-EPI)NonAf POC Glucometer 279 322 Random Glucose Calcium Phosphorus Magnesium Total Bilirubin AST ALT Alkaline Phosphatase Total Protein Albumin 07/28/19 07/28/19 07/28/19 06:10 06:15 11:57 WBC RBC Hgb Hct MCV MCH MCHC RDW Plt Count MPV Absolute Neuts (auto) Neutrophils % Neutrophils % (Manual) Band Neutrophils % Lymphocytes % Lymphocytes % (Manual) Monocytes % Monocytes % (Manual) Eosinophils % Eosinophils % (Manual) Basophils % Basophils % (Manual) Myelocytes % (Man) Promyelocytes % (Man) Blast Cells % (Manual) Nucleated RBC % Metamyelocytes Hypochromia Platelet Estimate Platelet Comment Polychromasia Poikilocytosis Anisocytosis Microcytosis Macrocytosis Spherocytes Acanthocytes (Spur) Sodium 134 L Potassium 4.2 Chloride 100 Carbon Dioxide 22 Anion Gap 11 BUN 19.2 H Creatinine 0.7 Est GFR (CKD-EPI)AfAm 117.22 Est GFR (CKD-EPI)NonAf 101.14 POC Glucometer 222 249 Random Glucose 215 H Calcium 8.8 Phosphorus 3.2 Magnesium 1.8 Total Bilirubin 1.3 H AST 43 H ALT 25 Alkaline Phosphatase 112 Total Protein 6.0 L Albumin 2.5 L Active Medications Generic Name Dose Route Start Last Admin Trade Name Freq PRN Reason Stop Dose Admin Acetaminophen 1,000 mg 07/23/19 03:41 07/24/19 23:59 Tylenol - PO 1,000 mg Q6H PRN Administration PAIN LEVEL 1 - 3 Amlodipine Besylate 10 mg 07/23/19 22:00 07/27/19 22:28 Norvasc - PO 10 mg HS MOLLY Administration Atorvastatin Calcium 10 mg 07/23/19 09:15 07/27/19 22:28 Lipitor - PO 10 mg HS MOLLY Administration Cyclobenzaprine HCl 10 mg 07/23/19 10:00 07/28/19 09:34 Flexeril - PO 10 mg BID MOLLY Administration Dexamethasone Sodium Phosphate 4 mg 07/26/19 19:00 07/28/19 09:34 Decadron Injection - IVPUSH 4 mg Q8H-IV MOLLY Administration Docusate Sodium 100 mg 07/23/19 10:00 07/28/19 09:34 Colace - PO 100 mg BID MOLLY Administration Insulin Aspart 1 vial 07/23/19 16:30 07/28/19 12:00 Novolog Vial Sliding Scale - SQ 2 units TIDAC MOLLY Administration Protocol Losartan Potassium 50 mg 07/23/19 10:00 07/28/19 09:34 Cozaar - PO 50 mg DAILY MOLLY Administration Oxycodone HCl 5 mg 07/23/19 03:41 07/28/19 12:25 Roxicodone - PO 5 mg Q3H PRN Administration PAIN LEVEL 4 - 6 Polyethylene Glycol 17 gm 07/26/19 22:00 07/28/19 09:36 Miralax (For Daily Use) - PO Not Given BID MOLLY ASSESSMENT/PLAN: Patient is a 64-year-old male with PMHx of prostate cancer, recent lung cancer with metastasis to the bone, diabetes and hyperlipidemia who presented to the ED with right upper arm pain which started after pushing himself up onto his cane. # Humeral fracture - Orthopedic surgery consulted (Dr. Franklin), appreciate recommendations - Patient placed in arriaza functional brace for several weeks; patient to follow up outpatient with x-rays. - Per ortho: No surgical orthopedic management - Patient will stay in Arriaza brace for next several weeks, with X-rays weekly for the first 3 weeks , and every 2-3 weeks after that until fracture healed. - Patient will need X-rays taken at the hospital of his right humerus the day before his office visit. - Neurosurgery (Dr. Parham) consulted, appreciate recommendations - Patient has multiple spine mets, however, he should be allowed to ambulate with an abdominal binder. - Pain control: Transition to oral pain medications, minimize narcotic use; avoid NSAIDs - DVT prophylaxis - Ice/Elevation of right forearm and wrist. Ice to right humerus (not directly on skin) - PT for RUE (non weight bearing); AROM of hand and fingers and elbow > will assess patient after we receive recommendations from Neurosurgery - Consider consulted palliative care to help with pain management # Metastatic Lung cancer with bone mets - Patient wants to transfer care to Dr. Syed's service. Patient is Known to oncologist at [facility] (Dr. Preciado, will obtain records from her office) - Spoke to Dr. Ordoñez regarding patient's MRI which showed multiple small, bilateral non-hemorrhagic cerebral and cerebellar infarcts. There is still only 1 solitary brain mets however it appears to be a little larger and the area of edema surrounding it also seems slightly larger. Will notify Dr. Parham. # Hyponatremia - improved # Anemia - Hgb 7.9, m - transfusing 2 units today # Hyperlipidemia - Continue home simvastatin # Diabetes Mellitus - ISS - Will resume home Januvia at discharge # Hypertension - Continue home Losartan - Continue home Norvasc # DVT Prophylaxis - Lovenox 40 sq daily Visit type - Emergency Visit Emergency Visit: Yes ED Registration Date: 07/23/19 Care time: The patient presented to the Emergency Department on the above date and was hospitalized for further evaluation of their emergent condition. - New Patient This patient is new to me today: No - Critical Care Critical Care patient: No - Discharge Referral Referred to [facility] Med P.C.: No ATTENDING PHYSICIAN STATEMENT I saw and evaluated the patient. I reviewed the resident's note and discussed the case with the resident. I agree with the resident's findings and plan as documented. SUBJECTIVE: OBJECTIVE: ASSESSMENT AND PLAN:
--- NOTE | 2019-07-28 13:40 | PN ---
Progress Note (short form) - Note Progress Note: Seen in follow up. No new complaints this morning - pain controlled when not moving.. Needs assistance with eating - reports good appetite. Meds reviewed. Current Medications Generic Name Dose Route Start Last Admin Trade Name Freq PRN Reason Stop Dose Admin Acetaminophen 1,000 mg 07/23/19 03:41 07/24/19 23:59 Tylenol - PO 1,000 mg Q6H PRN Administration PAIN LEVEL 1 - 3 Amlodipine Besylate 10 mg 07/23/19 22:00 07/27/19 22:28 Norvasc - PO 10 mg HS MOLLY Administration Atorvastatin Calcium 10 mg 07/23/19 09:15 07/27/19 22:28 Lipitor - PO 10 mg HS MOLLY Administration Cyclobenzaprine HCl 10 mg 07/23/19 10:00 07/28/19 09:34 Flexeril - PO 10 mg BID MOLLY Administration Dexamethasone Sodium Phosphate 4 mg 07/26/19 19:00 07/28/19 09:34 Decadron Injection - IVPUSH 4 mg Q8H-IV MOLLY Administration Docusate Sodium 100 mg 07/23/19 10:00 07/28/19 09:34 Colace - PO 100 mg BID MOLLY Administration Insulin Aspart 1 vial 07/23/19 16:30 07/28/19 12:00 Novolog Vial Sliding Scale - SQ 2 units TIDAC MOLLY Administration Protocol Losartan Potassium 50 mg 07/23/19 10:00 07/28/19 09:34 Cozaar - PO 50 mg DAILY MOLLY Administration Oxycodone HCl 5 mg 07/23/19 03:41 07/28/19 12:25 Roxicodone - PO 5 mg Q3H PRN Administration PAIN LEVEL 4 - 6 Polyethylene Glycol 17 gm 07/26/19 22:00 07/28/19 09:36 Miralax (For Daily Use) - PO Not Given BID MOLLY On exam: Last Vital Signs Temp Pulse Resp BP Pulse Ox 97.4 F L 89 18 136/76 94 L 07/28/19 09:40 07/28/19 09:40 07/28/19 09:40 07/28/19 09:40 07/27/19 21:00 General: Lying in bed, appears comfortable. Extremities: no swelling, R arm in sling. Chest: breath sounds bilaterally, no wheeze or crackles Abdomen: Soft, no organomegaly, no masses. Tender lower abdomen. Neuro: Alert, oriented, non-focal. CVS: Normal sinus rhythm, S1, S2, no gallop or murmur. Labs reviewed: CBC, BMP 07/28/19 06:10 07/28/19 06:10 Assessment. Newly diagnosed metastatic lung cancer, with bone mets, who presents following pathological fracture R humerus. Ortho following - conservative Mx for now. Known to oncologist at [place] - family electing to transfer ongoing oncology management to [facility] with Dr Syed. Will await transfer of relevant data from - pathology reports, imaging etc. In interim would hold off on mobilization pending results of CT spine and clearance from otho. Pain management.
--- NOTE | 2019-07-28 19:49 | PN ---
Teaching Attending Note Name of Resident: Dacia Andre ATTENDING PHYSICIAN STATEMENT I saw and evaluated the patient. I reviewed the resident's note and discussed the case with the resident. I agree with the resident's findings and plan as documented. SUBJECTIVE: Patient is comfortable with no acute distress, No nausea or vomiting OBJECTIVE: Vital Signs Temperature 98.2 F 07/28/19 18:00 Pulse Rate 87 07/28/19 18:00 Respiratory Rate 20 07/28/19 18:00 Blood Pressure 143/77 07/28/19 18:00 O2 Sat by Pulse Oximetry (%) 92 L 07/28/19 09:00 GENERAL: The patient is awake, alert, and fully oriented, in no acute distress. HEAD: Normal with no signs of trauma. EYES: PERRL, extraocular movements intact, sclera anicteric, conjunctiva clear. ENT: Ears normal, oropharynx clear without exudates, moist mucous membranes. NECK: Trachea midline, full range of motion, supple. LUNGS: Breath sounds equal, clear to auscultation bilaterally, no wheezes, no crackles, no accessory muscle use. HEART: Regular rate and rhythm, S1, S2 without murmur, rub or gallop. ABDOMEN: Soft, NT,ND, normoactive bowel sounds, no guarding, no rebound, no hepatosplenomegaly, no masses. EXTREMITIES: 2+ pulses, warm, well-perfused, no edema. Right humurus fx.in a mobilizer. NEUROLOGICAL: Cranial nerves II through XII grossly intact. Normal speech, gait not observed. PSYCH: Normal mood, normal affect. SKIN: Warm, dry, normal turgor, no rashes or lesions noted CBCD WBC 8.1 K/mm3 (4.0-10.0) 07/28/19 06:10 RBC 3.27 M/mm3 (4.00-5.60) L 07/28/19 06:10 Hgb 9.3 GM/dL (11.7-16.9) L 07/28/19 06:10 Hct 26.7 % (35.4-49) L 07/28/19 06:10 MCV 81.7 fl (80-96) 07/28/19 06:10 MCHC 34.9 g/dl (32.0-35.9) 07/28/19 06:10 RDW 15.9 % (11.9-15.9) 07/28/19 06:10 Plt Count 226 K/MM3 (134-434) 07/28/19 06:10 MPV 7.0 fl (7.5-11.1) L 07/28/19 06:10 CMP Sodium 134 mmol/L (136-145) L 07/28/19 06:10 Potassium 4.2 mmol/L (3.5-5.1) 07/28/19 06:10 Chloride 100 mmol/L (98-107) 07/28/19 06:10 Carbon Dioxide 22 mmol/L (21-32) 07/28/19 06:10 Anion Gap 11 MMOL/L (8-16) 07/28/19 06:10 BUN 19.2 mg/dL (7-18) H 07/28/19 06:10 Creatinine 0.7 mg/dL (0.55-1.3) 07/28/19 06:10 Random Glucose 215 mg/dL (74-106) H 07/28/19 06:10 Calcium 8.8 mg/dL (8.5-10.1) 07/28/19 06:10 Total Bilirubin 1.3 mg/dL (0.2-1) H 07/28/19 06:10 AST 43 U/L (15-37) H 07/28/19 06:10 ALT 25 U/L (13-61) 07/28/19 06:10 Alkaline Phosphatase 112 U/L (45-117) 07/28/19 06:10 Total Protein 6.0 g/dl (6.4-8.2) L 07/28/19 06:10 Albumin 2.5 g/dl (3.4-5.0) L 07/28/19 06:10 Current Medications Generic Name Dose Route Start Last Admin Trade Name Freq PRN Reason Stop Dose Admin Acetaminophen 1,000 mg 07/23/19 03:41 07/24/19 23:59 Tylenol - PO 1,000 mg Q6H PRN Administration PAIN LEVEL 1 - 3 Amlodipine Besylate 10 mg 07/23/19 22:00 07/27/19 22:28 Norvasc - PO 10 mg HS MOLLY Administration Atorvastatin Calcium 10 mg 07/23/19 09:15 07/27/19 22:28 Lipitor - PO 10 mg HS MOLLY Administration Cyclobenzaprine HCl 10 mg 07/23/19 10:00 07/28/19 09:34 Flexeril - PO 10 mg BID MOLLY Administration Dexamethasone Sodium Phosphate 4 mg 07/26/19 19:00 07/28/19 17:44 Decadron Injection - IVPUSH 4 mg Q8H-IV MOLLY Administration Docusate Sodium 100 mg 07/23/19 10:00 07/28/19 09:34 Colace - PO 100 mg BID MOLLY Administration Insulin Aspart 1 vial 07/23/19 16:30 07/28/19 17:42 Novolog Vial Sliding Scale - SQ 4 units TIDAC [facility] Administration Protocol Losartan Potassium 50 mg 07/23/19 10:00 07/28/19 09:34 Cozaar - PO 50 mg DAILY MOLLY Administration Oxycodone HCl 5 mg 07/23/19 03:41 07/28/19 18:36 Roxicodone - PO 5 mg Q3H PRN Administration PAIN LEVEL 4 - 6 Polyethylene Glycol 17 gm 07/26/19 22:00 07/28/19 09:36 Miralax (For Daily Use) - PO Not Given BID [facility] Home Medications Medication Instructions Recorded RX: Losartan Potassium [Cozaar -] 50 mg PO DAILY 03/03/18 RX: Simvastatin 20 mg PO DAILY 03/03/18 RX: Amlodipine Besylate [Norvasc -] 10 mg PO HS #30 tablet 03/09/18 RX: Sitagliptin Phosphate [Januvia] 100 mg PO DAILY 06/16/19 RX: Cyclobenzaprine HCl 10 mg PO DAILY 07/23/19 RX: Ergocalciferol (Vitamin D2) 50,000 unit PO WEEKLY 07/23/19 [Vitamin D2] RX: Oxycodone HCl 5 mg PO TID 07/23/19 RX: Tramadol HCl 50 mg PO BID 07/23/19 ASSESSMENT AND PLAN: Patient is a 64yo male with newly diagnosed metastatic lung cancer, with bone mets, who presents following pathological fracture of R humerus. # Acute right humurus pathological fx: ortho on the case ,conservative Mx for now, in a immobilizer. # Metastatic Lung cancer with bone mets: Patient wants to tx care to dr. Syed' s service and wants to follow with Rtx oncologist in [facility]. Patient wants to tx her care from [place] # H/o T2DM :cont with SSI and Januvia as an outpatient # HTN contolled : Norvasc and losartan continue # Acute hyponatrremia 136--130-->134 now , on IVF 0.9NS and re-check the sodium in am , improving DVT PX : Lovenox.
[2019-07-28] MEDS: amLODIPine BESYLATE 10 MG TABLET (FP) PO SCH (23:08)
[2019-07-28] MEDS: ATORVASTATIN CA 10 MG TABLET (FP) PO SCH (23:08)
[2019-07-29] MEDS: DEXAMETHASONE SOD PHOSPHATE 4 MG/1 ML VIAL IVPUSH SCH ×3 (01:56→18:00)
[2019-07-29] MEDS: oxyCODONE HCL 5 MG TABLET PO PRN ×4 (02:02→21:25)
[2019-07-29] MEDS: INSULIN SLIDING SCALE (NOVOLOG) 1 VIAL SQ SCH ×3 (06:32→17:53)
[2019-07-29 07:33] LABS: HEMATOCRIT 28.8 % (35.4-49); MCH 28.9 pg (25.7-33.7); MCHC 34.9 g/dl (32.0-35.9); MEAN CELL VOLUME 82.8 fl (80-96); MEAN PLT VOLUME 7.4 fl (7.5-11.1); PLATELET COUNT 256 K/MM3 (134-434); RBC 3.48 M/mm3 (4.00-5.60); RDW 16.1 % (11.9-15.9); WHITE BLOOD COUNT 10.9 K/mm3 (4.0-10.0)
[2019-07-29 08:05] LABS: BLOOD UREA NITROGEN 20.2 mg/dL (7-18); CALCIUM 8.9 mg/dL (8.5-10.1); CREATININE 0.6 mg/dL (0.55-1.3); POTASSIUM 4.5 mmol/L (3.5-5.1)
[2019-07-29] MEDS: CYCLOBENZAPRINE HCL 10 MG TABLET (FP) PO SCH ×2 (09:13→21:25)
[2019-07-29] MEDS: LOSARTAN POTASSIUM 50 MG TABLET (FP) PO SCH (09:13)
[2019-07-29] MEDS: DOCUSATE SODIUM 100 MG CAPSULE (FP) PO SCH ×2 (09:13→21:25)
[2019-07-29] MEDS ORDERED: NAPH,MB-DB/K PH,MBDB POWDER PACKET PO ONE (09:30)
[2019-07-29] MEDS: POLYETHYLENE GLYCOL 3350 119 GM BTL PO SCH ×2 (11:22→21:25)
--- NOTE | 2019-07-29 15:51 | PN ---
Physical Exam: SUBJECTIVE: Patient seen and examined at the bedside. States he still has some pain and was still coughing up small amounts of bloody sputum this morning. OBJECTIVE: Vital Signs Period Temp Pulse Resp BP Sys/[place] Pulse Ox Last 24 Hr 97.7 F-98.4 F 76-88 18-20 138-162/69-82 92-95 GENERAL: The patient is awake, alert, and fully oriented, in no acute distress. EYES: PERRL bilateraly, EOMI ENT: Ears normal, nares patent, oropharynx clear without exudates, moist mucous membranes. NECK: Trachea midline, full range of motion, supple. LUNGS: Breath sounds equal, clear to auscultation bilaterally, no wheezes, no crackles, no accessory muscle use. HEART: Regular rate and rhythm, S1, S2 without murmur, rub or gallop. ABDOMEN: Soft, nontender, nondistended, normoactive bowel sounds, no guarding, no rebound, no hepatosplenomegaly, no masses. EXTREMITIES: 2+ pulses, warm, well-perfused, no edema. R arm braced. NEUROLOGICAL: Cranial nerves II through XII grossly intact. Normal speech, gait not observed. PSYCH: Normal mood, normal affect. SKIN: Warm, dry, normal turgor, no rashes or lesions noted Laboratory Results - last 24 hr 07/26/19 07/28/19 07/29/19 11:25 17:40 06:15 WBC 10.9 H RBC 3.48 L Hgb 10.0 L Hct 28.8 L MCV 82.8 MCH 28.9 MCHC 34.9 RDW 16.1 H Plt Count 256 MPV 7.4 L Sodium Potassium Chloride Carbon Dioxide Anion Gap BUN Creatinine Est GFR (CKD-EPI)AfAm Est GFR (CKD-EPI)NonAf POC Glucometer 286 Random Glucose Calcium Blood Type O POSITIVE Antibody Screen Negative Crossmatch See Detail 07/29/19 07/29/19 07/29/19 06:15 06:17 11:40 WBC RBC Hgb Hct MCV MCH MCHC RDW Plt Count MPV Sodium 134 L Potassium 4.5 Chloride 101 Carbon Dioxide 23 Anion Gap 10 BUN 20.2 H Creatinine 0.6 Est GFR (CKD-EPI)AfAm 124.89 Est GFR (CKD-EPI)NonAf 107.76 POC Glucometer 211 224 Random Glucose 200 H Calcium 8.9 Blood Type Antibody Screen Crossmatch Active Medications Generic Name Dose Route Start Last Admin Trade Name Freq PRN Reason Stop Dose Admin Acetaminophen 1,000 mg 07/23/19 03:41 07/24/19 23:59 Tylenol - PO 1,000 mg Q6H PRN Administration PAIN LEVEL 1 - 3 Amlodipine Besylate 10 mg 07/23/19 22:00 07/28/19 23:08 Norvasc - PO 10 mg HS MOLLY Administration Atorvastatin Calcium 10 mg 07/23/19 09:15 07/28/19 23:08 Lipitor - PO 10 mg HS MOLLY Administration Cyclobenzaprine HCl 10 mg 07/23/19 10:00 07/29/19 09:13 Flexeril - PO 10 mg BID MOLLY Administration Dexamethasone Sodium Phosphate 4 mg 07/26/19 19:00 07/29/19 09:13 Decadron Injection - IVPUSH 4 mg Q8H-IV MOLLY Administration Docusate Sodium 100 mg 07/23/19 10:00 07/29/19 09:13 Colace - PO 100 mg BID MOLLY Administration Insulin Aspart 1 vial 07/23/19 16:30 07/29/19 12:52 Novolog Vial Sliding Scale - SQ 2 units TIDAC MOLLY Administration Protocol Losartan Potassium 50 mg 07/23/19 10:00 07/29/19 09:13 Cozaar - PO 50 mg DAILY MOLLY Administration Oxycodone HCl 5 mg 07/29/19 14:11 07/29/19 14:31 Roxicodone - PO 5 mg Q3H PRN Administration PAIN LEVEL 4 - 6 Polyethylene Glycol 17 gm 07/26/19 22:00 07/29/19 11:22 Miralax (For Daily Use) - PO Not Given BID [facility] ASSESSMENT/PLAN: Patient is a 64-year-old male with PMHx of prostate cancer, recent lung cancer with metastasis to the bone, diabetes and hyperlipidemia who presented to the ED with right upper arm pain which started after pushing himself up onto his cane. # Humeral fracture - Orthopedic surgery consulted (Dr. Franklin), appreciate recommendations - Patient placed in arriaza functional brace for several weeks; patient to follow up outpatient with x-rays. - Per ortho: No surgical orthopedic management - Patient will stay in Arriaza brace for next several weeks, with X-rays weekly for the first 3 weeks , and every 2-3 weeks after that until fracture healed. - Patient will need X-rays taken at the hospital of his right humerus the day before his office visit. - Neurosurgery (Dr. Parhma) consulted, appreciate recommendations - Patient has multiple spine mets, however, he should be allowed to ambulate with an abdominal binder. - Pt somewhat deconditioned, will f/u with PT. Patient may requre SNF - Pain control: Transition to oral pain medications, minimize narcotic use; avoid NSAIDs - DVT prophylaxis - Ice/Elevation of right forearm and wrist. Ice to right humerus (not directly on skin) - PT for RUE (non weight bearing); AROM of hand and fingers and elbow > will assess patient after we receive recommendations from # Metastatic Lung cancer with bone mets - Patient wants to transfer care to Dr. Syed's service. Patient is Known to oncologist at [place] (Dr. Preciado, will obtain records from her office) - Spoke to Dr. Ordoñez regarding patient's MRI which showed multiple small, bilateral non-hemorrhagic cerebral and cerebellar infarcts. There is still only 1 solitary brain mets however it appears to be a little larger and the area of edema surrounding it also seems slightly larger. Will notify Dr. Parham. - On decadron 4mg Q8h - Per Dr. Cartagena's note - need to touch pace with [facility] pathology regarding molecular testing sent - carbo/alimta/pembrolizumab once brain mets treated -Radiosurgery for brain lesion - zometa for bone mets - start folic acid /B12 in anticipation for chemotherapyin future # Hyponatremia - improved # Anemia - Hgb 7.9, m - transfusing 2 units today # Hyperlipidemia - Continue home simvastatin # Diabetes Mellitus - ISS - Will resume home Januvia at discharge # Hypertension - Continue home Losartan - Continue home Norvasc # DVT Prophylaxis - Lovenox 40 sq daily Visit type - Emergency Visit Emergency Visit: Yes ED Registration Date: 07/23/19 Care time: The patient presented to the Emergency Department on the above date and was hospitalized for further evaluation of their emergent condition. - New Patient This patient is new to me today: No - Critical Care Critical Care patient: No - Discharge Referral Referred to [facility] Med P.C[facility] No ATTENDING PHYSICIAN STATEMENT I saw and evaluated the patient. I reviewed the resident's note and discussed the case with the resident. I agree with the resident's findings and plan as documented. SUBJECTIVE: OBJECTIVE: ASSESSMENT AND PLAN:
--- NOTE | 2019-07-29 16:56 | PN ---
Progress Note (short form) - Note Progress Note: Patient appears more comfortable than when last encountered. MRI demonstrates enlargement of the Frontal-Parietal lesion with no other lesions noted at this time. Course of care discussed with patient and family in detail. Spinal MRI exams reviewed and although there is suggestion of metastatic disease, there is no absolute contraindication to Physical Therapy. Patient is deconditioned and would benefit from mobilization. Patient will need to commence Chemotherapy soon and may be a candidate for SNF if he cannot be discharged. - Physical Therapy - GI/DVT prophylaxis - Abdominal binder for support - Radiosurgery for brain lesion - Will follow
--- NOTE | 2019-07-29 18:33 | PN ---
Teaching Attending Note Name of Resident: Eleanor Puga ATTENDING PHYSICIAN STATEMENT I saw and evaluated the patient. I reviewed the resident's note and discussed the case with the resident. I agree with the resident's findings and plan as documented. SUBJECTIVE: Patient is comfortable, sitting on the chair, family at bedside. OBJECTIVE: Vital Signs Temperature 97.7 F 07/29/19 14:56 Pulse Rate 88 07/29/19 14:56 Respiratory Rate 18 07/29/19 14:56 Blood Pressure 138/69 07/29/19 14:56 O2 Sat by Pulse Oximetry (%) 95 07/29/19 09:00 GENERAL: The patient is awake, alert, and fully oriented, in no acute distress. HEAD: Normal with no signs of trauma. EYES: PERRL, extraocular movements intact, sclera anicteric, conjunctiva clear. ENT: Ears normal, oropharynx clear without exudates, moist mucous membranes. NECK: Trachea midline, full range of motion, supple. LUNGS: Breath sounds equal, clear to auscultation bilaterally, no wheezes, no crackles, no accessory muscle use. HEART: Regular rate and rhythm, S1, S2 without murmur, rub or gallop. ABDOMEN: Soft, NT,ND, normoactive bowel sounds, no guarding, no rebound, no hepatosplenomegaly, no masses. EXTREMITIES: 2+ pulses, warm, well-perfused, no edema. Right humurus fx.in a mobilizer and a sling NEUROLOGICAL: Cranial nerves II through XII grossly intact. Normal speech, gait not observed. PSYCH: Normal mood, normal affect. SKIN: Warm, dry, normal turgor, no rashes or lesions noted CBCD WBC 10.9 K/mm3 (4.0-10.0) H 07/29/19 06:15 RBC 3.48 M/mm3 (4.00-5.60) L 07/29/19 06:15 Hgb 10.0 GM/dL (11.7-16.9) L 07/29/19 06:15 Hct 28.8 % (35.4-49) L 07/29/19 06:15 MCV 82.8 fl (80-96) 07/29/19 06:15 MCHC 34.9 g/dl (32.0-35.9) 07/29/19 06:15 RDW 16.1 % (11.9-15.9) H 07/29/19 06:15 Plt Count 256 K/MM3 (134-434) 07/29/19 06:15 MPV 7.4 fl (7.5-11.1) L 07/29/19 06:15 CMP Sodium 134 mmol/L (136-145) L 07/29/19 06:15 Potassium 4.5 mmol/L (3.5-5.1) 07/29/19 06:15 Chloride 101 mmol/L (98-107) 07/29/19 06:15 Carbon Dioxide 23 mmol/L (21-32) 07/29/19 06:15 Anion Gap 10 MMOL/L (8-16) 07/29/19 06:15 BUN 20.2 mg/dL (7-18) H 07/29/19 06:15 Creatinine 0.6 mg/dL (0.55-1.3) 07/29/19 06:15 Random Glucose 200 mg/dL (74-106) H 07/29/19 06:15 Calcium 8.9 mg/dL (8.5-10.1) 07/29/19 06:15 Total Bilirubin 1.3 mg/dL (0.2-1) H 07/28/19 06:10 AST 43 U/L (15-37) H 07/28/19 06:10 ALT 25 U/L (13-61) 07/28/19 06:10 Alkaline Phosphatase 112 U/L (45-117) 07/28/19 06:10 Total Protein 6.0 g/dl (6.4-8.2) L 07/28/19 06:10 Albumin 2.5 g/dl (3.4-5.0) L 07/28/19 06:10 Current Medications Generic Name Dose Route Start Last Admin Trade Name Freq PRN Reason Stop Dose Admin Acetaminophen 1,000 mg 07/23/19 03:41 07/24/19 23:59 Tylenol - PO 1,000 mg Q6H PRN Administration PAIN LEVEL 1 - 3 Amlodipine Besylate 10 mg 07/23/19 22:00 07/28/19 23:08 Norvasc - PO 10 mg HS MOLLY Administration Atorvastatin Calcium 10 mg 07/23/19 09:15 07/28/19 23:08 Lipitor - PO 10 mg HS MOLLY Administration Cyclobenzaprine HCl 10 mg 07/23/19 10:00 07/29/19 09:13 Flexeril - PO 10 mg BID MOLLY Administration Dexamethasone Sodium Phosphate 4 mg 07/26/19 19:00 07/29/19 18:00 Decadron Injection - IVPUSH 4 mg Q8H-IV MOLLY Administration Docusate Sodium 100 mg 07/23/19 10:00 07/29/19 09:13 Colace - PO 100 mg BID MOLLY Administration Insulin Aspart 1 vial 07/23/19 16:30 07/29/19 17:53 Novolog Vial Sliding Scale - SQ 4 units TIDAC MOLLY Administration Protocol Losartan Potassium 50 mg 07/23/19 10:00 07/29/19 09:13 Cozaar - PO 50 mg DAILY MOLLY Administration Oxycodone HCl 5 mg 07/29/19 14:11 07/29/19 14:31 Roxicodone - PO 5 mg Q3H PRN Administration PAIN LEVEL 4 - 6 Polyethylene Glycol 17 gm 07/26/19 22:00 07/29/19 11:22 Miralax (For Daily Use) - PO Not Given BID [facility] Home Medications Medication Instructions Recorded RX: Losartan Potassium [Cozaar -] 50 mg PO DAILY 03/03/18 RX: Simvastatin 20 mg PO DAILY 03/03/18 RX: Amlodipine Besylate [Norvasc -] 10 mg PO HS #30 tablet 03/09/18 RX: Sitagliptin Phosphate [Januvia] 100 mg PO DAILY 06/16/19 RX: Cyclobenzaprine HCl 10 mg PO DAILY 07/23/19 RX: Ergocalciferol (Vitamin D2) 50,000 unit PO WEEKLY 07/23/19 [Vitamin D2] RX: Oxycodone HCl 5 mg PO TID 07/23/19 RX: Tramadol HCl 50 mg PO BID 07/23/19 MRI demonstrates enlargement of the Frontal-Parietal lesion ASSESSMENT AND PLAN: Patient is a 64yo male with newly diagnosed metastatic lung cancer, with bone mets, who presents following pathological fracture of R humerus. # Acute right humurus pathological fx: ortho on the case ,conservative Mx for now, in a immobilizer. # Metastatic Lung cancer with bone mets: Patient wants to tx care to dr. Syed' s service and wants to follow with Rtx oncologist in [facility]. Patient wants to tx her care from [place]. Neurosurgery is on the case. of to have PT as per neuro; MRI demonstrates enlargement of the Frontal-Parietal lesion # H/o T2DM :cont with SSI and Januvia as an outpatient # HTN contolled : Norvasc and losartan continue # Acute hyponatrremia 136--130-->134 now , on IVF 0.9NS and re-check the sodium in am , improving DVT PX : Lovenox. rehab
--- NOTE | 2019-07-29 19:20 | PN ---
Progress Note (short form) - Note Progress Note: Patient seen and examined c/o dizziness Last Vital Signs Temp Pulse Resp BP Pulse Ox 97.9 F 90 18 152/83 95 07/29/19 18:47 07/29/19 18:47 07/29/19 18:47 07/29/19 18:47 07/29/19 09:00 Cor: RSR, No murmurs, No gallops Lungs: Clear to P&A Abd: Soft, Normal bowel sounds, No organomegaly Ext:No significant edema Abnormal Lab Results 07/26/19 07/29/19 07/29/19 11:25 06:15 06:15 WBC 10.9 H RBC 3.48 L Hgb 10.0 L Hct 28.8 L RDW 16.1 H MPV 7.4 L Sodium 134 L BUN 20.2 H Random Glucose 200 H Crossmatch See Detail Active Medications Acetaminophen (Tylenol -) 1,000 mg PO Q6H PRN PRN Reason: PAIN LEVEL 1 - 3 Last Admin: 07/24/19 23:59 Dose: 1,000 mg Amlodipine Besylate (Norvasc -) 10 mg PO HS [facility] Last Admin: 07/28/19 23:08 Dose: 10 mg Atorvastatin Calcium (Lipitor -) 10 mg PO HS [facility] Last Admin: 07/28/19 23:08 Dose: 10 mg Cyclobenzaprine HCl (Flexeril -) 10 mg PO BID [facility] Last Admin: 07/29/19 09:13 Dose: 10 mg Dexamethasone Sodium Phosphate (Decadron Injection -) 4 mg IVPUSH Q8H-IV [facility] Last Admin: 07/29/19 18:00 Dose: 4 mg Docusate Sodium (Colace -) 100 mg PO BID [facility] Last Admin: 07/29/19 09:13 Dose: 100 mg Insulin Aspart (Novolog Vial Sliding Scale -) 1 vial SQ TIDAC [facility]; Protocol Last Admin: 07/29/19 17:53 Dose: 4 units Losartan Potassium (Cozaar -) 50 mg PO DAILY [facility] Last Admin: 07/29/19 09:13 Dose: 50 mg Oxycodone HCl (Roxicodone -) 5 mg PO Q3H PRN PRN Reason: PAIN LEVEL 4 - 6 Last Admin: 07/29/19 14:31 Dose: 5 mg Polyethylene Glycol (Miralax (For Daily Use) -) 17 gm PO BID [facility] Last Admin: 07/29/19 11:22 Dose: Not Given A/P 64 y/o patient with newly diagnosed metastatic lung cancer, with bone mets, who presents following pathological fracture R humerus. Rt. 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 a/c for cerebral infarcts need to touch pace with [facility] pathology regarding molecular testing sent carbo/alimta/pembrolizumab once brain mets treated zometa for bone mets start folic acid /B12 in anticipation for chemotherapyin future
[2019-07-29] MEDS: amLODIPine BESYLATE 10 MG TABLET (FP) PO SCH (21:25)
[2019-07-29] MEDS: ATORVASTATIN CA 10 MG TABLET (FP) PO SCH (21:25)
[2019-07-30] MEDS: DEXAMETHASONE SOD PHOSPHATE 4 MG/1 ML VIAL IVPUSH SCH ×3 (01:00→17:46)
[2019-07-30] MEDS: oxyCODONE HCL 5 MG TABLET PO PRN ×2 (05:01→21:28)
[2019-07-30] MEDS: INSULIN SLIDING SCALE (NOVOLOG) 1 VIAL SQ SCH ×3 (06:02→17:42)
[2019-07-30 07:45] LABS: HEMATOCRIT 26.9 % (35.4-49); HEMOGLOBIN 9.4 GM/dL (11.7-16.9); MEAN CELL VOLUME 82.8 fl (80-96); MEAN PLT VOLUME 7.3 fl (7.5-11.1); PLATELET COUNT 238 K/MM3 (134-434); RBC 3.25 M/mm3 (4.00-5.60); RDW 16.1 % (11.9-15.9); WHITE BLOOD COUNT 9.8 K/mm3 (4.0-10.0)
[2019-07-30 08:21] LABS: BLOOD UREA NITROGEN 26.1 mg/dL (7-18); CALCIUM 8.7 mg/dL (8.5-10.1); CREATININE 0.8 mg/dL (0.55-1.3); POTASSIUM 4.5 mmol/L (3.5-5.1)
--- NOTE | 2019-07-30 09:17 | PN ---
Teaching Attending Note Name of Resident: Eleanor Puga ATTENDING PHYSICIAN STATEMENT I saw and evaluated the patient. I reviewed the resident's note and discussed the case with the resident. I agree with the resident's findings and plan as documented. SUBJECTIVE: Patient is sitting on the chair comfortably, family at bedside. OBJECTIVE: Vital Signs Temperature 97.4 F L 07/30/19 07:08 Pulse Rate 71 07/30/19 07:08 Respiratory Rate 18 07/30/19 07:08 Blood Pressure 156/77 07/30/19 07:08 O2 Sat by Pulse Oximetry (%) 96 07/29/19 21:00 GENERAL: The patient is awake, alert, and fully oriented, in no acute distress. HEAD: Normal with no signs of trauma. EYES: PERRL, extraocular movements intact, sclera anicteric, conjunctiva clear. ENT: Ears normal, oropharynx clear without exudates, moist mucous membranes. NECK: Trachea midline, full range of motion, supple. LUNGS: Breath sounds equal, clear to auscultation bilaterally, no wheezes, no crackles, no accessory muscle use. HEART: Regular rate and rhythm, S1, S2 without murmur, rub or gallop. ABDOMEN: Soft, NT,ND, normoactive bowel sounds, no guarding, no rebound, no hepatosplenomegaly, no masses. EXTREMITIES: 2+ pulses, warm, well-perfused, no edema. Right humurus fx.in a mobilizer and a sling NEUROLOGICAL: Cranial nerves II through XII grossly intact. Normal speech, gait not observed. PSYCH: Normal mood, normal affect. SKIN: Warm, dry, normal turgor, no rashes or lesions noted CBCD WBC 9.8 K/mm3 (4.0-10.0) 07/30/19 06:20 RBC 3.25 M/mm3 (4.00-5.60) L 07/30/19 06:20 Hgb 9.4 GM/dL (11.7-16.9) L 07/30/19 06:20 Hct 26.9 % (35.4-49) L 07/30/19 06:20 MCV 82.8 fl (80-96) 07/30/19 06:20 MCHC 35.0 g/dl (32.0-35.9) 07/30/19 06:20 RDW 16.1 % (11.9-15.9) H 07/30/19 06:20 Plt Count 238 K/MM3 (134-434) 07/30/19 06:20 MPV 7.3 fl (7.5-11.1) L 07/30/19 06:20 CMP Sodium 132 mmol/L (136-145) L 07/30/19 06:20 Potassium 4.5 mmol/L (3.5-5.1) 07/30/19 06:20 Chloride 99 mmol/L (98-107) 07/30/19 06:20 Carbon Dioxide 25 mmol/L (21-32) 07/30/19 06:20 Anion Gap 9 MMOL/L (8-16) 07/30/19 06:20 BUN 26.1 mg/dL (7-18) H 07/30/19 06:20 Creatinine 0.8 mg/dL (0.55-1.3) 07/30/19 06:20 Random Glucose 292 mg/dL (74-106) H 07/30/19 06:20 Calcium 8.7 mg/dL (8.5-10.1) 07/30/19 06:20 Total Bilirubin 1.3 mg/dL (0.2-1) H 07/28/19 06:10 AST 43 U/L (15-37) H 07/28/19 06:10 ALT 25 U/L (13-61) 07/28/19 06:10 Alkaline Phosphatase 112 U/L (45-117) 07/28/19 06:10 Total Protein 6.0 g/dl (6.4-8.2) L 07/28/19 06:10 Albumin 2.5 g/dl (3.4-5.0) L 07/28/19 06:10 Current Medications Generic Name Dose Route Start Last Admin Trade Name Freq PRN Reason Stop Dose Admin Acetaminophen 1,000 mg 07/23/19 03:41 07/24/19 23:59 Tylenol - PO 1,000 mg Q6H PRN Administration PAIN LEVEL 1 - 3 Amlodipine Besylate 10 mg 07/23/19 22:00 07/29/19 21:25 Norvasc - PO 10 mg HS MOLLY Administration Atorvastatin Calcium 10 mg 07/23/19 09:15 07/29/19 21:25 Lipitor - PO 10 mg HS MOLLY Administration Cyanocobalamin 1,000 mcg 07/30/19 10:00 Vitamin B12 Injection - IM 07/30/19 10:01 ONCE ONE Cyclobenzaprine HCl 10 mg 07/23/19 10:00 07/29/19 21:25 Flexeril - PO 10 mg BID MOLLY Administration Dexamethasone Sodium Phosphate 4 mg 07/26/19 19:00 07/30/19 01:00 Decadron Injection - IVPUSH 4 mg Q8H-IV MOLLY Administration Docusate Sodium 100 mg 07/23/19 10:00 07/29/19 21:25 Colace - PO 100 mg BID MOLLY Administration Folic Acid 1 mg 07/30/19 10:00 Folic Acid - PO DAILY [facility] Insulin Aspart 1 vial 07/23/19 16:30 07/30/19 06:02 Novolog Vial Sliding Scale - SQ 6 units TIDAC [facility] Administration Protocol Losartan Potassium 50 mg 07/23/19 10:00 07/29/19 09:13 Cozaar - PO 50 mg DAILY MOLLY Administration Oxycodone HCl 5 mg 07/29/19 14:11 07/30/19 05:01 Roxicodone - PO 5 mg Q3H PRN Administration PAIN LEVEL 4 - 6 Pantoprazole Sodium 40 mg 07/30/19 10:00 Protonix - PO DAILY [facility] Polyethylene Glycol 17 gm 07/26/19 22:00 07/29/19 21:25 Miralax (For Daily Use) - PO 17 gm BID MOLLY Administration Home Medications Medication Instructions Recorded Losartan Potassium [Cozaar -] 50 mg PO DAILY 03/03/18 Simvastatin 20 mg PO DAILY 03/03/18 Amlodipine Besylate [Norvasc -] 10 mg PO HS #30 tablet 03/09/18 Sitagliptin Phosphate [Januvia] 100 mg PO DAILY 06/16/19 Cyclobenzaprine HCl 10 mg PO DAILY 07/23/19 Ergocalciferol (Vitamin D2) 50,000 unit PO WEEKLY 07/23/19 [Vitamin D2] Oxycodone HCl 5 mg PO TID 07/23/19 Tramadol HCl 50 mg PO BID 07/23/19 MRI demonstrates enlargement of the Frontal-Parietal lesion ASSESSMENT AND PLAN: Patient is a 64yo male with newly diagnosed metastatic lung cancer, with bone mets, who presents following pathological fracture of R humerus. # Acute right humurus pathological fx: ortho on the case ,conservative Mx for now, in a immobilizer. # Metastatic Lung cancer with bone mets: Patient wants to tx care to dr. Syed' s service and wants to follow with Rtx oncologist in [facility]. Patient wants to tx her care from [place]. Neurosurgery is on the case. of to have PT as per neuro; MRI demonstrates enlargement of the Frontal-Parietal lesion as per who discussed therapy with the patient and the family: SRS, chemotherapy, and if control systemically, orthopedic procedure for RUE. also to taper to lower dose of steroids, To give nystatin, As per oncology : to institute lovenox 30mg sq Concern in face of untreated brain met and hemoptysis of Lovenox. However, patient has developed multiple [employer] and cerebellar infarcts over last month and is hypercoaguable from his malignancy. Will do ECHO of heart. Risk of vascular events is significant and therefore lovenox for now with careful monitoring. # Frontal-parietal enlargement of the betty ; neuro sx on the case, onc on the case # H/o T2DM :cont with SSI and Januvia as an outpatient # HTN contolled : Norvasc and losartan continue # Acute hyponatrremia 136--130-->134-->132 now , on IVF 0.9NS and re-check the sodium in am , improving DVT PX : Lovenox 30mg .
[2019-07-30] MEDS: CYCLOBENZAPRINE HCL 10 MG TABLET (FP) PO SCH ×2 (09:24→21:27)
[2019-07-30] MEDS: PANTOPRAZOLE 40 MG TABLET (FP) PO SCH (09:24)
[2019-07-30] MEDS: LOSARTAN POTASSIUM 50 MG TABLET (FP) PO SCH (09:25)
[2019-07-30] MEDS: DOCUSATE SODIUM 100 MG CAPSULE (FP) PO SCH ×2 (09:25→21:27)
[2019-07-30] MEDS: FOLIC ACID 1 MG TABLET (FP) PO SCH (09:25)
[2019-07-30] MEDS: POLYETHYLENE GLYCOL 3350 119 GM BTL PO SCH ×2 (09:25→21:40)
[2019-07-30] MEDS ORDERED: CYANOCOBALAMIN (VITAMIN B-12) 1000 MCG/1 ML VIAL IM ONE (10:00)
[2019-07-30] MEDS ORDERED: INSULIN (NOVOLOG) ASPART 100 UNITS/ML 10ML VIAL ONE (12:15)
[2019-07-30] MEDS: SODIUM CHLORIDE 1,000 ML IV SCH ×2 (12:18→21:44)
--- NOTE | 2019-07-30 12:43 | PN ---
Physical Exam: SUBJECTIVE: Patient seen and examined at the bedside. There were no acute events , patient still feeling dizzy on standing. Will continue with PT. OBJECTIVE: Vital Signs Period Temp Pulse Resp BP Sys/De La Torre Pulse Ox Last 24 Hr 97.1 F-98.0 F 71-92 18-18 138-156/69-83 96-96 GENERAL: The patient is awake, alert, and fully oriented, in no acute distress. EYES: PERRL bilateraly, EOMI ENT: Ears normal, nares patent, oropharynx clear without exudates, moist mucous membranes. NECK: Trachea midline, full range of motion, supple. LUNGS: Breath sounds equal, clear to auscultation bilaterally, no wheezes, no crackles, no accessory muscle use. HEART: Regular rate and rhythm, S1, S2 without murmur, rub or gallop. ABDOMEN: Soft, nontender, nondistended, normoactive bowel sounds, no guarding, no rebound, no hepatosplenomegaly, no masses. EXTREMITIES: 2+ pulses, warm, well-perfused, no edema. R arm braced. NEUROLOGICAL: Cranial nerves II through XII grossly intact. Normal speech, gait not observed. PSYCH: Normal mood, normal affect. SKIN: Warm, dry, normal turgor, no rashes or lesions noted Laboratory Results - last 24 hr 07/26/19 07/29/19 07/30/19 11:25 16:49 05:58 WBC RBC Hgb Hct MCV MCH MCHC RDW Plt Count MPV Sodium Potassium Chloride Carbon Dioxide Anion Gap BUN Creatinine Est GFR (CKD-EPI)AfAm Est GFR (CKD-EPI)NonAf POC Glucometer 285 312 Random Glucose Calcium Blood Type O POSITIVE Antibody Screen Negative Crossmatch See Detail 07/30/19 07/30/19 07/30/19 06:20 06:20 12:06 WBC 9.8 RBC 3.25 L Hgb 9.4 L Hct 26.9 L MCV 82.8 MCH 29.0 MCHC 35.0 RDW 16.1 H Plt Count 238 MPV 7.3 L Sodium 132 L Potassium 4.5 Chloride 99 Carbon Dioxide 25 Anion Gap 9 BUN 26.1 H Creatinine 0.8 Est GFR (CKD-EPI)AfAm 110.96 Est GFR (CKD-EPI)NonAf 95.74 POC Glucometer 283 Random Glucose 292 H Calcium 8.7 Blood Type Antibody Screen Crossmatch Active Medications Generic Name Dose Route Start Last Admin Trade Name Freq PRN Reason Stop Dose Admin Acetaminophen 1,000 mg 07/23/19 03:41 07/24/19 23:59 Tylenol - PO 1,000 mg Q6H PRN Administration PAIN LEVEL 1 - 3 Amlodipine Besylate 10 mg 07/23/19 22:00 07/29/19 21:25 Norvasc - PO 10 mg HS MOLLY Administration Atorvastatin Calcium 10 mg 07/23/19 09:15 07/29/19 21:25 Lipitor - PO 10 mg HS MOLLY Administration Cyclobenzaprine HCl 10 mg 07/23/19 10:00 07/30/19 09:24 Flexeril - PO 10 mg BID MOLLY Administration Dexamethasone Sodium Phosphate 4 mg 07/26/19 19:00 07/30/19 09:25 Decadron Injection - IVPUSH 4 mg Q8H-IV MOLLY Administration Docusate Sodium 100 mg 07/23/19 10:00 07/30/19 09:25 Colace - PO 100 mg BID MOLLY Administration Folic Acid 1 mg 07/30/19 10:00 07/30/19 09:25 Folic Acid - PO 1 mg DAILY MOLLY Administration Sodium Chloride 1,000 mls @ 50 mls/hr 07/30/19 09:30 07/30/19 12:18 Normal Saline - IV 07/31/19 05:29 50 mls/hr ASDIR MOLLY Administration Insulin Aspart 1 vial 07/23/19 16:30 07/30/19 12:17 Novolog Vial Sliding Scale - SQ 4 units TIDAC MOLLY Administration Protocol Losartan Potassium 50 mg 07/23/19 10:00 07/30/19 09:25 Cozaar - PO 50 mg DAILY MOLLY Administration Oxycodone HCl 5 mg 07/29/19 14:11 07/30/19 05:01 Roxicodone - PO 5 mg Q3H PRN Administration PAIN LEVEL 4 - 6 Pantoprazole Sodium 40 mg 07/30/19 10:00 07/30/19 09:24 Protonix - PO 40 mg DAILY MOLLY Administration Polyethylene Glycol 17 gm 07/26/19 22:00 07/30/19 09:25 Miralax (For Daily Use) - PO 17 gm BID MOLLY Administration ASSESSMENT/PLAN: Patient is a 64-year-old male with PMHx of prostate cancer, recent lung cancer with metastasis to the bone, diabetes and hyperlipidemia who presented to the ED with right upper arm pain which started after pushing himself up onto his cane. # Metastatic Lung cancer with bone mets - Spoke to Dr. Ordoñez regarding patient's MRI which showed multiple small, bilateral non-hemorrhagic cerebral and cerebellar infarcts. There is still only 1 solitary brain mets however it appears to be a little larger and the area of edema surrounding it also seems slightly larger. Will notify Dr. Parham. -Heme following, Dr. Syed, appreciate recommendations -molecular studies pending from [facility] -taper decadron to 4mg q12 end of day , then taper down to 4mg daily for 2 days starting Monday, then stop Monday. -starting lovenox 30 for prophylaxis -RT consultation for stereotactic to brain lesion -considering proceeding with SRS to single brain met prior to commencing systemic tx which has been discussed by Dr. Syed -neuro consultation Dr. Damon appreciated -will attempt to get port placed for chemotherapy -echo ordered to assess for malignant neoplastic vegetations as causes of cerebral infarct # Humeral fracture - Orthopedic surgery consulted (Dr. Franklin), appreciate recommendations - Patient placed in arriaza functional brace for several weeks; patient to follow up outpatient with x-rays. - Per ortho: No surgical orthopedic management - Patient will stay in Arriaza brace for next several weeks, with X-rays weekly for the first 3 weeks , and every 2-3 weeks after that until fracture healed. - Patient will need X-rays taken at the hospital of his right humerus the day before his office visit. - Neurosurgery (Dr. Parham) consulted, appreciate recommendations - Patient has multiple spine mets, however, he should be allowed to ambulate with an abdominal binder. - Pain control: Transition to oral pain medications, minimize narcotic use; avoid NSAIDs - DVT prophylaxis - Ice/Elevation of right forearm and wrist. Ice to right humerus (not directly on skin) - PT for RUE (non weight bearing); AROM of hand and fingers and elbow > will assess patient after we receive recommendations from Neurosurgery - Consider consulted palliative care to help with pain management # Hyponatremia - improved # Anemia - Hgb 7.9, m - transfusing 2 units today # Hyperlipidemia - Continue home simvastatin # Diabetes Mellitus - ISS - Will resume home Januvia at discharge # Hypertension - Continue home Losartan - Continue home Norvasc # DVT Prophylaxis - Lovenox 30 sq daily Visit type - Emergency Visit Emergency Visit: Yes ED Registration Date: 07/23/19 Care time: The patient presented to the Emergency Department on the above date and was hospitalized for further evaluation of their emergent condition. - New Patient This patient is new to me today: No - Critical Care Critical Care patient: No - Discharge Referral Referred to [facility] No ATTENDING PHYSICIAN STATEMENT I saw and evaluated the patient. I reviewed the resident's note and discussed the case with the resident. I agree with the resident's findings and plan as documented. SUBJECTIVE: OBJECTIVE: ASSESSMENT AND PLAN:
--- NOTE | 2019-07-30 13:41 | CONSULT ---
Consult - text type - Consultation Consultation Note: NEUROLOGY PROGRESS: Events reviewed and discussed with staff and HAZEL Mclaughlin. [id number] at bedside aiding in history. MRI of brain C+/C- done 07/28/19 compared to prior study 06/18/19 (reviewed) reveals interval development of R periventricular lesion. Also solitary R frontal neoplastic lesion noted and slightly increased with edema. Small, round discrete (5mm) right cerebellar cortical T2 lesion (content is similar to water) suggesting artifact or tiny encephalomalacia, not CVA S/P TPBC 2 units 07/26/19. C/O low back pain with radiation into left lateral thigh, worse with prolonged sitting and at nighttime. Has started pain management, which has helped, however now four days without BM. Also ambulated with PT with walker and no pain while walking. No history suggesting history of paroxysmal afib or arrythmia. BP 150s/70s without orthostasic changes. MCV= 82.8. NA 132-143. JOEL: R arm in sling. On O2 via N/C NEURO: Speech sparse, but fluent. EOM's full without nystagmus. Full king. No facial. No drift. Strength normal. Reflexes normal but reduced AJ's. Toes downgoing. Min reduced vibration toes. Romberg +/- Normal stride. Able to walk on heels, toes. Impression: Non-focal neurological exam Lung adenocarcinoma with brain and bone mets (vascular vs. early mets)- however, No Lumbosacral met seen to explain left lateral thigh pain ? Possible underlying diabetic peripheral neuropathy Suggest: Continue Orthostatic BP's Check Fe++, TIBC, Ferritin Cardiology eval appreciated for cardioembolic source to require AC - doubt embolic CVA Continue Rx as per Oncology and Whole brain RT for Brain mets. Symptomatic Rx for pain and sleep but would try Pramipexole 0.25 mg HS, especially if low Fe++ or Ferritin is found. Thank you very much, Stef Damon MD
[2019-07-30 15:12] VITALS: BMI 21.9
--- NOTE | 2019-07-30 16:17 | PN ---
Physical Exam: SUBJECTIVE: Patient seen and examined OBJECTIVE: Vital Signs Period Temp Pulse Resp BP Sys/De La Torre Pulse Ox Last 24 Hr 97.1 F-98.0 F 71-92 18-18 144-156/75-83 96-96 GENERAL: A&Ox3, no acute distress EYES: PERRLA, EOMI ENT: Moist mucus membranes LUNGS: CTA, no wheezes HEART: RRR, no murmurs ABDOMEN: Soft, nontender, BS present EXTREMITIES: 2+ pulses, no edema. R arm in splint, painful to palpation Laboratory Results - last 24 hr 07/26/19 07/29/19 07/30/19 11:25 16:49 05:58 WBC RBC Hgb Hct MCV MCH MCHC RDW Plt Count MPV Sodium Potassium Chloride Carbon Dioxide Anion Gap BUN Creatinine Est GFR (CKD-EPI)AfAm Est GFR (CKD-EPI)NonAf POC Glucometer 285 312 Random Glucose Calcium Blood Type O POSITIVE Antibody Screen Negative Crossmatch See Detail 07/30/19 07/30/19 07/30/19 06:20 06:20 12:06 WBC 9.8 RBC 3.25 L Hgb 9.4 L Hct 26.9 L MCV 82.8 MCH 29.0 MCHC 35.0 RDW 16.1 H Plt Count 238 MPV 7.3 L Sodium 132 L Potassium 4.5 Chloride 99 Carbon Dioxide 25 Anion Gap 9 BUN 26.1 H Creatinine 0.8 Est GFR (CKD-EPI)AfAm 110.96 Est GFR (CKD-EPI)NonAf 95.74 POC Glucometer 283 Random Glucose 292 H Calcium 8.7 Blood Type Antibody Screen Crossmatch Active Medications Generic Name Dose Route Start Last Admin Trade Name Freq PRN Reason Stop Dose Admin Acetaminophen 1,000 mg 07/23/19 03:41 07/24/19 23:59 Tylenol - PO 1,000 mg Q6H PRN Administration PAIN LEVEL 1 - 3 Amlodipine Besylate 10 mg 07/23/19 22:00 07/29/19 21:25 Norvasc - PO 10 mg HS MOLLY Administration Atorvastatin Calcium 10 mg 07/23/19 09:15 07/29/19 21:25 Lipitor - PO 10 mg HS MOLLY Administration Cyclobenzaprine HCl 10 mg 07/23/19 10:00 07/30/19 09:24 Flexeril - PO 10 mg BID MOLLY Administration Dexamethasone Sodium Phosphate 4 mg 07/30/19 16:15 Decadron Injection - IVPUSH Q12H MOLLY Docusate Sodium 100 mg 07/23/19 10:00 07/30/19 09:25 Colace - PO 100 mg BID MOLLY Administration Enoxaparin Sodium 30 mg 07/30/19 16:15 Lovenox - SQ DAILY MOLLY Folic Acid 1 mg 07/30/19 10:00 07/30/19 09:25 Folic Acid - PO 1 mg DAILY MOLLY Administration Sodium Chloride 1,000 mls @ 50 mls/hr 07/30/19 09:30 07/30/19 12:18 Normal Saline - IV 07/31/19 05:29 50 mls/hr ASDIR MOLLY Administration Insulin Aspart 1 vial 07/23/19 16:30 07/30/19 12:17 Novolog Vial Sliding Scale - SQ 4 units TIDAC MOLLY Administration Protocol Losartan Potassium 50 mg 07/23/19 10:00 07/30/19 09:25 Cozaar - PO 50 mg DAILY MOLLY Administration Oxycodone HCl 5 mg 07/29/19 14:11 07/30/19 05:01 Roxicodone - PO 5 mg Q3H PRN Administration PAIN LEVEL 4 - 6 Pantoprazole Sodium 40 mg 07/30/19 10:00 07/30/19 09:24 Protonix - PO 40 mg DAILY MOLLY Administration Polyethylene Glycol 17 gm 07/26/19 22:00 07/30/19 09:25 Miralax (For Daily Use) - PO 17 gm BID MOLLY Administration ASSESSMENT/PLAN: 64 year old male with a history of prostate CA (years ago), stage IV lung cancer with mets to the bone, adrenals, brain diagnosed 1 month ago, diabetes, hyperlipidemia presented to the hospital for intractible R arm pain; #Metastatic Lung CA: #Pathologic Fracture of R Humerus #Metastatic Lung CA: pathology of bronchial biopsy showed adenocarcinoma with cribriform and solid growth and lymphatic invasion; PDL-1 < 1%, TTF1 (-), Napsin (-), chromogranin (-), synaptophysin (-), NKX3 (-) -PET scan showed R lung malignancy metstatic to mediastinum, R neck, abdominal mesentery, left adrenal gland, bones and soft tissues -MRI shows interval increase in size of lesion + small bilateral infarcts, no cord compression on MRI -molecular studies pending from [facility], would need to call back pathology department for results in near future -taper decadron to 4mg q12 end of day , then taper down to 4mg daily for 2 days starting Monday, then stop Monday. -starting lovenox 30 for prophylaxis, benefits due to hypercoagulable state from neoplastic burden outweigh risks of bleeding -RT consultation for stereotactic to brain lesion -neuro consultation Dr. Damon appreciated -will attempt to get port placed for chemotherapy -echo ordered to assess for malignant neoplastic vegetations as causes of cerebral infarct #Pathologic Fracture of R humerus: discussed with Dr. Franklin, will manage conservatively and not surgically -pain control -physical therapy Christian Ojeda, PGY3 Discussed with Dr. Syed Visit type - Emergency Visit Emergency Visit: No - New Patient This patient is new to me today: No - Critical Care Critical Care patient: No ATTENDING PHYSICIAN STATEMENT I saw and evaluated the patient. I reviewed the resident's note and discussed the case with the resident. I agree with the resident's findings and plan as documented. SUBJECTIVE: OBJECTIVE: ASSESSMENT AND PLAN:
--- NOTE | 2019-07-30 16:52 | PN ---
Teaching Attending Note Name of Resident: Christian Ojeda ATTENDING PHYSICIAN STATEMENT I saw and evaluated the patient. I reviewed the resident's note and discussed the case with the resident. I agree with the resident's findings and plan as documented. SUBJECTIVE: Patient seen and examined More comfortable and less pain Met with fammily- sister, , daughter in attendance . Discussed insatutio of therapy SRS, chemotherapy, and if control systemically, orthopedic procedure for RUE. In interim, to taper to lower dose of steroids, To give nystatin, To institute lovenox Concern in face of untreated brain met and hemoptysis of Lovenox. However, patient has developed multiple [employer] and cerebellar infarcts over last month and is hypercoaguable from his malignancy. Will do ECHO of heart. Risk of vascular events is significant and therefore lovenox for now with careful monitoring. OBJECTIVE: ASSESSMENT AND PLAN:
[2019-07-30] MEDS: ENOXAPARIN NA (PORCINE) 30 MG/0.3 ML DISP.SYRIN SQ SCH (17:45)
--- NOTE | 2019-07-30 20:55 | PN ---
Progress Note (short form) - Note Progress Note: Radiation Oncology No new neurologic complaints. Pain in lower spine and right arm. Right arm in brace. Otherwise nonfocal. MRI brain and spine reviewed. Mildly enlarged right frontal lesion with edema. No midline shift. Spinal mets without cord compromise. S1 epidural extension. Impression: Lung ADCA with brain and bone mets, pathologic right humerus fracture With patients and family present, discussed proceeding with SRS to single brain met prior to commencing systemic tx which has been discussed by Dr. Syed. Reviewed risks, benefits and logistics of tx at [facility]. He will likely proceed after he discusses with his son. May also consider palliative RT to sacral epidural met for pain control and neurologic stability. Will be a candidate for RT to right humerus after surgical stabilization to optimize healing. Plan: Await family decision. Will arrange outpatient brain SRS. Systemic therapy to follow.
[2019-07-30] MEDS: ATORVASTATIN CA 10 MG TABLET (FP) PO SCH (21:27)
[2019-07-30] MEDS: amLODIPine BESYLATE 10 MG TABLET (FP) PO SCH (21:28)
[2019-07-31] MEDS: oxyCODONE HCL 5 MG TABLET PO PRN (01:57)
[2019-07-31] MEDS ORDERED: oxyCODONE HCL 5 MG TABLET PO ONE ×2 (04:48→07:15)
[2019-07-31] MEDS: DEXAMETHASONE SOD PHOSPHATE 4 MG/1 ML VIAL IVPUSH SCH ×2 (04:50→16:15)
[2019-07-31] MEDS: ACETAMINOPHEN 500 MG TABLET (FP) PO PRN ×3 (06:00→21:25)
[2019-07-31] MEDS: INSULIN SLIDING SCALE (NOVOLOG) 1 VIAL SQ SCH ×3 (06:04→18:15)
[2019-07-31 07:57] LABS: HEMATOCRIT 26.7 % (35.4-49); HEMOGLOBIN 9.2 GM/dL (11.7-16.9); MCH 28.6 pg (25.7-33.7); MCHC 34.4 g/dl (32.0-35.9); MEAN CELL VOLUME 83.1 fl (80-96); MEAN PLT VOLUME 7.7 fl (7.5-11.1); PLATELET COUNT 249 K/MM3 (134-434); RBC 3.21 M/mm3 (4.00-5.60); RDW 16.7 % (11.9-15.9); WHITE BLOOD COUNT 12.1 K/mm3 (4.0-10.0)
[2019-07-31 08:26] LABS: CALCIUM 8.7 mg/dL (8.5-10.1); CREATININE 0.7 mg/dL (0.55-1.3)
[2019-07-31] MEDS ORDERED: SODIUM CHLORIDE 1,000 ML IV SCH (09:00)
[2019-07-31] MEDS: CYCLOBENZAPRINE HCL 10 MG TABLET (FP) PO SCH ×2 (10:09→21:13)
[2019-07-31] MEDS: FOLIC ACID 1 MG TABLET (FP) PO SCH (10:09)
[2019-07-31] MEDS: PANTOPRAZOLE 40 MG TABLET (FP) PO SCH (10:09)
[2019-07-31] MEDS: DOCUSATE SODIUM 100 MG CAPSULE (FP) PO SCH ×2 (10:09→21:13)
[2019-07-31] MEDS: LOSARTAN POTASSIUM 50 MG TABLET (FP) PO SCH (10:09)
[2019-07-31] MEDS: ENOXAPARIN NA (PORCINE) 30 MG/0.3 ML DISP.SYRIN SQ SCH (10:09)
--- NOTE | 2019-07-31 10:35 | ECHO ---
Name: DEISI DAVIES Exam:Adult Echocardiogram Study Date: 07/31/2019 08:08 AM Age: 64 yrs Reason For Study: lung CA Height: 68 in Weight: 144 lb BSA: 1.8 m2 MMode/2D Measurements & Calculations IVSd: 1.3 cm Ao root diam: 3.8 cm LVIDd: 3.9 cm LA dimension: 2.6 cm LVIDs: 2.6 cm LVPWd: 1.2 cm EDV(Teich): 65.3 ml LVOT diam: 2.0 cm ESV(Teich): 24.7 ml LAV (MOD-bp): 55.3 ml Doppler Measurements & Calculations MV E max corona: 113.0 cm/sec Ao V2 max: 176.5 cm/sec MV A max corona: 102.8 cm/sec Ao max P.5 mmHg MV E/A: 1.1 MV dec time: 0.16 sec AWLTER(V,D): 1.6 cm2 LV V1 max P.4 mmHg Med Peak E' Corona: 6.5 cm/sec LV V1 max: 92.2 cm/sec Med E/e': 17.3 Lat Peak E' Corona: 7.0 cm/sec Lat E/e': 16.2 Procedure A two-dimensional transthoracic echocardiogram with color flow and Doppler was performed. Left Ventricle The left ventricular size, thickness and function are normal. The left ventricular ejection fraction is normal. The transmitral spectral Doppler flow pattern is normal for age. The left ventricular wall mo tion is normal. Right Ventricle The right ventricle is normal in size and function. Atria Normal left and right atrial size and function. Mitral Valve There is trivial mitral valve thickening. There is no mitral valve stenosis. There is trace mitral regurgitation. Tricuspid Valve The tricuspid valve is not well visualized. There is no tricuspid stenosis. There was insufficient TR detected to calculate RV systolic pressure. Aortic Valve The aortic valve is not well visualized. No hemodynamically significant valvular aortic stenosis. No aortic regurgitation is present. Pulmonic Valve The pulmonic valve is not well visualized. Great Vessels The aortic root is normal size. Pericardium/Pleura There is no pericardial effusion. Interpretation Summary The left ventricular size, thickness and function are normal The left ventricular ejection fraction is normal. The left ventricular wall motion is normal. There was insufficient TR detected to calculate RV systolic pressure. There is trace mitral regurgitation. The transmitral spectral Doppler flow pattern is normal for age. MD En Ibarra 07/31/2019 10:34 AM
[2019-07-31] MEDS ORDERED: INSULIN (NOVOLOG) ASPART 100 UNITS/ML 10ML VIAL ONE (12:37)
[2019-07-31] MEDS: POLYETHYLENE GLYCOL 3350 119 GM BTL PO SCH ×2 (13:05→21:13)
--- NOTE | 2019-07-31 13:40 | PN ---
Progress Note (short form) - Note Progress Note: Patient improving. Able to ambulate with Physical Therapy. Agree with consideration for Stereotactic Radiosurgery.
--- NOTE | 2019-07-31 15:36 | PN ---
Physical Exam: SUBJECTIVE: Patient seen and examined at the bedside, there were no acute events overnight. The patient did have some pain, but it was relieved this morning with his pain meds. OBJECTIVE: Vital Signs Period Temp Pulse Resp BP Sys/[place]re Pulse Ox Last 24 Hr 97.4 F-98.3 F 81-83 16-18 136-151/66-85 95-96 GENERAL: The patient is awake, alert, and fully oriented, in no acute distress. EYES: PERRL bilateraly, EOMI ENT: Ears normal, nares patent, oropharynx clear without exudates, moist mucous membranes. NECK: Trachea midline, full range of motion, supple. LUNGS: Breath sounds equal, clear to auscultation bilaterally, no wheezes, no crackles, no accessory muscle use. HEART: Regular rate and rhythm, S1, S2 without murmur, rub or gallop. ABDOMEN: Soft, nontender, nondistended, normoactive bowel sounds, no guarding, no rebound, no hepatosplenomegaly, no masses. EXTREMITIES: 2+ pulses, warm, well-perfused, no edema. R arm braced. NEUROLOGICAL: Cranial nerves II through XII grossly intact. Normal speech, gait not observed. PSYCH: Normal mood, normal affect. SKIN: Warm, dry, normal turgor, no rashes or lesions noted Laboratory Results - last 24 hr 07/30/19 07/31/19 07/31/19 17:38 06:03 07:00 WBC 12.1 H RBC 3.21 L Hgb 9.2 L Hct 26.7 L MCV 83.1 MCH 28.6 MCHC 34.4 RDW 16.7 H Plt Count 249 MPV 7.7 Sodium Potassium Chloride Carbon Dioxide Anion Gap BUN Creatinine Est GFR (CKD-EPI)AfAm Est GFR (CKD-EPI)NonAf POC Glucometer 327 225 Random Glucose Calcium Iron TIBC Iron Saturation Unsaturated IBC Ferritin 07/31/19 07/31/19 07/31/19 07:00 07:00 12:13 WBC RBC Hgb Hct MCV MCH MCHC RDW Plt Count MPV Sodium 130 L Potassium 4.0 Chloride 98 Carbon Dioxide 23 Anion Gap 10 BUN 22.0 H Creatinine 0.7 Est GFR (CKD-EPI)AfAm 117.22 Est GFR (CKD-EPI)NonAf 101.14 POC Glucometer 305 Random Glucose 207 H Calcium 8.7 Iron 48 L TIBC 216 L Iron Saturation 22 Unsaturated IBC 168 L Ferritin 1135.7 H Active Medications Generic Name Dose Route Start Last Admin Trade Name Freq PRN Reason Stop Dose Admin Acetaminophen 1,000 mg 07/23/19 03:41 07/31/19 13:08 Tylenol - PO 1,000 mg Q6H PRN Administration PAIN LEVEL 1 - 3 Amlodipine Besylate 10 mg 07/23/19 22:00 07/30/19 21:28 Norvasc - PO 10 mg HS MOLLY Administration Atorvastatin Calcium 10 mg 07/23/19 09:15 07/30/19 21:27 Lipitor - PO 10 mg HS MOLLY Administration Cyclobenzaprine HCl 10 mg 07/23/19 10:00 07/31/19 10:09 Flexeril - PO 10 mg BID MOLLY Administration Dexamethasone Sodium Phosphate 4 mg 07/30/19 16:15 07/31/19 04:50 Decadron Injection - IVPUSH 4 mg Q12H MOLLY Administration Docusate Sodium 100 mg 07/23/19 10:00 07/31/19 10:09 Colace - PO 100 mg BID MOLLY Administration Enoxaparin Sodium 30 mg 07/30/19 16:15 07/31/19 10:09 Lovenox - SQ 30 mg DAILY MOLLY Administration Folic Acid 1 mg 07/30/19 10:00 07/31/19 10:09 Folic Acid - PO 1 mg DAILY MOLLY Administration Sodium Chloride 1,000 mls @ 50 mls/hr 07/31/19 09:00 07/31/19 10:09 Normal Saline - IV 08/01/19 08:49 50 mls/hr ASDIR MOLLY Administration Insulin Aspart 1 vial 07/23/19 16:30 07/31/19 13:06 Novolog Vial Sliding Scale - SQ 6 units TIDAC MOLLY Administration Protocol Losartan Potassium 50 mg 07/23/19 10:00 07/31/19 10:09 Cozaar - PO 50 mg DAILY MOLLY Administration Oxycodone HCl 5 mg 07/29/19 14:11 07/31/19 01:57 Roxicodone - PO 5 mg Q3H PRN Administration PAIN LEVEL 4 - 6 Pantoprazole Sodium 40 mg 07/30/19 10:00 07/31/19 10:09 Protonix - PO 40 mg DAILY MOLLY Administration Polyethylene Glycol 17 gm 07/26/19 22:00 07/31/19 13:05 Miralax (For Daily Use) - PO 17 gm BID MOLLY Administration Assessment and Plan: Patient is a 64-year-old male with PMHx of prostate cancer, recent lung cancer with metastasis to the bone, diabetes and hyperlipidemia who presented to the ED with right upper arm pain which started after pushing himself up onto his cane. # Metastatic Lung cancer with bone mets - Spoke to Dr. Ordoñez regarding patient's MRI which showed multiple small, bilateral non-hemorrhagic cerebral and cerebellar infarcts. There is still only 1 solitary brain mets however it appears to be a little larger and the area of edema surrounding it also seems slightly larger. Will notify Dr. Parham. -Heme following, Dr. Syed, appreciate recommendations -molecular studies pending from [facility] -taper decadron to 4mg q12 end of day , then taper down to 4mg daily for 2 days starting Monday, then stop Monday. -starting lovenox 30 for prophylaxis -RT consultation for stereotactic to brain lesion -considering proceeding with SRS to single brain met prior to commencing systemic tx which has been discussed by Dr. Syed -neuro consultation Dr. Damon appreciated -will attempt to get port placed for chemotherapy -echo ordered to assess for malignant neoplastic vegetations as causes of cerebral infarct # Humeral fracture - Orthopedic surgery consulted (Dr. Franklin), appreciate recommendations - Patient placed in arriaza functional brace for several weeks; patient to follow up outpatient with x-rays. - Per ortho: No surgical orthopedic management - Patient will stay in Arriaza brace for next several weeks, with X-rays weekly for the first 3 weeks , and every 2-3 weeks after that until fracture healed. - Patient will need X-rays taken at the hospital of his right humerus the day before his office visit. - Neurosurgery (Dr. Parham) consulted, appreciate recommendations - Patient has multiple spine mets, however, he should be allowed to ambulate with an abdominal binder. - Pain control: Transition to oral pain medications, minimize narcotic use; avoid NSAIDs - DVT prophylaxis - Ice/Elevation of right forearm and wrist. Ice to right humerus (not directly on skin) - PT for RUE (non weight bearing); AROM of hand and fingers and elbow > will assess patient after we receive recommendations from Neurosurgery - Consider consulted palliative care to help with pain management # Hyponatremia - improved # Anemia - Hgb 7.9, m - transfusing 2 units today # Hyperlipidemia - Continue home simvastatin # Diabetes Mellitus - ISS - Will resume home Januvia at discharge # Hypertension - Continue home Losartan - Continue home Norvasc # DVT Prophylaxis - Lovenox 30 sq daily -Dispo: pending scheduling of steriotactic radiosurgery and port placement for chemo Visit type - Emergency Visit Emergency Visit: Yes ED Registration Date: 07/23/19 Care time: The patient presented to the Emergency Department on the above date and was hospitalized for further evaluation of their emergent condition. - New Patient This patient is new to me today: No - Critical Care Critical Care patient: No - Discharge Referral Referred to [facility] No ATTENDING PHYSICIAN STATEMENT I saw and evaluated the patient. I reviewed the resident's note and discussed the case with the resident. I agree with the resident's findings and plan as documented. SUBJECTIVE: OBJECTIVE: ASSESSMENT AND PLAN:
--- NOTE | 2019-07-31 18:07 | PN ---
Teaching Attending Note Name of Resident: Kirsty Cm ATTENDING PHYSICIAN STATEMENT I saw and evaluated the patient. I reviewed the resident's note and discussed the case with the resident. I agree with the resident's findings and plan as documented. SUBJECTIVE: feels better , denies weakness. has pain in R humerus OBJECTIVE: NAD, sitting in chair CV: RRR, no MRG Lungs: CATB Ext: No edema or erythema on LE. RUE with a brace on upper arm.nl sensation to light touch and RP 2+ symmetric with R L side. Can move R hand and make a fist. Neuro of LE: strength 5/5 in hip flexion, knee flexion /extension and ankle dorsiflexion and plantar flexion and L biceps, triceps, and deltoid and shoulder shrug. reflexes 2+ knee jerk B/L . EOMI, round equal pupils, ASSESSMENT AND PLAN: Unfortunate 64 y/o man with h/o HTN, HLP, prostate cancer, PAD s/p L iliac vessel angioplasty, PCI , h/o heavy smoking, recent diagnossi of lung cancer with mets to bone and brain who presented with pain in RUE trying to get up form his chair. He was found tohave a spiral Fx of the R humerus 1- R humerus Fx: cont brace. repeat xray reviewed 2- H/o DM :cont with SSI 3- Lung adenocarcinoma with bone and brain mets - MRIs reviewed. notes reviewed. - plan for Steriotactic radiosurgery then chemo then humerus sx then radiation to Humerus - will d/w heme - cont decadrone for edema surrounding brain lesion . also for slight compression on sac in sacral area - echo reviewed. no clots. might need prolonged monitoring to r/o chronic A fib. 4- HTN: Norvasc and losartan 5- DVT PX : Lovenox.
--- NOTE | 2019-07-31 18:59 | PN ---
Progress Note (short form) - Note Progress Note: Patient seen and examined Lengthy discussion with family about future course and anagement Will need to further discuss with Dr. machado. Last Vital Signs Temp Pulse Resp BP Pulse Ox 97.9 F 91 H 18 146/71 96 07/31/19 18:00 07/31/19 18:00 07/31/19 18:00 07/31/19 18:00 07/31/19 09:00 Lungs -clear Cor -RSR Right upper extremity - brace No LE edema CBC, BMP 07/31/19 07:00 07/31/19 07:00 Current Medications Generic Name Dose Route Start Last Admin Trade Name Freq PRN Reason Stop Dose Admin Acetaminophen 1,000 mg 07/23/19 03:41 07/31/19 13:08 Tylenol - PO 1,000 mg Q6H PRN Administration PAIN LEVEL 1 - 3 Amlodipine Besylate 10 mg 07/23/19 22:00 07/30/19 21:28 Norvasc - PO 10 mg HS MOLLY Administration Atorvastatin Calcium 10 mg 07/23/19 09:15 07/30/19 21:27 Lipitor - PO 10 mg HS MOLLY Administration Cyclobenzaprine HCl 10 mg 07/23/19 10:00 07/31/19 10:09 Flexeril - PO 10 mg BID MOLLY Administration Dexamethasone Sodium Phosphate 4 mg 07/30/19 16:15 07/31/19 16:15 Decadron Injection - IVPUSH 4 mg Q12H MOLLY Administration Docusate Sodium 100 mg 07/23/19 10:00 07/31/19 10:09 Colace - PO 100 mg BID MOLLY Administration Enoxaparin Sodium 30 mg 07/30/19 16:15 07/31/19 10:09 Lovenox - SQ 30 mg DAILY MOLLY Administration Folic Acid 1 mg 07/30/19 10:00 07/31/19 10:09 Folic Acid - PO 1 mg DAILY MOLLY Administration Sodium Chloride 1,000 mls @ 50 mls/hr 07/31/19 09:00 07/31/19 10:09 Normal Saline - IV 08/01/19 08:49 50 mls/hr ASDIR MOLLY Administration Insulin Aspart 1 vial 07/23/19 16:30 07/31/19 18:15 Novolog Vial Sliding Scale - SQ 4 units TIDAC MOLLY Administration Protocol Losartan Potassium 50 mg 07/23/19 10:00 07/31/19 10:09 Cozaar - PO 50 mg DAILY MOLLY Administration Oxycodone HCl 5 mg 07/29/19 14:11 07/31/19 01:57 Roxicodone - PO 5 mg Q3H PRN Administration PAIN LEVEL 4 - 6 Pantoprazole Sodium 40 mg 07/30/19 10:00 07/31/19 10:09 Protonix - PO 40 mg DAILY MOLLY Administration Polyethylene Glycol 17 gm 07/26/19 22:00 07/31/19 13:05 Miralax (For Daily Use) - PO 17 gm BID MOLLY Administration Impression: Adenoca of lung Mets Anemia Pain management Hypercoaguable state Plan : [facility] service - ? rehab ? a/c upon discharge -discuss with neurology
[2019-07-31] MEDS: morphine SO4 SUSTAINED ACTING 15 MG TABLET.SA PO SCH (21:12)
[2019-07-31] MEDS: amLODIPine BESYLATE 10 MG TABLET (FP) PO SCH (21:13)
[2019-07-31] MEDS: ATORVASTATIN CA 10 MG TABLET (FP) PO SCH (21:13)
[2019-07-31] MEDS ORDERED: morphine SO4 SUSTAINED ACTING 100 MG TABLET.SA PO SCH (22:00)
[2019-08-01] MEDS: oxyCODONE HCL 5 MG TABLET PO PRN ×3 (00:41→12:45)
[2019-08-01] MEDS: DEXAMETHASONE SOD PHOSPHATE 4 MG/1 ML VIAL IVPUSH SCH ×2 (03:24→15:53)
[2019-08-01] MEDS: INSULIN SLIDING SCALE (NOVOLOG) 1 VIAL SQ SCH ×3 (06:06→17:12)
[2019-08-01 07:29] LABS: HEMATOCRIT 30.9 % (35.4-49); HEMOGLOBIN 10.2 GM/dL (11.7-16.9); MCHC 32.9 g/dl (32.0-35.9); MEAN CELL VOLUME 85.1 fl (80-96); MEAN PLT VOLUME 7.6 fl (7.5-11.1); PLATELET COUNT 251 K/MM3 (134-434); RBC 3.63 M/mm3 (4.00-5.60); RDW 17.2 % (11.9-15.9)
[2019-08-01 07:52] LABS: BLOOD UREA NITROGEN 19.1 mg/dL (7-18); CREATININE 0.6 mg/dL (0.55-1.3); POTASSIUM 4.4 mmol/L (3.5-5.1)
[2019-08-01] MEDS: PANTOPRAZOLE 40 MG TABLET (FP) PO SCH (09:56)
[2019-08-01] MEDS: FOLIC ACID 1 MG TABLET (FP) PO SCH (09:56)
[2019-08-01] MEDS: DOCUSATE SODIUM 100 MG CAPSULE (FP) PO SCH ×2 (09:56→21:56)
[2019-08-01] MEDS: morphine SO4 SUSTAINED ACTING 15 MG TABLET.SA PO SCH ×2 (09:56→21:58)
[2019-08-01] MEDS: LOSARTAN POTASSIUM 50 MG TABLET (FP) PO SCH (09:56)
[2019-08-01] MEDS: CYCLOBENZAPRINE HCL 10 MG TABLET (FP) PO SCH ×2 (09:56→21:56)
[2019-08-01] MEDS: POLYETHYLENE GLYCOL 3350 119 GM BTL PO SCH ×2 (09:57→21:57)
[2019-08-01] MEDS: ENOXAPARIN NA (PORCINE) 30 MG/0.3 ML DISP.SYRIN SQ SCH (09:57)
[2019-08-01] MEDS ORDERED: INSULIN (NOVOLOG) ASPART 100 UNITS/ML 10ML VIAL ONE (11:22)
--- NOTE | 2019-08-01 13:57 | PN ---
Physical Exam: SUBJECTIVE: Patient seen and examined at the bedside, there were no acute events. Patient awaiting plan for SRS and port placement. OBJECTIVE: Vital Signs Period Temp Pulse Resp BP Sys/De [place] Torre Pulse Ox Last 24 Hr 97.4 F-97.9 F 81-91 18-18 146-158/71-85 95-97 GENERAL: The patient is awake, alert, and fully oriented, in no acute distress. EYES: PERRL bilateraly, EOMI ENT: Ears normal, nares patent, oropharynx clear without exudates, moist mucous membranes. NECK: Trachea midline, full range of motion, supple. LUNGS: Breath sounds equal, clear to auscultation bilaterally, no wheezes, no crackles, no accessory muscle use. HEART: Regular rate and rhythm, S1, S2 without murmur, rub or gallop. ABDOMEN: Soft, nontender, nondistended, normoactive bowel sounds, no guarding, no rebound, no hepatosplenomegaly, no masses. EXTREMITIES: 2+ pulses, warm, well-perfused, no edema. R arm braced. NEUROLOGICAL: Cranial nerves II through XII grossly intact. Normal speech, gait not observed. PSYCH: Normal mood, normal affect. SKIN: Warm, dry, normal turgor, no rashes or lesions noted Laboratory Results - last 24 hr 07/31/19 08/01/19 08/01/19 17:26 06:03 06:30 WBC 14.0 H RBC 3.63 L Hgb 10.2 L Hct 30.9 L D MCV 85.1 MCH 28.0 MCHC 32.9 RDW 17.2 H Plt Count 251 MPV 7.6 Sodium Potassium Chloride Carbon Dioxide Anion Gap BUN Creatinine Est GFR (CKD-EPI)AfAm Est GFR (CKD-EPI)NonAf POC Glucometer 300 185 Random Glucose Calcium 08/01/19 08/01/19 06:30 11:15 WBC RBC Hgb Hct MCV MCH MCHC RDW Plt Count MPV Sodium 133 L Potassium 4.4 Chloride 99 Carbon Dioxide 25 Anion Gap 9 BUN 19.1 H Creatinine 0.6 Est GFR (CKD-EPI)AfAm 124.89 Est GFR (CKD-EPI)NonAf 107.76 POC Glucometer 249 Random Glucose 186 H Calcium 9.0 Active Medications Generic Name Dose Route Start Last Admin Trade Name Freq PRN Reason Stop Dose Admin Acetaminophen 1,000 mg 07/23/19 03:41 07/31/19 21:25 Tylenol - PO 1,000 mg Q6H PRN Administration PAIN LEVEL 1 - 3 Amlodipine Besylate 10 mg 07/23/19 22:00 07/31/19 21:13 Norvasc - PO 10 mg HS MOLLY Administration Atorvastatin Calcium 10 mg 07/23/19 09:15 07/31/19 21:13 Lipitor - PO 10 mg HS MOLLY Administration Cyclobenzaprine HCl 10 mg 07/23/19 10:00 08/01/19 09:56 Flexeril - PO 10 mg BID MOLLY Administration Dexamethasone Sodium Phosphate 4 mg 07/30/19 16:15 08/01/19 03:24 Decadron Injection - IVPUSH 4 mg Q12H MOLLY Administration Docusate Sodium 100 mg 07/23/19 10:00 08/01/19 09:56 Colace - PO 100 mg BID MOLLY Administration Folic Acid 1 mg 07/30/19 10:00 08/01/19 09:56 Folic Acid - PO 1 mg DAILY MOLLY Administration Insulin Aspart 1 vial 07/23/19 16:30 08/01/19 11:43 Novolog Vial Sliding Scale - SQ 2 units TIDAC MOLLY Administration Protocol Losartan Potassium 50 mg 07/23/19 10:00 08/01/19 09:56 Cozaar - PO 50 mg DAILY MOLLY Administration Morphine Sulfate 15 mg 07/31/19 22:00 08/01/19 09:56 Ms Contin - PO 15 mg BID MOLLY Administration Oxycodone HCl 10 mg 07/31/19 18:59 08/01/19 12:45 Roxicodone - PO 10 mg Q4H PRN Administration PAIN LEVEL 1-5 Pantoprazole Sodium 40 mg 07/30/19 10:00 08/01/19 09:56 Protonix - PO 40 mg DAILY MOLLY Administration Polyethylene Glycol 17 gm 07/26/19 22:00 08/01/19 09:57 Miralax (For Daily Use) - PO 17 gm BID MOLLY Administration Pramipexole Dihydrochloride 0.25 mg 08/01/19 22:00 Mirapex - PO HS [facility] ASSESSMENT/PLAN: Patient is a 64-year-old male with PMHx of prostate cancer, recent lung cancer with metastasis to the bone, diabetes and hyperlipidemia who presented to the ED with right upper arm pain which started after pushing himself up onto his cane. # Metastatic Lung cancer with bone mets - Spoke to Dr. Ordoñez regarding patient's MRI which showed multiple small, bilateral non-hemorrhagic cerebral and cerebellar infarcts. There is still only 1 solitary brain mets however it appears to be a little larger and the area of edema surrounding it also seems slightly larger. Will notify Dr. Parham. -Heme following, Dr. Syed, appreciate recommendations -molecular studies pending from [facility] -taper decadron to 4mg q12 end of day , then taper down to 4mg daily for 2 days starting Monday, then stop Monday. -starting lovenox 30 for prophylaxis -RT consultation for stereotactic to brain lesion -considering proceeding with SRS to single brain met prior to commencing systemic tx which has been discussed by Dr. Syed -neuro consultation Dr. Daomn appreciated -will attempt to get port placed for chemotherapy -echo ordered to assess for malignant neoplastic vegetations as causes of cerebral infarct # Humeral fracture - Orthopedic surgery consulted (Dr. Franklin), appreciate recommendations - Patient placed in arriaza functional brace for several weeks; patient to follow up outpatient with x-rays. - Per ortho: No surgical orthopedic management - Patient will stay in Arriaza brace for next several weeks, with X-rays weekly for the first 3 weeks , and every 2-3 weeks after that until fracture healed. - Patient will need X-rays taken at the hospital of his right humerus the day before his office visit. - Neurosurgery (Dr. Parham) consulted, appreciate recommendations - Patient has multiple spine mets, however, he should be allowed to ambulate with an abdominal binder. - Pain control: Transition to oral pain medications, minimize narcotic use; avoid NSAIDs - DVT prophylaxis - Ice/Elevation of right forearm and wrist. Ice to right humerus (not directly on skin) - PT for RUE (non weight bearing); AROM of hand and fingers and elbow > will assess patient after we receive recommendations from Neurosurgery - Consider consulted palliative care to help with pain management # Hyponatremia - improved # Anemia - Hgb 7.9, m - transfusing 2 units today # Hyperlipidemia - Continue home simvastatin # Diabetes Mellitus - ISS - Will resume home Januvia at discharge # Hypertension - Continue home Losartan - Continue home Norvasc # DVT Prophylaxis - Lovenox 30 sq daily -Dispo: pending scheduling of steriotactic radiosurgery and port placement for chemo Visit type - Emergency Visit Emergency Visit: Yes ED Registration Date: 07/23/19 Care time: The patient presented to the Emergency Department on the above date and was hospitalized for further evaluation of their emergent condition. - New Patient This patient is new to me today: No - Critical Care Critical Care patient: No - Discharge Referral Referred to [facility] No ATTENDING PHYSICIAN STATEMENT I saw and evaluated the patient. I reviewed the resident's note and discussed the case with the resident. I agree with the resident's findings and plan as documented. SUBJECTIVE: OBJECTIVE: ASSESSMENT AND PLAN:
--- NOTE | 2019-08-01 16:17 | PN ---
Teaching Attending Note Name of Resident: Kirsty Cm ATTENDING PHYSICIAN STATEMENT I saw and evaluated the patient. I reviewed the resident's note and discussed the case with the resident. I agree with the resident's findings and plan as documented. SUBJECTIVE: no fever or chills. No AZUL. feels tired OBJECTIVE: NAD, sitting in chair CV: RRR, no MRG Lungs: CATB Ext: No edema or erythema on LE. RUE with a brace on upper arm.RP 2+ symmetric with L side. Neuro of LE: strength 5/5 in R hip flexion, and 4/5 in L hip flexion , 5/5 knee flexion /extension and ankle dorsiflexion and plantar flexion ASSESSMENT AND PLAN: Unfortunate 64 y/o man with h/o HTN, HLP, prostate cancer, PAD s/p L iliac vessel angioplasty, PCI , h/o heavy smoking, recent diagnossi of lung cancer with mets to bone and brain who presented with pain in RUE trying to get up form his chair. He was found tohave a spiral Fx of the R humerus 1- R humerus Fx: cont brace. possible sx as out pt befre radiation 2- H/o DM :cont with SSI 3- Lung adenocarcinoma with bone and brain mets. - plan for Steriotactic radiosurgery, chemo , then humerus sx before radiation to Humerus - cont pain control - cont decadrone - might need prolonged monitoring to r/o chronic A fib. - awaiting further plan from ONc 4- HTN: Norvasc and losartan 5- DVT PX : Lovenox. will d/w neuro out pt lovenox use in setting of neuro mets . d/w patietn and family. rehab placement is desired, but it might delay treatment , so family agrees fro home dc when ready
--- NOTE | 2019-08-01 20:48 | PN ---
Progress Note (short form) - Note Progress Note: Patient seen and examined c/o rt. arm and back pain AFVSS Cor: RSR, No murmurs, No gallops Lungs: Clear to P&A Abd: Soft, Normal bowel sounds, No organomegaly Ext:No significant edema Labs/meds reviewed A/P 64 y/o patient with newly diagnosed metastatic lung cancer, with bone mets, who presents following pathological fracture R humerus. Rt. frontal 1.7 cm lesion with perilesional edema Aslo with multiple verebral metastases , S1 lesion with epidural extension Biopsy of RLLlesion c/w adenoca PDL!<1% also with b/l cerebral infarcts f/u neuro recs for port in am or SRS at [facility]
[2019-08-01] MEDS ORDERED: PT OWN MED DRAWER 7, Y5N ONE (21:23)
[2019-08-01] MEDS: ATORVASTATIN CA 10 MG TABLET (FP) PO SCH (21:56)
[2019-08-01] MEDS: PRAMIPEXOLE DIHYDROCHLORIDE 0.25 MG TABLET PO SCH (21:57)
[2019-08-01] MEDS: amLODIPine BESYLATE 10 MG TABLET (FP) PO SCH (21:59)
[2019-08-02] MEDS: ACETAMINOPHEN 500 MG TABLET (FP) PO PRN
[2019-08-02] MEDS: oxyCODONE HCL 5 MG TABLET PO PRN ×2 (03:40→17:03)
[2019-08-02] MEDS: DEXAMETHASONE SOD PHOSPHATE 4 MG/1 ML VIAL IVPUSH SCH ×2 (03:40→16:19)
[2019-08-02] MEDS: INSULIN SLIDING SCALE (NOVOLOG) 1 VIAL SQ SCH ×3 (06:30→16:18)
[2019-08-02 08:07] LABS: HEMATOCRIT 25.6 % (35.4-49); HEMOGLOBIN 8.7 GM/dL (11.7-16.9); MCH 28.7 pg (25.7-33.7); MCHC 33.9 g/dl (32.0-35.9); MEAN CELL VOLUME 84.6 fl (80-96); MEAN PLT VOLUME 7.9 fl (7.5-11.1); PLATELET COUNT 222 K/MM3 (134-434); RBC 3.02 M/mm3 (4.00-5.60); RDW 17.3 % (11.9-15.9); WHITE BLOOD COUNT 12.1 K/mm3 (4.0-10.0)
[2019-08-02 08:11] LABS: BLOOD UREA NITROGEN 21.4 mg/dL (7-18); CALCIUM 8.7 mg/dL (8.5-10.1); CREATININE 0.7 mg/dL (0.55-1.3); POTASSIUM 4.8 mmol/L (3.5-5.1)
[2019-08-02] MEDS: morphine SO4 SUSTAINED ACTING 15 MG TABLET.SA PO SCH ×2 (10:03→21:01)
[2019-08-02] MEDS: PANTOPRAZOLE 40 MG TABLET (FP) PO SCH (10:03)
[2019-08-02] MEDS: CYCLOBENZAPRINE HCL 10 MG TABLET (FP) PO SCH ×2 (10:03→21:00)
[2019-08-02] MEDS: LOSARTAN POTASSIUM 50 MG TABLET (FP) PO SCH (10:03)
[2019-08-02] MEDS: DOCUSATE SODIUM 100 MG CAPSULE (FP) PO SCH ×2 (10:03→21:00)
[2019-08-02] MEDS: FOLIC ACID 1 MG TABLET (FP) PO SCH (10:04)
[2019-08-02] MEDS: POLYETHYLENE GLYCOL 3350 119 GM BTL PO SCH ×2 (10:04→21:00)
[2019-08-02] MEDS ORDERED: MIDAZOLAM HCL 2 MG/2 ML SINGLE DOSE VIAL ONE (11:11)
[2019-08-02] MEDS ORDERED: MIDAZOLAM HCL 2 MG/2 ML SINGLE DOSE VIAL IVPUSH ONE (11:20)
--- NOTE | 2019-08-02 14:58 | PN ---
Physical Exam: SUBJECTIVE: Patient seen and examined at the bedside,there were no acute events. Patient will have port placed today. OBJECTIVE: Vital Signs Period Temp Pulse Resp BP Sys/De La Torre Pulse Ox Last 24 Hr 97.3 F-98.2 F 74-93 11-20 131-159/60-89 97-100 GENERAL: The patient is awake, alert, and fully oriented, in no acute distress. EYES: PERRL bilateraly, EOMI ENT: Ears normal, nares patent, oropharynx clear without exudates, moist mucous membranes. NECK: Trachea midline, full range of motion, supple. LUNGS: Breath sounds equal, clear to auscultation bilaterally, no wheezes, no crackles, no accessory muscle use. HEART: Regular rate and rhythm, S1, S2 without murmur, rub or gallop. ABDOMEN: Soft, nontender, nondistended, normoactive bowel sounds, no guarding, no rebound, no hepatosplenomegaly, no masses. EXTREMITIES: 2+ pulses, warm, well-perfused, no edema. R arm braced. NEUROLOGICAL: Cranial nerves II through XII grossly intact. Normal speech, gait not observed. PSYCH: Normal mood, normal affect. SKIN: Warm, dry, normal turgor, no rashes or lesions noted Laboratory Results - last 24 hr 08/01/19 08/02/19 08/02/19 16:55 06:20 06:20 WBC 12.1 H RBC 3.02 L Hgb 8.7 L Hct 25.6 L D MCV 84.6 MCH 28.7 MCHC 33.9 RDW 17.3 H Plt Count 222 MPV 7.9 Sodium 131 L Potassium 4.8 Chloride 98 Carbon Dioxide 25 Anion Gap 8 BUN 21.4 H Creatinine 0.7 Est GFR (CKD-EPI)AfAm 117.22 Est GFR (CKD-EPI)NonAf 101.14 POC Glucometer 156 Random Glucose 221 H Calcium 8.7 08/02/19 06:24 WBC RBC Hgb Hct MCV MCH MCHC RDW Plt Count MPV Sodium Potassium Chloride Carbon Dioxide Anion Gap BUN Creatinine Est GFR (CKD-EPI)AfAm Est GFR (CKD-EPI)NonAf POC Glucometer 233 Random Glucose Calcium Active Medications Generic Name Dose Route Start Last Admin Trade Name Freq PRN Reason Stop Dose Admin Acetaminophen 1,000 mg 07/23/19 03:41 08/02/19 00:00 Tylenol - PO 1,000 mg Q6H PRN Administration PAIN LEVEL 1 - 3 Amlodipine Besylate 10 mg 07/23/19 22:00 08/01/19 21:59 Norvasc - PO 10 mg HS MOLLY Administration Atorvastatin Calcium 10 mg 07/23/19 09:15 08/01/19 21:56 Lipitor - PO 10 mg HS MOLLY Administration Cyclobenzaprine HCl 10 mg 07/23/19 10:00 08/02/19 10:03 Flexeril - PO 10 mg BID MOLLY Administration Dexamethasone Sodium Phosphate 4 mg 07/30/19 16:15 08/02/19 03:40 Decadron Injection - IVPUSH 4 mg Q12H MOLLY Administration Docusate Sodium 100 mg 07/23/19 10:00 08/02/19 10:03 Colace - PO 100 mg BID MOLLY Administration Folic Acid 1 mg 07/30/19 10:00 08/02/19 10:04 Folic Acid - PO 1 mg DAILY MOLLY Administration Insulin Aspart 1 vial 07/23/19 16:30 08/02/19 11:00 Novolog Vial Sliding Scale - SQ Not Given TIDAC [facility] Protocol Losartan Potassium 50 mg 07/23/19 10:00 08/02/19 10:03 Cozaar - PO 50 mg DAILY MOLLY Administration Morphine Sulfate 15 mg 07/31/19 22:00 08/02/19 10:03 Ms Contin - PO 15 mg BID MOLLY Administration Oxycodone HCl 10 mg 07/31/19 18:59 08/02/19 03:40 Roxicodone - PO 10 mg Q4H PRN Administration PAIN LEVEL 1-5 Pantoprazole Sodium 40 mg 07/30/19 10:00 08/02/19 10:03 Protonix - PO 40 mg DAILY MOLLY Administration Polyethylene Glycol 17 gm 07/26/19 22:00 08/02/19 10:04 Miralax (For Daily Use) - PO 17 gm BID MOLLY Administration Pramipexole Dihydrochloride 0.25 mg 08/01/19 22:00 08/01/19 21:57 Mirapex - PO 0.25 mg HS MOLLY Administration ASSESSMENT/PLAN: Patient is a 64-year-old male with PMHx of prostate cancer, recent lung cancer with metastasis to the bone, diabetes and hyperlipidemia who presented to the ED with right upper arm pain which started after pushing himself up onto his cane. # Metastatic Lung cancer with bone mets - Spoke to Dr. Ordoñez regarding patient's MRI which showed multiple small, bilateral non-hemorrhagic cerebral and cerebellar infarcts. There is still only 1 solitary brain mets however it appears to be a little larger and the area of edema surrounding it also seems slightly larger. Will notify Dr. Parham. -Heme following, Dr. Syed, appreciate recommendations- will have port placed for chemotherapy today -molecular studies pending from [facility] -taper decadron to 4mg q12 end of day , then taper down to 4mg daily for 2 days starting Monday, then stop Monday. -starting lovenox 30 for prophylaxis -RT consultation for stereotactic to brain lesion -considering proceeding with SRS to single brain met prior to commencing systemic tx which has been discussed by Dr. Syed -neuro consultation Dr. Damon appreciated -will attempt to get port placed for chemotherapy -echo ordered to assess for malignant neoplastic vegetations as causes of cerebral infarct # Humeral fracture - Orthopedic surgery consulted (Dr. Franklin), appreciate recommendations - Patient placed in arriaza functional brace for several weeks; patient to follow up outpatient with x-rays. - Per ortho: No surgical orthopedic management - Patient will stay in Arriaza brace for next several weeks, with X-rays weekly for the first 3 weeks , and every 2-3 weeks after that until fracture healed. - Patient will need X-rays taken at the hospital of his right humerus the day before his office visit. - Neurosurgery (Dr. Parham) consulted, appreciate recommendations - Patient has multiple spine mets, however, he should be allowed to ambulate with an abdominal binder. - Pain control: Transition to oral pain medications, minimize narcotic use; avoid NSAIDs - DVT prophylaxis - Ice/Elevation of right forearm and wrist. Ice to right humerus (not directly on skin) - PT for RUE (non weight bearing); AROM of hand and fingers and elbow > will assess patient after we receive recommendations from Neurosurgery - Consider consulted palliative care to help with pain management # Hyponatremia - improved # Anemia - Hgb 7.9, m - transfusing 2 units today # Hyperlipidemia - Continue home simvastatin # Diabetes Mellitus - ISS - Will resume home Januvia at discharge # Hypertension - Continue home Losartan - Continue home Norvasc # DVT Prophylaxis - Lovenox 30 sq daily -Dispo: pending scheduling of steriotactic radiosurgery, possible to be discharged to home and follow up at outpatient for further management. Pending discharge instructions from the Radiation Oncologist. Visit type - Emergency Visit Emergency Visit: Yes ED Registration Date: 07/23/19 Care time: The patient presented to the Emergency Department on the above date and was hospitalized for further evaluation of their emergent condition. - New Patient This patient is new to me today: No - Critical Care Critical Care patient: No - Discharge Referral Referred to [facility] No ATTENDING PHYSICIAN STATEMENT I saw and evaluated the patient. I reviewed the resident's note and discussed the case with the resident. I agree with the resident's findings and plan as documented. SUBJECTIVE: OBJECTIVE: ASSESSMENT AND PLAN:
--- NOTE | 2019-08-02 17:34 | PN ---
Teaching Attending Note Name of Resident: Kirsty Cm ATTENDING PHYSICIAN STATEMENT I saw and evaluated the patient. I reviewed the resident's note and discussed the case with the resident. I agree with the resident's findings and plan as documented. SUBJECTIVE: No fever or chills. No AZUL . No pain. feels better OBJECTIVE: NAD, comfortable in bed CV: RRR, no MRG Lungs: CATB Ext: No edema or erythema on LE. RUE with a brace on upper arm. RP 2+ symmetric with L side. Neuro of LE: strength 5/5 in R hip flexion, and 5/5 in L hip flexion , 5/5 knee flexion /extension and ankle dorsiflexion and plantar flexion 2+ knee jerk b/l skin: port with clean dressing on R subclavicular area. ASSESSMENT AND PLAN: Unfortunate 64 y/o man with h/o HTN, HLP, prostate cancer, PAD s/p L iliac vessel angioplasty, PCI , h/o heavy smoking, recent diagnossi of lung cancer with mets to bone and brain who presented with pain in RUE trying to get up form his chair. He was found tohave a spiral Fx of the R humerus 1- R humerus Fx: cont brace. possible sx as out pt before radiation 2- H/o DM :cont with SSI 3- Lung adenocarcinoma with bone and brain mets. - plan for Steriotactic radiosurgery, chemo , then humerus sx before radiation to Humerus - port placed today - cont pain control - cont decadrone . will ask heme about taper instructions - might need prolonged monitoring to r/o chronic A fib. - trying to reach and d/w Dr. Montiel about discharge details and follow up 4- HTN: Norvasc and losartan 5- DVT PX : Lovenox. will d/w neuro out pt lovenox use in setting of neuro mets . d/w patient and family. plan is for DC home with services, to f/u as out pt for SRS
[2019-08-02] MEDS: amLODIPine BESYLATE 10 MG TABLET (FP) PO SCH (21:00)
[2019-08-02] MEDS: ATORVASTATIN CA 10 MG TABLET (FP) PO SCH (21:00)
[2019-08-02] MEDS: PRAMIPEXOLE DIHYDROCHLORIDE 0.25 MG TABLET PO SCH (21:00)
[2019-08-03] MEDS: DEXAMETHASONE SOD PHOSPHATE 4 MG/1 ML VIAL IVPUSH SCH (04:58)
[2019-08-03] MEDS: oxyCODONE HCL 5 MG TABLET PO PRN ×2 (04:58→10:27)
[2019-08-03] MEDS: INSULIN SLIDING SCALE (NOVOLOG) 1 VIAL SQ SCH ×3 (06:07→17:29)
--- NOTE | 2019-08-03 07:39 | PN ---
Physical Exam: SUBJECTIVE: Patient seen and examined at bedside no acute event overnight patient states he is having mild pain but it feeling better once he gets the pain pills; he states his breathing is improving as well; he denies any CP, SOB , n/V OBJECTIVE: Vital Signs Period Temp Pulse Resp BP Sys/De La Torre Pulse Ox Last 24 Hr 97.7 F-98.8 F 74-100 11-20 131-159/60-85 96-100 GENERAL: The patient is awake, alert, and fully oriented, in no acute distress.. EYES: PEERLA: EOMI; no scleral icterus . NECK: no JVD; no lymphadenopathy. LUNGS:CTA B/L; no rales, rhonchi or wheezing . HEART: Regular rate and rhythm, S1, S2 without murmur, rub or gallop. ABDOMEN:soft; NT/ND +BS in all 4 quadrants EXTREMITIES: 2+ pulses, warm, well-perfused, no edema. RIGHT EXTREMITY: in brace with sling; slight tenderness upon palpation PSYCH: Normal mood, normal affect. SKIN: Warm, dry, normal turgor, no rashes or lesions noted Laboratory Results - last 24 hr 08/02/19 08/02/19 08/02/19 06:20 06:20 16:16 WBC 12.1 H RBC 3.02 L Hgb 8.7 L Hct 25.6 L D MCV 84.6 MCH 28.7 MCHC 33.9 RDW 17.3 H Plt Count 222 MPV 7.9 Sodium 131 L Potassium 4.8 Chloride 98 Carbon Dioxide 25 Anion Gap 8 BUN 21.4 H Creatinine 0.7 Est GFR (CKD-EPI)AfAm 117.22 Est GFR (CKD-EPI)NonAf 101.14 POC Glucometer 227 Random Glucose 221 H Calcium 8.7 08/02/19 08/03/19 20:48 06:05 WBC RBC Hgb Hct MCV MCH MCHC RDW Plt Count MPV Sodium Potassium Chloride Carbon Dioxide Anion Gap BUN Creatinine Est GFR (CKD-EPI)AfAm Est GFR (CKD-EPI)NonAf POC Glucometer 287 346 Random Glucose Calcium Active Medications Generic Name Dose Route Start Last Admin Trade Name Freq PRN Reason Stop Dose Admin Acetaminophen 1,000 mg 07/23/19 03:41 08/02/19 00:00 Tylenol - PO 1,000 mg Q6H PRN Administration PAIN LEVEL 1 - 3 Amlodipine Besylate 10 mg 07/23/19 22:00 08/02/19 21:00 Norvasc - PO 10 mg HS MOLLY Administration Atorvastatin Calcium 10 mg 07/23/19 09:15 08/02/19 21:00 Lipitor - PO 10 mg HS MOLLY Administration Cyclobenzaprine HCl 10 mg 07/23/19 10:00 08/02/19 21:00 Flexeril - PO 10 mg BID MOLLY Administration Dexamethasone Sodium Phosphate 4 mg 07/30/19 16:15 08/03/19 04:58 Decadron Injection - IVPUSH 4 mg Q12H MOLLY Administration Docusate Sodium 100 mg 07/23/19 10:00 08/02/19 21:00 Colace - PO 100 mg BID MOLLY Administration Folic Acid 1 mg 07/30/19 10:00 08/02/19 10:04 Folic Acid - PO 1 mg DAILY MOLLY Administration Insulin Aspart 1 vial 07/23/19 16:30 08/03/19 06:07 Novolog Vial Sliding Scale - SQ 6 units TIDAC MOLLY Administration Protocol Losartan Potassium 50 mg 07/23/19 10:00 08/02/19 10:03 Cozaar - PO 50 mg DAILY MOLLY Administration Morphine Sulfate 15 mg 07/31/19 22:00 08/02/19 21:01 Ms Contin - PO 15 mg BID MOLLY Administration Oxycodone HCl 10 mg 07/31/19 18:59 08/03/19 04:58 Roxicodone - PO 10 mg Q4H PRN Administration PAIN LEVEL 1-5 Pantoprazole Sodium 40 mg 07/30/19 10:00 08/02/19 10:03 Protonix - PO 40 mg DAILY MOLLY Administration Polyethylene Glycol 17 gm 07/26/19 22:00 08/02/19 21:00 Miralax (For Daily Use) - PO 17 gm BID MOLLY Administration Pramipexole Dihydrochloride 0.25 mg 08/01/19 22:00 08/02/19 21:00 Mirapex - PO 0.25 mg HS MOLLY Administration ASSESSMENT/PLAN: Patient is a 64-year-old male with PMHx of prostate cancer, recent lung cancer with metastasis to the bone, diabetes and hyperlipidemia who presented to the ED with right upper arm pain which started after pushing himself up onto his cane. # Metastatic Lung cancer with bone mets. -Heme following, Dr. Syed, appreciate recommendations -molecular studies pending from [facility] -taper decadron 4BID -starting lovenox 30 for prophylaxis -RT consultation for stereotactic to brain lesion -considering proceeding with SRS to single brain met prior to commencing systemic tx which has been discussed by Dr. Syed -neuro consultation Dr. Damon appreciated -port placed yesterday for chemo -need to discuss with dr severino plans before d/c Humeral fracture - Orthopedic surgery consulted (Dr. Franklin), appreciate recommendations - Patient placed in arriaza functional brace for several weeks; patient to follow up outpatient with x-rays. - Per ortho: No surgical orthopedic management - Patient will stay in Arriaza brace for next several weeks, with X-rays weekly for the first 3 weeks , and every 2-3 weeks after that until fracture healed. - Patient will need X-rays taken at the hospital of his right humerus the day before his office visit. - Neurosurgery (Dr. Parham) consulted, appreciate recommendations - Patient has multiple spine mets, however, he should be allowed to ambulate with an abdominal binder. - Pain control: Transition to oral pain medications, minimize narcotic use; avoid NSAIDs - DVT prophylaxis - Ice/Elevation of right forearm and wrist. Ice to right humerus (not directly on skin) - PT for RUE (non weight bearing); AROM of hand and fingers and elbow > will assess patient after we receive recommendations from Neurosurgery - Consider consulted palliative care to help with pain management # Hyponatremia - 129 this AM -restatred patient on NS @75 # Anemia - Hgb 8.7 this AM # Hyperlipidemia - Continue home simvastatin # Diabetes Mellitus - ISS - Will resume home Januvia at discharge # Hypertension - Continue home Losartan - Continue home Norvasc # DVT Prophylaxis - Lovenox 30 sq daily -Dispo: pending scheduling of steriotactic radiosurgery Problem List - Problems (1) Anemia Code(s): D64.9 - ANEMIA, UNSPECIFIED (2) Humeral fracture Code(s): S42.309A - UNSP FRACTURE OF SHAFT OF HUMERUS, UNSP ARM, INIT (3) Intractable pain Code(s): R52 - PAIN, UNSPECIFIED Visit type - Emergency Visit Emergency Visit: Yes ED Registration Date: 07/23/19 Care time: The patient presented to the Emergency Department on the above date and was hospitalized for further evaluation of their emergent condition. - New Patient This patient is new to me today: No - Critical Care Critical Care patient: No ATTENDING PHYSICIAN STATEMENT I saw and evaluated the patient. I reviewed the resident's note and discussed the case with the resident. I agree with the resident's findings and plan as documented. SUBJECTIVE: OBJECTIVE: ASSESSMENT AND PLAN:
[2019-08-03 07:54] LABS: HEMATOCRIT 25.2 % (35.4-49); HEMOGLOBIN 8.7 GM/dL (11.7-16.9); MCH 29.2 pg (25.7-33.7); MCHC 34.4 g/dl (32.0-35.9); MEAN PLT VOLUME 8.1 fl (7.5-11.1); PLATELET COUNT 204 K/MM3 (134-434); RBC 2.97 M/mm3 (4.00-5.60); RDW 17.8 % (11.9-15.9); WHITE BLOOD COUNT 10.7 K/mm3 (4.0-10.0)
[2019-08-03 08:15] LABS: CALCIUM 8.5 mg/dL (8.5-10.1); CREATININE 0.8 mg/dL (0.55-1.3); POTASSIUM 4.4 mmol/L (3.5-5.1)
--- NOTE | 2019-08-03 09:03 | PN ---
Progress Note (short form) - Note Progress Note: Patient seen and examined c/o rt. arm and back pain AFVSS Cor: RSR, No murmurs, No gallops Lungs: Clear to P&A Abd: Soft, Normal bowel sounds, No organomegaly Ext:No significant edema Labs/meds reviewed A/P 64 y/o patient with newly diagnosed metastatic lung cancer, with bone mets, who presents following pathological fracture R humerus. Rt. frontal 1.7 cm lesion with perilesional edema Aslo with multiple verebral metastases , S1 lesion with epidural extension Biopsy of RLLlesion c/w adenoca PDL 1<1% also with b/l cerebral infarcts continue dexaMETHasone 4mg bid with protonix to f/u with SRS at [facility] and Dr. Syed closely as outpatient Home oxygen evaluation Discussed with Dr. Mcguire
[2019-08-03] MEDS ORDERED: DEXAMETHASONE SOD PHOSPHATE 4 MG/1 ML VIAL IVPUSH SCH ×2 (10:00→22:00)
[2019-08-03] MEDS: morphine SO4 SUSTAINED ACTING 15 MG TABLET.SA PO SCH ×2 (10:28→21:09)
[2019-08-03] MEDS: PANTOPRAZOLE 40 MG TABLET (FP) PO SCH (10:31)
[2019-08-03] MEDS: CYCLOBENZAPRINE HCL 10 MG TABLET (FP) PO SCH ×2 (10:31→21:10)
[2019-08-03] MEDS: LOSARTAN POTASSIUM 50 MG TABLET (FP) PO SCH (10:31)
[2019-08-03] MEDS: DOCUSATE SODIUM 100 MG CAPSULE (FP) PO SCH ×2 (10:31→21:09)
[2019-08-03] MEDS: FOLIC ACID 1 MG TABLET (FP) PO SCH (10:31)
[2019-08-03] MEDS: POLYETHYLENE GLYCOL 3350 119 GM BTL PO SCH ×2 (10:33→21:12)
[2019-08-03] MEDS: glipiZIDE 5 MG TABLET (FP) PO SCH (13:15)
--- NOTE | 2019-08-03 13:48 | PN ---
Teaching Attending Note Name of Resident: Kirsty Cm ATTENDING PHYSICIAN STATEMENT I saw and evaluated the patient. I reviewed the resident's note and discussed the case with the resident. I agree with the resident's findings and plan as documented. SUBJECTIVE: No fever or chills. no abd pain or back pain. RUE pain. no weakness or numbness or tingling OBJECTIVE: NAD, comfortable in bed CV: RRR, no MRG Lungs: CATB Ext: No edema or erythema on LE. RUE with a brace on upper arm. Neuro of LE: strength 5/5 in R hip flexion, and 5/5 in L hip flexion , 5/5 knee flexion /extension and 5/5 ankle dorsiflexion and plantar flexion 2+ knee jerk b/l skin: port with clean dressing on R subclavicular area. ASSESSMENT AND PLAN: Unfortunate 64 y/o man with h/o HTN, HLP, prostate cancer, PAD s/p L iliac vessel angioplasty, PCI , h/o heavy smoking, recent diagnossi of lung cancer with mets to bone and brain who presented with pain in RUE trying to get up form his chair. He was found tohave a spiral Fx of the R humerus 1- R humerus Fx: cont brace. possible sx as out pt before radiation f/u with ortho 2- H/o DM : sugar is elevated due to steroids - will resume his home sitagliptin and add low dose glipizide while on steroids - cont SSI here 3- Lung adenocarcinoma with bone and brain mets. - plan for Steriotactic radiosurgery, chemo , then humerus sx before radiation to Humerus - d/ w heme: patient is to be called from [facility] for radiation arrangements. - also cont decadron at 4 mg bID until tapered as out pt. switch to po - cont pain control - might need prolonged monitoring to r/o chronic A fib. - case was d/w with Dr. Montiel by dr. Cartagena yesterday 4- HTN: Norvasc and losartan 5- DVT PX: Lovenox. as out pt , he will cont on aspirin not lovenox Patient is ready for discharge, but home supplies were not delivered yet.
[2019-08-03] MEDS: SODIUM CHLORIDE 1,000 ML IV SCH (15:07)
--- NOTE | 2019-08-03 17:40 | PN ---
Progress Note (short form) - Note Progress Note: Patient sitting comfortably in chair. No new complaints
--- NOTE | 2019-08-03 19:08 | PN ---
Progress Note (short form) - Note Progress Note: Patient seen and examined. Voices no complaints ROS: 14 points elicited in detail and negative or as per HPI Last Vital Signs Temp Pulse Resp BP Pulse Ox 97.8 F 103 H 20 150/78 96 08/03/19 18:09 08/03/19 18:09 08/03/19 18:09 08/03/19 18:09 08/03/19 14:39 Cor: RSR, No murmurs, No gallops Lungs: Clear to P&A Abd: Soft, Normal bowel sounds, No organomegaly Ext:No significant edema Skin: No obvious rash Neuro: Moves all extremities Psych: Judgement conserved 08/03/19 06:00 08/03/19 06:00 Current Medications Acetaminophen (Tylenol -) 1,000 mg PO Q6H PRN PRN Reason: PAIN LEVEL 1 - 3 Last Admin: 08/02/19 00:00 Dose: 1,000 mg Amlodipine Besylate (Norvasc -) 10 mg PO [facility] Last Admin: 08/02/19 21:00 Dose: 10 mg Atorvastatin Calcium (Lipitor -) 10 mg PO [facility] Last Admin: 08/02/19 21:00 Dose: 10 mg Cyclobenzaprine HCl (Flexeril -) 10 mg PO BID [facility] Last Admin: 08/03/19 10:31 Dose: 10 mg Dexamethasone (Decadron -) 4 mg PO BID [facility] Docusate Sodium (Colace -) 100 mg PO BID [facility] Last Admin: 08/03/19 10:31 Dose: 100 mg Folic Acid (Folic Acid -) 1 mg PO DAILY [facility] Last Admin: 08/03/19 10:31 Dose: 1 mg Glipizide (Glucotrol -) 2.5 mg PO DAILY@0700 [facility] Last Admin: 08/03/19 13:15 Dose: 2.5 mg Sodium Chloride (Normal Saline -) 1,000 mls @ 75 mls/hr IV ASDIR [facility] Last Admin: 08/03/19 15:07 Dose: 75 mls/hr Insulin Aspart (Novolog Vial Sliding Scale -) 1 vial SQ TIDAC [facility]; Protocol Last Admin: 08/03/19 17:29 Dose: 6 units Losartan Potassium (Cozaar -) 50 mg PO DAILY [facility] Last Admin: 08/03/19 10:31 Dose: 50 mg Morphine Sulfate (Ms Contin -) 15 mg PO BID [facility] Last Admin: 08/03/19 10:28 Dose: 15 mg Oxycodone HCl (Roxicodone -) 10 mg PO Q4H PRN PRN Reason: PAIN LEVEL 1-5 Last Admin: 08/03/19 10:27 Dose: 10 mg Pantoprazole Sodium (Protonix -) 40 mg PO DAILY [facility] Last Admin: 08/03/19 10:31 Dose: 40 mg Polyethylene Glycol (Miralax (For Daily Use) -) 17 gm PO BID [facility] Last Admin: 08/03/19 10:33 Dose: 17 gm Pramipexole Dihydrochloride (Mirapex -) 0.25 mg PO HS [facility] Last Admin: 08/02/19 21:00 Dose: 0.25 mg Sitagliptin Phosphate (Januvia -) 100 mg PO DAILY@0700 [facility] Assessment and Plan 64 y/o gentleman with newly diagnosed metastatic lung cancer, with bone mets, who presents following pathological fracture R humerus. Rt. frontal 1.7 cm lesion with perilesional edema Also with multiple vertebral metastases , S1 lesion with epidural extension Biopsy of RLLlesion c/w adenoca PDL 1<1% also with b/l cerebral infarcts continue Dexamethasone 4mg bid with protonix to f/u with SRS at [facility] and Dr. Syed closely as outpatient for chemotherapy Home oxygen evaluation
[2019-08-03] MEDS: amLODIPine BESYLATE 10 MG TABLET (FP) PO SCH (21:10)
[2019-08-03] MEDS: DEXAMETHASONE 4 MG TABLET (FP) PO SCH (21:10)
[2019-08-03] MEDS: ATORVASTATIN CA 10 MG TABLET (FP) PO SCH (21:10)
[2019-08-03] MEDS: PRAMIPEXOLE DIHYDROCHLORIDE 0.25 MG TABLET PO SCH (21:11)
[2019-08-04] MEDS: INSULIN SLIDING SCALE (NOVOLOG) 1 VIAL SQ SCH ×3 (06:02→17:29)
[2019-08-04] MEDS: glipiZIDE 5 MG TABLET (FP) PO SCH (06:03)
[2019-08-04] MEDS ORDERED: INSULIN (NOVOLOG) ASPART 100 UNITS/ML 10ML VIAL ONE (06:09)
[2019-08-04 07:36] LABS: HEMOGLOBIN 8.2 GM/dL (11.7-16.9); MCH 28.8 pg (25.7-33.7); MCHC 34.3 g/dl (32.0-35.9); MEAN CELL VOLUME 84.1 fl (80-96); MEAN PLT VOLUME 8.2 fl (7.5-11.1); PLATELET COUNT 203 K/MM3 (134-434); RBC 2.85 M/mm3 (4.00-5.60); RDW 17.2 % (11.9-15.9); WHITE BLOOD COUNT 11.9 K/mm3 (4.0-10.0)
[2019-08-04 07:52] LABS: BLOOD UREA NITROGEN 24.2 mg/dL (7-18); CALCIUM 8.5 mg/dL (8.5-10.1); CREATININE 0.6 mg/dL (0.55-1.3); POTASSIUM 4.6 mmol/L (3.5-5.1)
[2019-08-04] MEDS: morphine SO4 SUSTAINED ACTING 15 MG TABLET.SA PO SCH ×2 (09:34→21:15)
[2019-08-04] MEDS: CYCLOBENZAPRINE HCL 10 MG TABLET (FP) PO SCH ×2 (09:35→21:13)
[2019-08-04] MEDS: PANTOPRAZOLE 40 MG TABLET (FP) PO SCH (09:35)
[2019-08-04] MEDS: POLYETHYLENE GLYCOL 3350 119 GM BTL PO SCH ×2 (09:35→21:14)
[2019-08-04] MEDS: DOCUSATE SODIUM 100 MG CAPSULE (FP) PO SCH ×2 (09:35→21:13)
[2019-08-04] MEDS: DEXAMETHASONE 4 MG TABLET (FP) PO SCH ×2 (09:35→21:13)
[2019-08-04] MEDS: FOLIC ACID 1 MG TABLET (FP) PO SCH (09:35)
[2019-08-04] MEDS: LOSARTAN POTASSIUM 50 MG TABLET (FP) PO SCH (09:41)
--- NOTE | 2019-08-04 12:17 | PN ---
Progress Note (short form) - Note Progress Note: ORTHOPEDIC SURGERY PROGRESS NOTE Department of Orthopedic Surgery SUBJECTIVE No acute events today. Denies chest pain, shortness of breath, or calf pain. No nausea or vomiting. Tolerating oral intake. Right arm pain controlled in brace. Still having back pain. PHYSICAL EXAMINATION General: Alert, oriented, cooperative and no distress. Right Upper Extremity: Functional brace in place and intact; Skin intact, improved swelling of arm, forearm and hand, no lesions, rashes or ulcers noted. Muscle mass equal and symmetric to contralateral side. No atrophy noted. No masses or effusions noted. No tenderness to palpation at hand wrist or forearm. + TTP at the humerus. Full passive and active ROM, free from pain of the elbow and wrist and fingers. M/R/U/MSK/AX motor intact; SILT distally; 2+ radial pulses; Cap refill brisk. Compartments soft and compressible. No signs of compartment syndrome. DVT Exam: No evidence of DVT seen on physical exam; No cords or calf tenderness ; No significant calf/ankle edema. Intake & Output 08/02/19 08/03/19 08/04/19 23:59 23:59 23:59 Intake Total 550 625 675 Output Total 1250 Balance -700 625 675 Intake: IV 225 675 saline lock 225 675 IVPB 0 Oral 550 400 Output: Urine 1250 Void 1250 Other: Voiding Method Urinal Toilet Toilet Bowel Movement Yes Yes # Bowel Movements 1 Active Medications Generic Name Dose Route Start Last Admin Trade Name Freq PRN Reason Stop Dose Admin Acetaminophen 1,000 mg 07/23/19 03:41 08/02/19 00:00 Tylenol - PO 1,000 mg Q6H PRN Administration PAIN LEVEL 1 - 3 Amlodipine Besylate 10 mg 07/23/19 22:00 08/03/19 21:10 Norvasc - PO 10 mg HS MOLLY Administration Atorvastatin Calcium 10 mg 07/23/19 09:15 08/03/19 21:10 Lipitor - PO 10 mg HS MOLLY Administration Cyclobenzaprine HCl 10 mg 07/23/19 10:00 08/04/19 09:35 Flexeril - PO 10 mg BID MOLLY Administration Dexamethasone 4 mg 08/03/19 22:00 08/04/19 09:35 Decadron - PO 4 mg BID MOLLY Administration Docusate Sodium 100 mg 07/23/19 10:00 08/04/19 09:35 Colace - PO 100 mg BID MOLLY Administration Folic Acid 1 mg 07/30/19 10:00 08/04/19 09:35 Folic Acid - PO 1 mg DAILY MOLLY Administration Glipizide 2.5 mg 08/03/19 10:25 08/04/19 06:03 Glucotrol - PO 2.5 mg DAILY@0700 MOLLY Administration Sodium Chloride 1,000 mls @ 75 mls/hr 08/03/19 08:30 08/03/19 15:07 Normal Saline - IV 75 mls/hr ASDIR MOLLY Administration Insulin Aspart 1 vial 07/23/19 16:30 08/04/19 12:00 Novolog Vial Sliding Scale - SQ Not Given TIDAC PENDING SALE TO [facility] Protocol Losartan Potassium 50 mg 07/23/19 10:00 08/04/19 09:41 Cozaar - PO 50 mg DAILY MOLLY Administration Morphine Sulfate 15 mg 07/31/19 22:00 08/04/19 09:34 Ms Contin - PO 15 mg BID MOLLY Administration Oxycodone HCl 10 mg 07/31/19 18:59 08/03/19 10:27 Roxicodone - PO 10 mg Q4H PRN Administration PAIN LEVEL 1-5 Pantoprazole Sodium 40 mg 07/30/19 10:00 08/04/19 09:35 Protonix - PO 40 mg DAILY MOLLY Administration Polyethylene Glycol 17 gm 07/26/19 22:00 08/04/19 09:35 Miralax (For Daily Use) - PO 17 gm BID MOLLY Administration Pramipexole Dihydrochloride 0.25 mg 08/01/19 22:00 08/03/19 21:11 Mirapex - PO 0.25 mg HS MOLLY Administration Sitagliptin Phosphate 100 mg 08/04/19 07:00 08/04/19 06:10 Januvia - PO 100 mg DAILY@0700 MOLLY Administration Vital Signs (last) Temp Pulse Resp BP Pulse Ox 98.3 F 83 20 130/74 93 L 08/04/19 06:00 08/04/19 06:00 08/04/19 06:00 08/04/19 06:00 08/03/19 21:00 Laboratory (coagulation) PT with INR 14.10 SEC (9.7-13.0) H 09/09/19 23:34 Laboratory 08/04/19 06:00 08/04/19 06:00 ASSESSMENT AND PLAN Mr. Higgins is a 64 year old male with a right pathologic mid-distal third humeral shaft fracture - in functional brace. Repeat X-rays of right humerus show mild displacement of fracture in comparison to initial post-reduction X- rays. - Patient hould follow up with an orthopedic oncologist Dr. Stef Ramírez at [facility] ([phone]) within 1 week of discharge from the hospital to discuss surgical versus non-surgical options for his fracture. - All questions were answered. Thank you for involving our team in the care of this patient. - Pain control: Transition to oral pain medications, minimize narcotic use; avoid NSAIDs - DVT prophylaxis - Ice/Elevation of right forearm and wrist. Ice to right humerus (not directly on skin) - Appreciate medical management (Nutrition optimization, decubitus precautions heel/sacrum, neuro-checks) - PT for RUE (non weight bearing); AROM of hand and fingers and elbow - Patient will stay in Delcid brace to RUE - No further orthopedic surgical intervention at this time.
[2019-08-04] MEDS: SODIUM CHLORIDE 1,000 ML IV SCH (12:29)
--- NOTE | 2019-08-04 14:42 | PN ---
Progress Note (short form) - Note Progress Note: Subjective: No fever or chills. pain in RUE. no constipation . No weakness or tingling or numbness Objective: Vital Signs: Last Vital Signs Temp Pulse Resp BP Pulse Ox 98.3 F 83 20 130/74 93 L 08/04/19 06:00 08/04/19 06:00 08/04/19 06:00 08/04/19 06:00 08/03/19 21:00 Laboratory Results - last 24 hr 08/03/19 08/04/19 08/04/19 17:08 06:00 06:00 WBC 11.9 H RBC 2.85 L Hgb 8.2 L Hct 24.0 L MCV 84.1 MCH 28.8 MCHC 34.3 RDW 17.2 H Plt Count 203 MPV 8.2 Sodium 132 L Potassium 4.6 Chloride 99 Carbon Dioxide 22 Anion Gap 11 BUN 24.2 H Creatinine 0.6 Est GFR (CKD-EPI)AfAm 124.89 Est GFR (CKD-EPI)NonAf 107.76 POC Glucometer 301 Random Glucose 213 H Calcium 8.5 08/04/19 08/04/19 06:01 11:03 WBC RBC Hgb Hct MCV MCH MCHC RDW Plt Count MPV Sodium Potassium Chloride Carbon Dioxide Anion Gap BUN Creatinine Est GFR (CKD-EPI)AfAm Est GFR (CKD-EPI)NonAf POC Glucometer 242 152 Random Glucose Calcium Physical Exam: NAD, comfortable in bed CV: RRR, no MRG Lungs: CATB Ext: No edema or erythema on LE. RUE with a brace on upper arm.Rp 2+ Neuro of LE: strength 5/5 in R hip flexion, and 5/5 in L hip flexion , 5/5 knee flexion /extension and 5/5 ankle dorsiflexion and plantar flexion 2+ knee jerk b/l skin: port with clean dressing on R subclavicular area. ASSESSMENT AND PLAN: Unfortunate 64 y/o man with h/o HTN, HLP, prostate cancer, PAD s/p L iliac vessel angioplasty, PCI , h/o heavy smoking, recent diagnossi of lung cancer with mets to bone and brain who presented with pain in RUE trying to get up form his chair. He was found tohave a spiral Fx of the R humerus 1- R humerus Fx. 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 Ramírez in 1 week - cont glipizide and Januvia and SSI - he will be called by [facility] team for steriotactic surgery - cont decadron 4 bid until tapered by Dr. Montiel - need prolonged monitoring for a fib. will refer to card - cont norvasc and losartan - f/u with Dr. Syed as out tp - will arrange for O2 at home to use with ambulation ( 2 L ) - Lovenox Visit type - Emergency Visit Emergency Visit: Yes ED Registration Date: 07/23/19 Care time: The patient presented to the Emergency Department on the above date and was hospitalized for further evaluation of their emergent condition. - New Patient This patient is new to me today: No - Critical Care Critical Care patient: No
--- NOTE | 2019-08-04 16:23 | PN ---
Progress Note (short form) - Note Progress Note: Patient seen and examined. Voices no complaints ROS: 14 points elicited in detail and negative or as per HPI Last Vital Signs Temp Pulse Resp BP Pulse Ox 97.8 F 82 20 136/65 93 L 08/04/19 15:40 08/04/19 15:40 08/04/19 15:40 08/04/19 15:40 08/03/19 21:00 Cor: RSR, No murmurs, No gallops Lungs: Clear to P&A Abd: Soft, Normal bowel sounds, No organomegaly Ext:No significant edema Skin: No obvious rash Neuro: Moves all extremities Psych: Judgement conserved 08/04/19 06:00 08/04/19 06:00 Current Medications Acetaminophen (Tylenol -) 1,000 mg PO Q6H PRN PRN Reason: PAIN LEVEL 1 - 3 Last Admin: 08/02/19 00:00 Dose: 1,000 mg Amlodipine Besylate (Norvasc -) 10 mg PO [facility] Last Admin: 08/03/19 21:10 Dose: 10 mg Atorvastatin Calcium (Lipitor -) 10 mg PO [facility] Last Admin: 08/03/19 21:10 Dose: 10 mg Cyclobenzaprine HCl (Flexeril -) 10 mg PO BID [facility] Last Admin: 08/04/19 09:35 Dose: 10 mg Dexamethasone (Decadron -) 4 mg PO BID [facility] Last Admin: 08/04/19 09:35 Dose: 4 mg Docusate Sodium (Colace -) 100 mg PO BID [facility] Last Admin: 08/04/19 09:35 Dose: 100 mg Folic Acid (Folic Acid -) 1 mg PO DAILY [facility] Last Admin: 08/04/19 09:35 Dose: 1 mg Glipizide (Glucotrol -) 2.5 mg PO DAILY@0700 [facility] Last Admin: 08/04/19 06:03 Dose: 2.5 mg Sodium Chloride (Normal Saline -) 1,000 mls @ 75 mls/hr IV ASDIR [facility] Last Admin: 08/04/19 12:29 Dose: Not Given Insulin Aspart (Novolog Vial Sliding Scale -) 1 vial SQ TIDAC [facility]; Protocol Last Admin: 08/04/19 12:00 Dose: Not Given Losartan Potassium (Cozaar -) 50 mg PO DAILY [facility] Last Admin: 08/04/19 09:41 Dose: 50 mg Morphine Sulfate (Ms Contin -) 15 mg PO BID [facility] Last Admin: 08/04/19 09:34 Dose: 15 mg Oxycodone HCl (Roxicodone -) 10 mg PO Q4H PRN PRN Reason: PAIN LEVEL 1-5 Last Admin: 08/03/19 10:27 Dose: 10 mg Pantoprazole Sodium (Protonix -) 40 mg PO DAILY [facility] Last Admin: 08/04/19 09:35 Dose: 40 mg Polyethylene Glycol (Miralax (For Daily Use) -) 17 gm PO BID [facility] Last Admin: 08/04/19 09:35 Dose: 17 gm Pramipexole Dihydrochloride (Mirapex -) 0.25 mg PO HS [facility] Last Admin: 08/03/19 21:11 Dose: 0.25 mg Sitagliptin Phosphate (Januvia -) 100 mg PO DAILY@0700 [facility] Last Admin: 08/04/19 06:10 Dose: 100 mg Assessment and Plan 64 y/o gentleman with newly diagnosed metastatic lung cancer, with bone mets, who presents following pathological fracture R humerus. Rt. frontal 1.7 cm lesion with perilesional edema Also with multiple vertebral metastases , S1 lesion with epidural extension Biopsy of RLLlesion c/w adenoca PDL 1<1% also with b/l cerebral infarcts continue Dexamethasone 4mg bid with protonix to f/u with [facility] at [facility] and Dr. Syed closely as outpatient for chemotherapy to f/u with Orthopedic Oncologist at [facility] as well Awaiting home O2 services. Possible discharge in AM
[2019-08-04] MEDS: amLODIPine BESYLATE 10 MG TABLET (FP) PO SCH (21:13)
[2019-08-04] MEDS: ATORVASTATIN CA 10 MG TABLET (FP) PO SCH (21:13)
[2019-08-04] MEDS: PRAMIPEXOLE DIHYDROCHLORIDE 0.25 MG TABLET PO SCH (21:14)
[2019-08-04] MEDS: oxyCODONE HCL 5 MG TABLET PO PRN (23:48)
[2019-08-05] MEDS ORDERED: MELATONIN 5 MG TABLETS PO ONE (03:06)
[2019-08-05] MEDS: glipiZIDE 5 MG TABLET (FP) PO SCH (06:41)
[2019-08-05] MEDS: INSULIN SLIDING SCALE (NOVOLOG) 1 VIAL SQ SCH ×3 (06:41→17:49)
[2019-08-05] MEDS: morphine SO4 SUSTAINED ACTING 15 MG TABLET.SA PO SCH (09:46)
[2019-08-05] MEDS: LOSARTAN POTASSIUM 50 MG TABLET (FP) PO SCH (09:47)
[2019-08-05] MEDS: PANTOPRAZOLE 40 MG TABLET (FP) PO SCH (09:47)
[2019-08-05] MEDS: DOCUSATE SODIUM 100 MG CAPSULE (FP) PO SCH (09:47)
[2019-08-05] MEDS: CYCLOBENZAPRINE HCL 10 MG TABLET (FP) PO SCH (09:47)
[2019-08-05] MEDS: DEXAMETHASONE 4 MG TABLET (FP) PO SCH (09:47)
[2019-08-05] MEDS: FOLIC ACID 1 MG TABLET (FP) PO SCH (09:47)
[2019-08-05] MEDS: POLYETHYLENE GLYCOL 3350 119 GM BTL PO SCH (09:48)
--- NOTE | 2019-08-05 11:53 | PN ---
Progress Note (short form) - Note Progress Note: Hematology oncology f/u Subjective: Patient seen and examined lying in bed. Patient endorses pain overnight but stats that it is currently controlled with medications. Patient also endorses several episodes of hemoptysis overnight. He states that with each episode, he coughed up approximately 1 tablespoon of sputum with was mixed with blood. He states that this is not the first time this has occurred. Objective: Vital Signs Temperature 97.4 F L 08/05/19 06:00 Pulse Rate 79 08/05/19 06:00 Respiratory Rate 18 08/05/19 06:00 Blood Pressure 136/70 08/05/19 06:00 O2 Sat by Pulse Oximetry (%) 95 08/04/19 21:00 PE: Gen: patient well appearing with right arm in air cast. NAD HEENT: Clear. EOMI, PERRLA Cardio: regular rate and rhythm, s1, s2, heard. No murmurs, gallops, rubs. Lungs: Clear to auscultation b/l down to the bases Abdomen: soft, nontender, nondistended. bowel sounds heard. Extremities: no peripheral edema. CBC, BMP 08/04/19 06:00 08/04/19 06:00 Home Medication List Medication Instructions Recorded Confirmed Type Losartan Potassium [Cozaar -] 50 mg PO DAILY 03/03/18 07/23/19 History Simvastatin 20 mg PO DAILY 03/03/18 07/23/19 History Sitagliptin Phosphate [Januvia] 100 mg PO DAILY 06/16/19 07/23/19 History Cyclobenzaprine HCl 10 mg PO DAILY 07/23/19 07/23/19 History Ergocalciferol (Vitamin D2) 50,000 unit PO WEEKLY 07/23/19 07/23/19 History [Vitamin D2] Oxycodone HCl 5 mg PO TID 07/23/19 07/23/19 History Tramadol HCl 50 mg PO BID 07/23/19 07/23/19 History Assessment & Plan: The patient is a 64 y/o gentleman with newly diagnosed metastatic lung cancer, with bone mets, who presents following pathological fracture R humerus. Brain imaging showed a 1.7 cm lesion in the right frontal lobe w/ surrounding edema and multiple surrounding infarcts. #metastatic lung Ca w/ karan and brain mets. -patient to f/u closely w/ Dr. newsome on discharge -patient to f/u w/ [facility] for treatment of brain mass -c/w dexamethasone 4mg BID on discharge -protonix 40mg daily on discharge -patient requires home O2 on discharge #pathologic fx in the R humerus -s/p reduction and fixation by Dr. Franklin -Patient to f/u w/ orthopedic oncologist after discharge for definitie treatment as per ortho #new infarcts on ct -ok to d/c on ASA monotherapy as per neuro
[2019-08-05] MEDS: ACETAMINOPHEN 500 MG TABLET (FP) PO PRN (12:06)
[2019-08-05 13:54] VITALS: BP 125/70; PULSE 95; TEMP 98
--- NOTE | 2019-08-05 15:41 | PN ---
Teaching Attending Note Name of Resident: Eleanor uPga ATTENDING PHYSICIAN STATEMENT I saw and evaluated the patient. I reviewed the resident's note and discussed the case with the resident. I agree with the resident's findings and plan as documented. SUBJECTIVE: No fever or chills. had pain in all of his body yesterday. Small amount of hemoptysis this am OBJECTIVE: NAD, comfortable in bed CV: RRR, no MRG Lungs: CATB Ext: No edema or erythema on LE. RUE with a brace on upper arm Neuro of LE: strength 5/5 in R and left hip flexion , 5/5 b/l knee flexion /extension and 5/5 ankle dorsiflexion and plantar flexion 1 + knee jerk b/l skin: port with clean dressing on R subclavicular area. ASSESSMENT AND PLAN: Unfortunate 64 y/o man with h/o HTN, HLP, prostate cancer, PAD s/p L iliac vessel angioplasty, PCI , h/o heavy smoking, recent diagnossi of lung cancer with mets to bone and brain who presented with pain in RUE trying to get up form his chair. He was found tohave a spiral Fx of the R humerus 1- R humerus Fx. 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 Ramírez in 1 week - cont glipizide and Januvia after dc - he will be called by [facility] team for steriotactic surgery - cont decadron 4 bid until tapered by Dr. Montiel - need prolonged monitoring for a fib. will refer to card - cont norvasc and losartan - F/u with Dr. Syed as out tp - D/w SW. will arrange for O2 at home to use with ambulation ( 2 L ) - Lovenox here , and will do aspirin after dc dispo: will be ready for dc today once O2 is set
--- NOTE | 2019-08-05 18:46 | DS ---
Physical Exam: SUBJECTIVE: Patient seen and examined OBJECTIVE: Vital Signs Period Temp Pulse Resp BP Sys/[place] Pulse Ox Last 24 Hr 97.4 F-98.5 F 79-95 16-20 125-160/70-78 95-95 PHYSICAL EXAM GENERAL: The patient is awake, alert, and fully oriented, in no acute distress. HEAD: Normal with no signs of trauma. EYES: PERRL, extraocular movements intact, sclera anicteric, conjunctiva clear. ENT: Ears normal, nares patent, oropharynx clear without exudates, moist mucous membranes. NECK: Trachea midline, full range of motion, supple. LUNGS: Breath sounds equal, clear to auscultation bilaterally, no wheezes, no crackles, no accessory muscle use. HEART: Regular rate and rhythm, S1, S2 without murmur, rub or gallop. ABDOMEN: Soft, nontender, nondistended, normoactive bowel sounds, no guarding, no rebound, no hepatosplenomegaly, no masses. EXTREMITIES: 2+ pulses, warm, well-perfused, no edema. NEUROLOGICAL: Cranial nerves II through XII grossly intact. Normal speech, gait not observed. PSYCH: Normal mood, normal affect. SKIN: Warm, dry, normal turgor, no rashes or lesions noted. LABS Laboratory Results - last 24 hr 08/04/19 08/05/19 08/05/19 21:06 06:40 12:00 POC Glucometer 329 239 175 08/05/19 17:40 POC Glucometer 328 HOSPITAL COURSE: Date of Admission:07/23/19 Date of Discharge: 08/05/19 Discharge Summary Reason For Visit: INTRACTABLE PAIN,ANEMIA,PATHOLOGICAL FRACTURE Current Active Problems Humeral fracture (Acute) Intractable pain (Acute) Pathologic fracture (Acute) Adenocarcinoma, lung (Chronic) Anemia (Chronic) Condition: Stable - Instructions Diet, Activity, Other Instructions: You came to the hospital because you had a pathologic fracture of your RIGHT humerus. Your arm fractured in an area where you had a metastatic lesion from your cancer. In addition your hemoglobin was low and we transfused you 2 units of blood. While you were in the hospital you saw an orthopedic surgeon, they recommended: - Ice/Elevation of right forearm and wrist. Ice to right humerus (not directly on skin) - Physical therapy for RIGHT upper extremities (NON-WEIGHT BEARING) - Stay in Delcid brace with sling for next several weeks, with X-rays weekly for the first 3 weeks, and every 2-3 weeks after that until fracture healed. - You will need X-rays taken at the hospital of his right humerus the day before your office visit. You will need to follow up as an outpatient with Dr. Montiel, the radiation oncologist, for treatment of your brain metastasis prior to starting chemotherapy with Dr. Syed. you will be called from [facility] for the radiation therapy arrangements Please continue to take your home medications as prescribed with the following changes: - ADD Decadron 4mg BID, until you see Dr. Montiel. He will advise on the taper. do not stop this medicine abruptly - ADD Protonix 40mg daily - Aspirin 81mg daily - 2L Oxygen with Nasal Canula for use with walking. No smoking . Please follow up with the following doctors within 1 week of discharge from the hospital: Please follow up with your primary care physician Dr. Berry within one week and have your basic metabolic panel rechecked Dr. Montiel, the radiation oncologist for your stereotactic surgery Dr. Syed, for chemotherapy Dr. Stef Ramírez at [facility] ([phone]), orthopedic oncologist , within 1 week of discharge from the hospital to discuss surgical versus non- surgical options for his fracture. Follow up with cardiology, Dr. Cuadra, within 2 weeks as you need a heart monitor placed If you experience, increased pain, shortness of breath, back pain or chest pain , please return to the Emergency Department immediately. Referrals: Enrique Berry [Other] - 1 Week Tereso Tyson [Other] - 1 Week Haim Cuadra MD [Staff Physician] - Rakesh Franklin DO [Staff Physician] - 1 Week Disposition: HOME - Home Medications Comprehensive Discharge Medication List: Ambulatory Orders Losartan Potassium [Cozaar -] 50 mg PO DAILY 03/03/18 Simvastatin 20 mg PO DAILY 03/03/18 Amlodipine Besylate [Norvasc -] 10 mg PO HS #30 tablet 03/09/18 Sitagliptin Phosphate [Januvia] 100 mg PO DAILY 06/16/19 Cyclobenzaprine HCl 10 mg PO DAILY 07/23/19 Ergocalciferol (Vitamin D2) [Vitamin D2] 50,000 unit PO WEEKLY 07/23/19 Tramadol HCl 50 mg PO BID 07/23/19 Aspirin [ASA -] 81 mg PO DAILY #30 tab.chew 08/05/19 Dexamethasone [Decadron] 4 mg PO BID #60 tablet 08/05/19 Oxycodone HCl 10 mg PO Q8H PRN #21 tablet MDD 3 tab 08/05/19 Pantoprazole Sodium [Protonix -] 40 mg PO DAILY #30 tablet.ec 08/05/19 oxyCODONE SR [Oxycontin] 10 mg PO BID #14 tab.er.12h MDD 2 tab 08/05/19 - Discharge Referral Referred to [facility] No ATTENDING PHYSICIAN STATEMENT I saw and evaluated the patient. I reviewed the resident's note and discussed the case with the resident. I agree with the resident's findings and plan as documented. SUBJECTIVE: OBJECTIVE: ASSESSMENT AND PLAN:
== END 2019-08-05 19:19 | disposition home health service (06) | DRG 542 ==
LOC: JER 21:36 → JERBED 07-23 02:54 → J5S 07-23 18:23 → J7W 07-28 20:40
PROVIDERS: ADMIT Internal Medicine; ATTEND Internal Medicine
PROC: 30233N1 Transfusion of Nonautologous Red Blood Cells into Peripheral Vein, Percutaneous Approach (ICD-10-PCS; principal; 2019-07-26)
PROC: 02HV33Z Insertion of Infusion Device into Superior Vena Cava, Percutaneous Approach (ICD-10-PCS; 2019-08-02)
DX: M84.421A Pathological fracture, right humerus, initial encounter for fracture (principal); I63.9 Cerebral infarction, unspecified; G93.6 Cerebral edema; C34.90 Malignant neoplasm of unspecified part of unspecified bronchus or lung; C79.51 Secondary malignant neoplasm of bone; C79.31 Secondary malignant neoplasm of brain; E87.1 Hypo-osmolality and hyponatremia; E11.9 Type 2 diabetes mellitus without complications; E78.5 Hyperlipidemia, unspecified; D64.9 Anemia, unspecified; I10 Essential (primary) hypertension; M54.9 Dorsalgia, unspecified; R09.02 Hypoxemia; Z85.46 Personal history of malignant neoplasm of prostate
CPT/HCPCS: 36415; 36430; 36511; 36561; 70552-TC; 71045-TC-FY; 72128-TC; 72131-TC; 72142-TC; 72147-TC; 72149-TC; 73060-TC-RT-FY; 73070-TC-RT-FY; 76705-TC; 77001-TC-FY; 80048; 80053; 82248; 82728; 82962; 82977; 83540; 83550; 83735; 84100; 85025; 85027; 85610; 85730; 86850; 86900; 86901; 86922; 93005; 93010; 93306-TC; 94010; 94761; 97116-GP; 97162-GP; 99285-25; A9579; C1788; J7030; P9038; P9058